=== PATIENT | female | born 1950 | race Caucasian/White ===

== ENCOUNTER 2017-05-16 05:55 | Emergency (ER) | payer MEDICARE ==
[2017-05-16] MEDS ORDERED: Furosemide 20 MG/2 ML VIAL ONE (06:41)
[2017-05-16 06:45] LABS: #Basophils 0.1 thou/uL (0.0-0.2); #Eosinphils 0.2 thou/uL (0.0-0.7); #Lymphocytes 3.8 thou/uL (1.20-3.40); #Monocytes 0.9 thou/uL (0.11-0.59); #Neutrophils 5.7 thou/uL (1.40-6.50); %Basophils 0.9 % (0.0-1.0); %Eosinophils 2.1 % (0.0-10.0); %Lymphocytes 35.7 % (21.0-51.0); %Monocytes 7.9 % (0.0-10.0); %Neutrophils 53.3 % (42.0-75.0); Hemoglobin 14.1 g/dL (12.0-16.0); Mean Corpuscular HGB CONC 32.7 g/dL (32.0-36.0); Mean Corpuscular Hemoglobin 29.4 pg (27.0-31.0); Mean Corpuscular Volume 89.9 fl (81.0-99.0); Mean Platelet Volume 7.7 fL (7.4-10.4); Platelet Count 211 thou/uL (130-400); RBC Distribution Width 12.9 % (11.5-14.5); White Blood Cell (WBC) Count 10.7 thou/uL (4.8-10.8)
[2017-05-16 07:04] LABS: ALT (SGPT) 20 U/L (8-55); AST (SGOT) 26 U/L (5-34); Albumin 4.1 g/dL (3.4-4.8); Alkaline Phosphatase 113 U/L (40-150); Anion Gap 16 mmol/L (10-20); BUN (Urea Nitrogen) 11 mg/dL (9.8-20.1); Bilirubin, Total 0.5 mg/dL (0.2-1.2); Calc. Creatinine Clearance 0 mL/min (70-130); Calcium 9.1 mg/dL (7.8-10.44); Carbon Dioxide 25 mmol/L (23-31); Chloride 100 mmol/L (98-107); Estimated GFR-MDRD 49; Globulin 4.2 g/dL (2.4-3.5); Glucose 258 mg/dL (80-115); Potassium 3.6 mmol/L (3.5-5.1); Protein, Total 8.3 g/dL (6.0-8.3); Sodium 137 mmol/L (136-145)
[2017-05-16 07:07] LABS: CKMB 0.8 ng/mL (0-6.6); Troponin I 0.013 ng/mL (< 0.028)
--- NOTE | 2017-05-16 07:51 | RAD ---
TWO VIEWS CHEST: Date: 05-16-17 Comparison: 09-08-10 History: Chest pain. FINDINGS: There is mild pulmonary vascular prominence and mild prominence of the cardiac silhouette, stable. No pneumothorax, pleural fluid, focal consolidation or alveolar edema. There is multilevel mid thoracic spine disc space narrowing and anterior osteophyte formation. IMPRESSION: Prominent cardiac silhouette with mild pulmonary vascular congestion. No lobar consolidation or alveo lar edema. POS: [facility]
== END 2017-05-16 08:57 | disposition home or self-care (01) ==
LOC: ERS 05:55
DX: J40 Bronchitis, not specified as acute or chronic (principal); E11.9 Type 2 diabetes mellitus without complications; E03.9 Hypothyroidism, unspecified; I10 Essential (primary) hypertension; Z87.891 Personal history of nicotine dependence; Z79.84 Long term (current) use of oral hypoglycemic drugs; Z79.899 Other long term (current) drug therapy
CPT/HCPCS: 71046; 80053; 82553; 84484; 85025; 87040; 93005; 94640; 96374; J1940

== ENCOUNTER 2019-04-28 21:27 | Inpatient (IN) | payer MEDICARE ==
[2019-04-28 21:58] LABS: #Basophils 0.1 thou/uL (0.0-0.2); #Eosinphils 0.1 thou/uL (0.0-0.7); #Lymphocytes 3.3 thou/uL (1.20-3.40); #Monocytes 1.4 thou/uL (0.11-0.59); #Neutrophils 10.2 thou/uL (1.40-6.50); %Basophils 0.8 % (0.0-1.0); %Eosinophils 0.9 % (0.0-10.0); %Lymphocytes 21.8 % (21.0-51.0); %Monocytes 9.1 % (0.0-10.0); %Neutrophils 67.4 % (42.0-75.0); Hemoglobin 14.2 g/dL (12.0-16.0); Mean Corpuscular HGB CONC 32.5 g/dL (32.0-36.0); Mean Corpuscular Hemoglobin 29.9 pg (27.0-31.0); Mean Corpuscular Volume 91.9 fL (78.0-98.0); Mean Platelet Volume 7.5 fL (7.4-10.4); Platelet Count 351 thou/uL (130-400); RBC Distribution Width 15.3 % (11.5-14.5); Red Blood Cell (RBC) Count 4.74 mill/uL (4.20-5.40); White Blood Cell (WBC) Count 15.1 thou/uL (4.8-10.8)
--- NOTE | 2019-04-28 22:01 | RAD ---
Chest AP view INDICATION: Bradycardia with weakness COMPARISON: March 01, 2018 FINDINGS: Lungs: There is right-sided pleural parenchymal opacity suspicious for small right pleural effusion with either right basilar atelectasis or pneumonia. Cardiac silhouette: There is moderate cardiomegaly with pulmonary vascular congestion Pulmonary vasculature: Moderate pulmonary vascular congestion Pleural spaces: Small bilateral pleural effusions, right greater than left Upper abdomen: No abnormality seen. Osseous structures: No acute osseous abnormality. Additional findings: None. IMPRESSION: Findings suspicious for mild/moderate CHF
[2019-04-28 22:19] LABS: Actual Bicarbonate (HCO3a) 18.9 mEq/L (22-28); Analyzer IN Cardio ER; CO2 Tension 39.4 mmHg (35.0-45.0); Calcium, Ionized 1.17 mmol/L (1.12-1.30); Carboxyhemoglobin (COHb) 0.7 gm% (0.0-3.0); Hemoglobin (Hb) 14.2 g/dL (12.0-16.0); O2 Tension (PaO2) 78.9 mmHg (> 80.0)
[2019-04-28 22:33] LABS: INR-International Normal Ratio 1.2; PTT 38.2 SEC (22.9-36.1); Prothrombin Time 15.6 SEC (12.0-14.7)
[2019-04-28 22:42] LABS: ALT (SGPT) 8 U/L (8-55); AST (SGOT) 12 U/L (5-34); Albumin 3.6 g/dL (3.4-4.8); Alkaline Phosphatase 94 U/L (40-110); Anion Gap 16 mmol/L (10-20); BUN (Urea Nitrogen) 79 mg/dL (9.8-20.1); Bilirubin, Total 0.6 mg/dL (0.2-1.2); Calc. Creatinine Clearance 0 mL/min (70-130); Calcium 9.2 mg/dL (7.8-10.44); Carbon Dioxide 21 mmol/L (23-31); Chloride 96 mmol/L (98-107); Estimated GFR-MDRD 19; Globulin 3.4 g/dL (2.4-3.5); Glucose 115 mg/dL (80-115); Magnesium 1.5 mg/dL (1.6-2.6); Potassium 3.9 mmol/L (3.5-5.1); Sodium 129 mmol/L (136-145)
[2019-04-28 22:53] LABS: Puncture Site RBA
[2019-04-28] MEDS ORDERED: Lidocaine 1% (PF) 30 ML VIAL ONE (23:17)
[2019-04-28] MEDS ORDERED: Azithromycin 500 MG VIAL ONE (23:18)
[2019-04-28] MEDS ORDERED: cefTRIAXone\\ROCEPHIN 2 GM VIAL ONE (23:18)
[2019-04-29 00:33] LABS: Bacteria/HPF None Seen HPF (None Seen); Bilirubin Negative (Negative); Blood, Urine Negative (Negative); Clarity Turbid (Clear); Glucose, Urine (Dipstick) Normal (Negative); Leukocyte Negative Leu/uL (Negative); Nitrite Negative (Negative); Protein, Urine (Dipstick) 30 mg/dL (Neg-Trace); RBC/HPF 0-3 HPF (0-3)
[2019-04-29] MEDS ORDERED: Furosemide 40 MG/4 ML VIAL ONE (00:33)
[2019-04-29] MEDS ORDERED: Acetaminophen 325 MG TAB PO PRN ×2 (01:44→02:07)
[2019-04-29] MEDS ORDERED: Nitroglycerin 0.4 MG TAB (25 Tab Bottle) PO PRN (02:03)
[2019-04-29] MEDS ORDERED: Senokot S 8.6-50 MG TAB PO PRN (02:07)
[2019-04-29] MEDS ORDERED: Calcium Carbonate 500 MG ChewTAB PO PRN (02:07)
[2019-04-29] MEDS ORDERED: Dextrose 5% in Water 1,000 ML IV PRN (02:10)
[2019-04-29] MEDS ORDERED: Dextrose 50% Abboject 50 ML SYRINGE SLOW IVP PRN (02:10)
[2019-04-29] MEDS ORDERED: Insulin Regular 300 UNITS/3 ML VIAL SC PRN (02:10)
[2019-04-29] MEDS ORDERED: Acetaminophen 650 MG/20.3 ML UDCUP PO PRN (02:11)
[2019-04-29] MEDS ORDERED: SYSTANE 3.5 GM TUBE EA EYE PRN (02:11)
[2019-04-29] MEDS ORDERED: Sodium Chloride 0.9% 1,000 ML IV SCH (02:15)
[2019-04-29] MEDS ORDERED: Magnesium 2 GM/50 ML 2 GM in Premix Bag 1 BAG IVPB SCH (02:30)
[2019-04-29] MEDS ORDERED: Furosemide 100 MG in Sodium Chloride 0.9% 90 ML IVPB SCH (02:30)
[2019-04-29] MEDS ORDERED: Furosemide 100 MG in Sodium Chloride 0.9% 100 ML IVPB SCH (02:30)
[2019-04-29] MEDS ORDERED: Atropine Sulfate 1 mg/1 ml Vial IVP PRN (02:31)
--- NOTE | 2019-04-29 02:37 | HP ---
PRIMARY CARE: Azalia López MD CHIEF COMPLAINT: Shortness of breath. HISTORY OF PRESENT ILLNESS: The patient is a 69-year-old female with morbid obesity; obstructive sleep apnea, on CPAP; and chronic diastolic heart failure, presented to the emergency room by EMS with above complaints. Over the last 3 months, the patient has gradual worsening shortness of breath that got worse over the past week. It acutely got worse over the last 3 to 4 days. The patient gets short of breath on minimal exertion. She also noticed bilateral lower extremity swelling. She was unable to lie down flat as well. She is compliant with CPAP at night for obstructive sleep apnea. She had some dry cough as well. She also has some nausea along with intermittent vomiting for the past 3 to 4 days. Per family, she has not been eating and drinking well over the past few months. She has been getting increasingly weak. No fever or chills reported. The patient was found to have bradycardia with heart rate in 40s. She received 1.5 mg of atropine by EMS. Her blood pressure by EMS was 113/86. Multiple attempts were made to get a central line in the emergency room, which was unsuccessful by ER physician. She is currently on noninvasive positive-pressure ventilation. History is limited at this time from the patient. Most of the information was obtained from the daughter who is the primary decision maker. The patient is full code. PAST MEDICAL HISTORY: 1. Chronic diastolic heart failure. 2. Obstructive sleep apnea, on CPAP. 3. Morbid obesity. 4. Diabetes mellitus, type 2. 5. Coronary artery disease. The patient had a catheterization in 2013 that showed mild single-vessel coronary artery disease. 6. Dyslipidemia. 7. Gastroesophageal reflux disease. 8. Hypertension. 9. Chronic low back pain. 10. History of supraventricular tachycardia. 11. Hypothyroidism. 12. History of tuberculosis in the past. 13. Helicobacter pylori, recently completed treatment. PAST SURGICAL HISTORY: 1. Appendectomy in 2002. 2. Cholecystectomy. 3. Cardiac catheterization in 2013 that showed minimal single-vessel disease. 4. Tonsillectomy. 5. Adenoidectomy. 6. Tubal ligation. ALLERGIES: THE PATIENT IS ALLERGIC TO IODINE, SULFA, AND CHLORPROMAZINE. FAMILY HISTORY: Positive for heart disease in several family members. SOCIAL HISTORY: The patient is a former smoker. No alcohol or drug use. She is . CURRENT HOME MEDICATIONS: Confirmed at the bedside. 1. Lisinopril 20 mg daily. 2. Lasix 40 mg b.i.d. This was recently increased by her primary care physician. 3. Atenolol 100 mg daily. 4. Levothyroxine 125 mcg daily. 5. Celexa 20 mg daily. 6. Protonix 40 mg daily. 7. Cardizem 120 mg daily. 8. Metformin extended release 500 mg b.i.d. REVIEW OF SYSTEMS: Limited due to current clinical condition. PHYSICAL EXAMINATION: VITAL SIGNS: Temperature 97.7, respirations 24, pulse of 53, blood pressure of 93/51, and O2 saturation of 95% on 4 L nasal cannula. She was later placed on BiPAP. GENERAL: A 69-year-old female, ill-appearing, in moderate respiratory distress, able to complete short phrases. HEENT: Head, atraumatic and normocephalic. Sclerae anicteric. The patient currently on NIPPV. NECK: Supple. JVD cannot be appreciated due to body habitus. LUNGS: Showed accessory muscle use with wheezing and rhonchi. There were bibasilar rales as well. HEART: S1, S2 present. Regular. No rubs or gallops. ABDOMEN: Obese, distended. Bowel sounds present. No costovertebral angle tenderness. EXTREMITIES: Significant bilateral lower extremity pitting edema. No calf tenderness. SKIN: Warm and dry. LYMPH NODES: No palpable lymph nodes in the neck. PERIPHERAL VASCULAR: Radial pulses palpable bilaterally. MUSCULOSKELETAL: No joint swelling tenderness. SKIN: Warm and dry. LYMPH NODES: No palpable lymph nodes in the neck. NEUROLOGIC: Could not be reliably done due to current clinical condition. PSYCHIATRY: Could not be reliably done due to current clinical condition. LABORATORY FINDINGS: CBC showed WBC 15.1 with hemoglobin 14.2, hematocrit 43.6, and platelets 351. PT of 15.6, INR 1.2, PTT 38.2. ABGs showed pH 7.30 with pCO2 of 39.4, PO2 of 78.9, bicarbonate of 18.9, sodium 128. Chemistry showed sodium 129, potassium 3.9, chloride 96, bicarb 21, BUN 79, creatinine 2.47, magnesium 1.5. TSH was 3.8. Lactic acid 1.2. BNP was 797. Troponin was 0.020. Influenza screen was negative. IMAGING STUDIES: Chest x-ray by my review showed pulmonary vascular congestion. EKG by my review showed sinus bradycardia with right bundle-branch block. IMPRESSION: 1. Acute hypoxic respiratory failure, secondary to acute on chronic diastolic heart failure exacerbation. 2. Acute kidney injury on chronic kidney, stage 3. 3. Symptomatic bradycardia, status post atropine by EMS. 4. Hyponatremia. 5. Hypomagnesemia. 6. Diabetes mellitus, type 2. 7. Coronary artery disease, status post catheterization in 2013 at [facility] that showed mild single-vessel coronary artery disease. 8. Dyslipidemia. 9. Gastroesophageal reflux disease. 10. Hypertension. 11. Morbid obesity. 12. Chronic low back pain. 13. History of supraventricular tachycardia. 14. Hypothyroidism. 15. History of tuberculosis. PLAN: The patient will be monitored in the intensive care unit. Central line was attempted, however, unsuccessful. The patient is in acute kidney injury as well. We will start her on gentle Lasix drip if her blood pressure tolerates. Cardiology and Pulmonary consultation. Continue noninvasive positive-pressure ventilation for now. Insulin sliding scale. Fluid restriction. Serial troponins. Replace magnesium. Hold lisinopril for now. The patient and the family understand the plan of care. Job ID: [id number]
[2019-04-29] MEDS: DOPamine 400 MG/D5W 250 ML 250 ML IVPB SCH ×2 (04:09→15:54)
--- NOTE | 2019-04-29 04:21 | PDOC.BPN ---
- Brief Progress Note Attending Note: Right IJ CVC placed. No compilations. CXR appears normal. See resident note for details.
[2019-04-29] MEDS ORDERED: Ondansetron PF 4 MG/2 ML Vial IVP SCH ×2 (04:30→23:00)
[2019-04-29 04:36] LABS: #Lymphocytes 2.7 thou/uL (1.20-3.40); #Monocytes 1.3 thou/uL (0.11-0.59); #Neutrophils 10.2 thou/uL (1.40-6.50); %Basophils 0.2 % (0.0-1.0); %Eosinophils 0.3 % (0.0-10.0); %Lymphocytes 19.1 % (21.0-51.0); %Monocytes 8.9 % (0.0-10.0); %Neutrophils 71.5 % (42.0-75.0); Hemoglobin 13.5 g/dL (12.0-16.0); Mean Corpuscular HGB CONC 33.1 g/dL (32.0-36.0); Mean Corpuscular Volume 90.8 fL (78.0-98.0); Mean Platelet Volume 7.9 fL (7.4-10.4); Platelet Count 347 thou/uL (130-400); Red Blood Cell (RBC) Count 4.51 mill/uL (4.20-5.40); White Blood Cell (WBC) Count 14.3 thou/uL (4.8-10.8)
[2019-04-29 05:02] LABS: ALT (SGPT) 10 U/L (8-55); AST (SGOT) 13 U/L (5-34); Albumin 3.5 g/dL (3.4-4.8); Alkaline Phosphatase 88 U/L (40-110); Anion Gap 16 mmol/L (10-20); BUN (Urea Nitrogen) 84 mg/dL (9.8-20.1); Bilirubin, Total 0.5 mg/dL (0.2-1.2); Calc. Creatinine Clearance 57 mL/min (70-130); Carbon Dioxide 22 mmol/L (23-31); Chloride 96 mmol/L (98-107); Estimated GFR-MDRD 18; Globulin 3.4 g/dL (2.4-3.5); Glucose 99 mg/dL (80-115); Magnesium 2.3 mg/dL (1.6-2.6); Potassium 3.6 mmol/L (3.5-5.1); Protein, Total 6.9 g/dL (6.0-8.3); Sodium 130 mmol/L (136-145)
[2019-04-29 05:21] LABS: CKMB 1.9 ng/mL (0-6.6)
[2019-04-29] MEDS: Levothyroxine Sodium 125 MCG TAB PO SCH (05:48)
--- NOTE | 2019-04-29 05:58 | PDOC.BPN ---
<Danial De Santiago S - Last Filed: 04/29/19 05:53> - Brief Progress Note INDICATION: Hypotension, Bradycardia, Symptomatic Heart Failure PROCEDURE ENROLLMENT ELIGIBILITY REPRESENTATIVE: Yonny ATTENDING PHYSICIAN: Kin In Attendance: Yes Verbal consent obtained from patient before the procedure. PROCEDURE SUMMARY: Initial handwash prior to starting sterile technique. A time out was performed. My hands were washed immediately prior to the procedure. I wore a surgical cap, mask with protective eyewear, full gown and sterile gloves throughout the procedure. The patient was placed in Trendelenburg position. Right neck region was prepped using chlorhexidine scrub and draped in sterile fashion using a full drape and sterile probe cover employed. The medial and lateral heads of the sternocleidomastoid muscle were identified as was the carotid pulse. The Internal Jugular vein was identified using the ultrasound. Anesthesia was achieved over the vein using 1% lidocaine. Using real-time out of plane guidance , the introducer needle was inserted into the Internal Jugular vein under direct ultrasound visualization. Venous blood was withdrawn. The syringe was removed and a guidewire was advanced into the introducer needle. A small incision was made at the skin surface with a scalpel and the introducer needle was exchanged for a dilator over the guidewire. After appropriate dilation was obtained, the dilator was exchanged over the wire for a central venous catheter. The wire was removed and the catheter was sutured in place. A sterile shield was placed over the catheter at the insertion site. The patient tolerated the procedure without any hemodynamic compromise. At time of procedure completion, all ports aspirated and flushed properly. Post-procedure chest x-ray viewed in room with proper placement, no pneumothorax. Blood loss was minimal. Danial De Santiago, 04/29/19 <Cresencio Sanderson - Last Filed: 04/29/19 19:21> Addendum - Attending - Attending Attestation Date/Time: 04/29/191919 I personally supervised and assisted with the procedure.
--- NOTE | 2019-04-29 06:10 | PDOC.OP ---
Operative Note - Operative Note Operative Note: INDICATION: Hypotension, Bradycardia, Symptomatic Heart Failure PROCEDURE PROJECT CONTROLS SCHEDULER: Anyi/Rebecca ATTENDING PHYSICIAN: Kin In Attendance: Yes Verbal consent obtained from patient before the procedure. PROCEDURE SUMMARY: Initial handwash prior to starting sterile technique. A time out was performed. My hands were washed immediately prior to the procedure. I wore a surgical cap, mask with protective eyewear, full gown and sterile gloves throughout the procedure. The patient was placed in Trendelenburg position. Right neck region was prepped using chlorhexidine scrub and draped in sterile fashion using a full drape and sterile probe cover employed. The medial and lateral heads of the sternocleidomastoid muscle were identified as was the carotid pulse. The Internal Jugular vein was identified using the ultrasound. Anesthesia was achieved over the vein using 1% lidocaine. Using real-time out of plane guidance , the introducer needle was inserted into the Internal Jugular vein under direct ultrasound visualization. Venous blood was withdrawn. The syringe was removed and a guidewire was advanced into the introducer needle. A small incision was made at the skin surface with a scalpel and the introducer needle was exchanged for a dilator over the guidewire. After appropriate dilation was obtained, the dilator was exchanged over the wire for a central venous catheter. The wire was removed and the catheter was sutured in place. A sterile shield was placed over the catheter at the insertion site. The patient tolerated the procedure without any hemodynamic compromise. At time of procedure completion, all ports aspirated and flushed properly. Post-procedure chest x-ray viewed in room with proper placement, no pneumothorax. Blood loss was minimal. Danial De Santiago DO 04/29/19 Addendum - Attending - Attending Attestation Date/Time: 04/29/191920 I personally supervised and assisted with the procedure.
--- NOTE | 2019-04-29 08:33 | RAD ---
CHEST 1 VIEW PORTABLE: HISTORY: Dyspnea. COMPARISON: 04/28/2019. FINDINGS: Alveolar parenchymal changes in the right lower lobe, evidence for pneumonia. Bilateral vascular con gestion. Minimal cardiomegaly. IMPRESSION: Evidence for right lower lobe pneumonia and some bilateral vascular congestion. No pneumothorax. POS: [facility]
--- NOTE | 2019-04-29 08:46 | RAD ---
PORTABLE CHEST 1 VIEW: DATE: 04/29/2019. TIME: 3:35 AM. HISTORY: Central line placement. FINDINGS/IMPRESSION: There has been interval placement of a right internal jugular septal line with tip in the projection of the SVC since earlier exam of 12:21 a.m. from the same date. No pneumothorax is seen. The remain claude of the exam was stable. POS: [facility]
[2019-04-29] MEDS: Aspirin 81 mg Enteric Coated Tablet PO SCH (08:55)
[2019-04-29] MEDS: Heparin 5,000 UNITS/ML VIAL SC SCH ×3 (08:55→20:46)
[2019-04-29] MEDS: Citalopram 20 MG TAB PO SCH (08:55)
[2019-04-29] MEDS ORDERED: Famotidine 20 MG TAB PO SCH (09:00)
[2019-04-29] MEDS ORDERED: Famotidine/PF 20 mg/2ml Vial SLOW IVP SCH (09:00)
--- NOTE | 2019-04-29 09:44 | ULT ---
US Venous Doppler Bilat History: Lower extremity edema Comparison: None. Findings: Real-time grayscale, color, and spectral analysis of the bilateral lower extremity venous s ystem was performed. The common femoral, femoral, proximal portions greater saphenous and deep femoral veins as well as the popliteal and posterior tibial veins were interrogated. Normal flow, augmentation, and compression. Impression: No deep venous thrombosis.
--- NOTE | 2019-04-29 13:19 | ULT ---
US Abdominal History: Severe abdominal pain and swelling Comparison: None. Findings: Real-time grayscale and color evaluation of the abdomen was performed. The pancreas not well seen. Visualized portion of the aorta and IVC are unremarkable. No hepatic mass is appreciated. Portal vein is patent with antegrade flow although there is increased phasicity. Prior cholecystectomy. Common bile duct measures 6 mm, normal. Small volume perihepatic fluid. Liver is enlarged measuring 21 cm in length. Right kidney measures 10.5 x 6.1 x 5.5 cm without mass, hydronephrosis, or abnormal calcifications. T he left kidney measures 8.5 x 5.7 x 5.4 cm without mass, hydronephrosis, or abnormal calcifications. Spleen measures 11.7 cm in length. Impression: 1. Small volume ascites 2. Increased phasicity of the portal venous waveform suggesting diastolic cardiac dysfunction. 3. Mild hepatomegaly.
--- NOTE | 2019-04-29 14:15 | CON ---
DATE OF CONSULTATION: 04/29/2019 INDICATION FOR CONSULTATION: A 69-year-old female with multiple medical problems, has a history of diastolic heart failure, apparently also has a history of mild coronary artery disease by previous note and cardiac catheterization several years ago. Apparently of a single-vessel disease in 2013, but she does have many comorbid conditions that might certainly cause her to develop coronary artery disease over the last six years. She has history of dyslipidemia. She has obstructive sleep apnea. She has history of diabetes and hypertension. We were asked to see her in consultation due to the diastolic heart failure. She needs to undergo evaluation by community outreach coordinator. She had actually been scheduled to see Dr. Hopkins in the office, but prior to this she was admitted complaining of increasing shortness of breath, weight gain, abdominal distention, and pain as well as chronic diarrhea. HISTORY OF PRESENT ILLNESS: As noted above, this 69-year-old female with multiple medical problems, which include chronic diastolic heart failure and history of coronary artery disease with single-vessel disease by cardiac catheterization in 2013, has not had any stent placements that we are aware of. She has had no bypass surgery. She does have a history of diastolic heart failure as well as sleep apnea, diabetes, dyslipidemia, hypertension, as well as other medical problems. She has also had a history apparently in the past of some supraventricular tachycardia. She has been seen recently at [facility] in the emergency room, was sent home since she may have had some mild pancreatitis, but was not bad enough to treat. She was seen then by the community outreach coordinator, who would have anticipated performing either upper or lower endoscopy. She has been treated for I believe H. pylori, but that her symptoms had not improved. She continues to have abdominal distention with pain. She is unable to take good breath because most likely due to the obesity pressing upon the diaphragm. She also had some bradycardia this morning. Heart rates in the 40s. She has been placed on low-dose dopamine. She has been on dopamine drip and is stable otherwise at this time. Heart rate is now in the 50s and 60s. She denies any chest pain and she is breathing better, but she has a CPAP mask in place at this time. She did receive 1.5 mg of IV atropine for heart rate in the 40s. PAST MEDICAL HISTORY: Significant for chronic diastolic heart failure and obstructive sleep apnea, she is on a CPAP mask. She has morbid obesity, diabetes type 2, coronary artery disease and as noted above, she had single-vessel disease by reports in 2014 by cardiac catheterization. She has dyslipidemia and gastroesophageal reflux disease. She also has hypertension and chronic back pain. Some history of supraventricular tachycardia, history of TB in the past, and hypothyroidism. She recently had a treatment for Helicobacter. Her family also tells me that she has diverticulosis. She has had an appendectomy, cholecystectomy, tonsillectomy, adenoidectomy, and tubal ligation. ALLERGIES: SHE IS ALLERGIC TO SULFA, CHLORPROMAZINE, AND IODINE. MEDICATIONS: Prior to admission included: 1. Lisinopril. 2. Lasix. 3. Atenolol. 4. Levothyroxine. 5. Celexa. 6. Protonix. 7. Cardizem. 8. Metformin. REVIEW OF SYSTEMS: Unable to obtain review of systems at this time, but the family tells me that she has been becoming worse over the last three months with increased swelling, increased edema also in the lower extremities, and abdominal distention as well as continued diarrhea and not feeling well, unable to ambulate as well as she could in the past. PHYSICAL EXAMINATION: GENERAL: Reveals a morbidly obese female, who is on a CPAP mask at this time. VITAL SIGNS: Blood pressure is 124/77, heart rates in the 60s and shows a sinus rhythm, O2 saturation 96%, and respiratory rate is 20. She is afebrile. HEENT: Shows head to be normocephalic and atraumatic. I could not hear any significant bruits. CHEST: She has decreased breath sounds throughout, difficult to hear, but I do not hear any specific changes. I cannot palpate posteriorly due to the morbid obesity. CARDIOVASCULAR: Her heart sounds are somewhat distant. She has a regular rhythm at this time, and there were no gross murmurs. ABDOMEN: Tender. I can barely examine the abdomen. She has tenderness throughout. She has morbid obesity. She has abdominal wall edema. I cannot hear any bowel sounds. It appears that this is fluid or it is being tympanic. It appears to be dull to percussion. EXTREMITIES: Show 2 to 3+ lower extremity edema. She also has a small opened draining ulceration on the left mid upper medial thigh less than half a centimeter in diameter. NEUROLOGIC: She seems to be somewhat drowsy. She does shake her head and tries to answer some questions, but otherwise, she is lying in the bed with a CPAP mask on. LABORATORY DATA: Shows a sodium of 129, potassium was 3.9, chloride was 96, bicarb was 21, creatinine was 2.47, and BUN was 79. Her BNP was 797 and troponin I was 0.02. Her INR is 1.2. Her pO2 on the blood gas was 78.9, bicarb of 18.9, pCO2 of 39, and a pH of 7.3. Hemoglobin 14.2, WBC of 15.1, and platelet count is 351,000. Her EKG shows a sinus bradycardia with what appears to be a right bundle-branch block. QRS complexes are rather small, but this may be due to the morbid obesity. There were no acute ST-segment changes. Her heart rate was 51 beats per minute. She had been taking beta blockers at home and due to her renal insufficiency, she may have been retaining some of the beta trista affects and may be bradycardic. We will see whether or not she improves after the beta-trista effect has worn off and we will maintain her on the dopamine at this time to continue with the heart rate. IMPRESSION AND PLAN: 1. Bradycardia, which may be due to the beta blockers and chronic renal insufficiency, which appears to be acute on chronic and worsening. I would suggest she be seen by labeling associate. 2. History of coronary artery disease in 2013 with single-vessel disease, which appears to be mild. We will try to obtain the records from [facility] to verify that. 3. History of diastolic heart failure, I believe she underwent an echocardiogram. We will review those and further recommendations will depend on the results of the echocardiogram. 4. Sleep apnea. She has a continuous positive airway pressure mask on at this time. 5. Diabetes, this will be dealt with by the primary care service. 6. Morbid obesity, this is a very unfortunate female, who most likely has very little mobility. 7. History of hypertension, which is stable at this time. 8. History of gastroesophageal reflux disease and also recent abdominal distention as well as ascites and also recent history of Helicobacter pylori. I believe she will be seen by a community outreach coordinator, if not in the near future, I believe an ultrasound of the abdomen will be in order just to make sure she has not worsened or she does not have more free fluid in the abdomen. There was some note about free fluid in the abdomen on her previous review of the records. We will be more than happy to continue to follow the patient with you, but at this time, further recommendations will follow after the echocardiogram has been evaluated and also after we review the records from [facility] from 2013, but at this time, I believe she will need to have some type of intervention for her abdomen as I do not hear any bowel sounds, appears to be distended, and appears to be fluid of uncertain etiology. Job ID: [id number]
[2019-04-29] MEDS ORDERED: Furosemide 40 MG/4 ML VIAL SLOW IVP SCH ×2 (15:30→22:00)
[2019-04-29 16:59] LABS: Anion Gap 17 mmol/L (10-20); BUN (Urea Nitrogen) 80 mg/dL (9.8-20.1); Calc. Creatinine Clearance 65 mL/min (70-130); Calcium 9.2 mg/dL (7.8-10.44); Carbon Dioxide 21 mmol/L (23-31); Chloride 97 mmol/L (98-107); Estimated GFR-MDRD 21; Glucose 127 mg/dL (80-115); Potassium 3.9 mmol/L (3.5-5.1); Sodium 131 mmol/L (136-145)
--- NOTE | 2019-04-29 18:37 | CON ---
DATE OF CONSULTATION: 04/29/2019 HISTORY OF PRESENT ILLNESS: Ms. Duran is a 69-year-old female, presented with shortness of breath. She has CPAP at home for sleep apnea. It is unclear to me who follows this. Apparently, she has been wearing her CPAP all the time because of her shortness of breath. She has diastolic dysfunction. She apparently has been complaining of abdominal swelling and lower extremity swelling. PAST MEDICAL HISTORY: Remarkable for: 1. Single-vessel coronary artery disease by 2014 catheterization. 2. History of diastolic dysfunction. 3. History of sleep apnea. It is unclear when her last sleep study was. 4. History of diabetes. 5. History of lipid disorder. 6. History of hypertension. 7. History of obesity. 8. History of SVT. 9. History of H. pylori. 10. History of bradycardia in this admission, being treated with low-dose dopamine. 11. History of chronic back pain. 12. History of tuberculosis. 13. History of hypothyroidism. 14. History of diverticulosis. 15. History of appendectomy. 16. History of cholecystectomy. 17. History of tonsillectomy. 18. History of tubal ligation. ALLERGIES: REPORTS SULFA, CHLORPROMAZINE, AND IODINE ALLERGIES. MEDICATIONS: Prior to admission, she was on: 1. Lisinopril. 2. Lasix. 3. Atenolol. 4. Synthroid. 5. Celexa. 6. Protonix. 7. Cardizem. 8. Metformin. REVIEW OF SYSTEMS: Ten-point review of systems is not obtainable given that she is wearing BiPAP. PHYSICAL EXAMINATION: VITAL SIGNS: She is afebrile, heart rates in the 60s, blood pressure 114/70, respiratory rate is 20. HEAD AND NECK: Unremarkable. LUNGS: Remarkable for decreased breath sounds at both lung bases. HEART: Regular rhythm. She has a normal rate because of the dopamine. Respiratory rates in the teens to low 20s. ABDOMEN: Soft. She has an abdominal wall exam consistent with abdominal wall edema. EXTREMITIES: She has lower extremity edema up to her thighs. LABORATORY DATA: Echocardiogram shows diastolic dysfunction as well as left atrial dilation. Abdominal ultrasound was suggestive of diastolic dysfunction as well as hepatomegaly. IMPRESSION: Pulmonary hypertension, likely secondary to combination of diastolic dysfunction and sleep apnea. It is unclear to me how effective her home CPAP is. At this point in time, she needs to be gently diuresed. She had a creatinine of 2.6. This will obviously need to be followed with diuresis, but hopefully with the dopamine and better blood pressure, she will tolerate some volume removal. She does not appear to have any liver synthetic dysfunction. Blood gas 2 days ago showed a pH 7.3, CO2 of 39, and pO2 of 78. We will follow with the other physicians following for her. TIME SPENT: This is a 70-minute consult, 50% of the time was spent on the unit coordinating care. Job ID: [id number] [email or web address]
[2019-04-29] MEDS: cefTRIAXone\\ROCEPHIN 2 GM in Sodium Chloride 0.9% 100 ML IVPB SCH (20:46)
[2019-04-30 04:54] LABS: #Eosinphils 0.1 thou/uL (0.0-0.7); #Lymphocytes 1.4 thou/uL (1.20-3.40); #Neutrophils 10.5 thou/uL (1.40-6.50); %Basophils 0.3 % (0.0-1.0); %Eosinophils 0.7 % (0.0-10.0); %Lymphocytes 10.8 % (21.0-51.0); %Monocytes 7.8 % (0.0-10.0); %Neutrophils 80.4 % (42.0-75.0); Hemoglobin 14.2 g/dL (12.0-16.0); Mean Corpuscular HGB CONC 30.9 g/dL (32.0-36.0); Mean Corpuscular Volume 90.7 fL (78.0-98.0); Mean Platelet Volume 7.7 fL (7.4-10.4); Platelet Count 356 thou/uL (130-400); RBC Distribution Width 15.1 % (11.5-14.5); Red Blood Cell (RBC) Count 5.05 mill/uL (4.20-5.40); White Blood Cell (WBC) Count 13.1 thou/uL (4.8-10.8)
[2019-04-30 05:19] LABS: ALT (SGPT) 15 U/L (8-55); AST (SGOT) 39 U/L (5-34); Albumin 3.7 g/dL (3.4-4.8); Alkaline Phosphatase 103 U/L (40-110); Anion Gap 18 mmol/L (10-20); BUN (Urea Nitrogen) 80 mg/dL (9.8-20.1); Bilirubin, Total 0.5 mg/dL (0.2-1.2); Calc. Creatinine Clearance 73 mL/min (70-130); Calcium 9.4 mg/dL (7.8-10.44); Carbon Dioxide 22 mmol/L (23-31); Chloride 97 mmol/L (98-107); Estimated GFR-MDRD 23; Globulin 3.6 g/dL (2.4-3.5); Glucose 131 mg/dL (80-115); Potassium 3.8 mmol/L (3.5-5.1); Protein, Total 7.3 g/dL (6.0-8.3); Sodium 133 mmol/L (136-145)
[2019-04-30] MEDS: Levothyroxine Sodium 125 MCG TAB PO SCH (05:36)
[2019-04-30] MEDS: DOPamine 400 MG/D5W 250 ML 250 ML IVPB SCH (05:36)
--- NOTE | 2019-04-30 08:00 | RAD ---
Portable upright frontal chest radiograph: 04/30/2019 COMPARISON: 04/29/2019 HISTORY: Congestive heart failure FINDINGS: Stable right-sided vascular catheter. Stable prominence of the cardiac silhouette. There is pulmonary vascular congestion with perihilar and bibasilar interstitial prominence. There is bibasilar airspace disease with associated pleural effusions, right greater than left, unchanged when compared the prior exam. IMPRESSION: Stable appearance of the chest as detailed above. Findings suggest pulmonary edema. Infec tion or aspiration cannot be excluded. Follow-up to resolution advised.
[2019-04-30] MEDS: Heparin 5,000 UNITS/ML VIAL SC SCH ×3 (08:19→20:19)
[2019-04-30] MEDS: Aspirin 81 mg Enteric Coated Tablet PO SCH (08:19)
[2019-04-30] MEDS: Citalopram 20 MG TAB PO SCH (08:20)
[2019-04-30] MEDS ORDERED: Furosemide 40 MG/4 ML VIAL IVP SCH (08:39)
--- NOTE | 2019-04-30 09:47 | PRG ---
DATE OF SERVICE: 04/30/2019 Radha Duran says she is feeling better. OBJECTIVE: VITAL SIGNS: She is afebrile. Heart rate in the 60s. Respiratory rate 17, oximetry is 94% on BiPAP. She is switched to a cannula and oximetry is 100%, blood pressure is 112/78. Intake and outputs -1322. LUNGS: Remarkable for coarse equal breath sounds. HEART: Regular rhythm. Distant S1 and S2. ABDOMEN: Soft and fairly massive. EXTREMITIES: With edema all the way to her thighs. LABORATORY DATA: Sodium 133, potassium 3.8, chloride 97, bicarb 22, BUN 80, creatinine is down from 2.35 to 2.1 by the negative fluid balance. White count 13.1, hemoglobin 14.2, platelets 356. I talked to her about her CPAP and her sleep study. She had not had a sleep study in over 20 years. She has never had a download. She says she has gained a considerable amount of weight since her initial sleep study. IMPRESSION: Chronic respiratory failure with volume overload secondary to a combination of diastolic dysfunction and probably inadequately treated sleep apnea. We will continue with BiPAP at night and p.r.n. We will continue with attempts at diuresis carefully monitoring her renal function. At some point in time she will need another sleep study. Prognosis is quite guarded. Job ID: [id number]
--- NOTE | 2019-04-30 09:57 | PRG ---
DATE OF SERVICE: 04/30/2019 SUBJECTIVE: A 69-year-old female being seen for acute kidney injury. The patient denies any nausea, vomiting or chest pain. PHYSICAL EXAMINATION: GENERAL: She is awake, alert. VITAL SIGNS: Pulse 75, breathing 16, blood pressure 112/78. HEENT: Head normocephalic and atraumatic. Eyes intact, no ulcers. Nose intact, no ulcers. Ears intact, no ulcers. Neck: Supple. No JVD. Chest: Symmetrical and clear. Cardiovascular: Shows S1 and S2, no rub, no murmur. Gastrointestinal: Abdomen is soft, bowel sounds positive. Extremities: Show no edema or ulcers. Skin: Shows no rash or petechiae. Musculoskeletal: Shows no joint swelling or stiffness. Genitourinary: Shows no Nicholas or CVA tenderness. Neurologic: Motor intact. Cranial nerves intact. LABORATORY DATA: Hemoglobin is 14, creatinine is 2.1. ASSESSMENT AND PLAN: 1. Acute kidney injury with chronic kidney disease, stage 4, stable. 2. Hypertension, stable. 3. Anemia, stable. 4. Medication based on glomerular filtration rate appropriate. 5. Congestive heart failure. 6. Continue Lasix. No urgent indication for dialysis. I would recommend renal imaging. Job ID: [id number]
--- NOTE | 2019-04-30 10:06 | ULT ---
US Renal Bilateral STANDARD History: Acute kidney injury Comparison: Abdomen ultrasound prior day Findings: Real-time grayscale and color evaluation of the kidneys was performed. Right kidney measures 10.7 x 5.7 x 6.2 cm and the left kidney measures 10.3 x 6.2 x 6.3 cm. No renal mass, hydronephrosis, or abnormal calcifications. The urinary bladder is decompressed with a Nicholas catheter. Impression: 1. Unremarkable evaluation of the kidneys. No evidence for obstructive uropathy. 2. Moderate ascites. 3. Possible papillary projections along the mesentery incompletely evaluated. CT abdomen pelvis may b e beneficial.
--- NOTE | 2019-04-30 10:12 | CON ---
DATE OF CONSULTATION: 04/29/2019 REASON FOR CONSULTATION: Elevated creatinine. HISTORY OF PRESENT ILLNESS: This is a very pleasant 69-year-old female, presented to the hospital with a baseline creatinine of 2.4 yesterday, which increased to 2.6 today, so I was consulted. Her prior baseline in February was 1.1. The patient has a history of coronary artery disease, who was hypertensive and bradycardic with worsening creatinine. The patient at this time denies any nausea, vomiting, or chest pain. PAST MEDICAL HISTORY: Significant for congestive heart failure, diabetes mellitus, coronary artery disease by cardiac catheterization, GERD, hypertension, supraventricular tachycardia, history of TB, hypothyroidism, history of H. pylori, history of diverticulosis, history of cholecystectomy, appendectomy, tonsillectomy, adenoidectomy, and tubal ligation. MEDICATIONS: Home medications list, reviewed. Hospital medications list, reviewed. ALLERGIES: REVIEWED. REVIEW OF SYSTEMS: Unobtainable. PHYSICAL EXAMINATION: GENERAL: The patient is resting. VITAL SIGNS: Afebrile, pulse 75, breathing at 16, blood pressure 124/77. HEENT: Head normocephalic and atraumatic. Eyes intact, no ulcers. Nose intact , no ulcers. Ears intact, no ulcers. NECK: Supple. No JVD. CHEST: Symmetrical and clear. CARDIOVASCULAR: Shows S1 and S2, no rub, no murmur. GASTROINTESTINAL: Abdomen is soft, bowel sounds positive. EXTREMITIES: Show 4+ no edema no ulcers. SKIN: Shows no rash or petechiae. MUSCULOSKELETAL: Shows no joint swelling or stiffness. GENITOURINARY: Shows no Nicholas or CVA tenderness. NEUROLOGIC: Motor intact. Cranial nerves intact. LABORATORY DATA: Reviewed. ASSESSMENT AND PLAN: 1. Acute kidney injury with chronic kidney disease, most likely due to CHF continue Lasix and add Metolazone as needed No indication for dialysis. 2. Hypertension stable. 3. Anemia, stable. 4. Medications based on GFR, appropriate. Job ID: [id number] [facility]
--- NOTE | 2019-04-30 12:17 | PDOC.HOSPP ---
- Subjective Encounter Date: 04/30/19 Encounter Time: 12:15 Subjective: Ms. Rodríguez was seen today in follow-up of respiratory failure. She still appears extremely weak. She notes feeling tired, but says her breathing has improved. - Objective Vital Signs & Weight: Vital Signs (12 hours) Temp Pulse Resp Pulse Ox 04/30/19 11:43 98.1 F 04/30/19 08:00 96 04/30/19 07:39 100 04/30/19 07:09 64 18 94 L 04/30/19 07:00 97.6 F 04/30/19 03:00 97.8 F 04/30/19 02:47 64 04/30/19 00:43 63 19 97 Weight Admit Weight 397 lb 0.84 oz Weight 394 lb 6.511 oz Most Recent Monitor Data Heart Rate from ECG 69 NIBP 91/52 NIBP BP-Mean 65 Respiration from ECG 23 SpO2 97 I&O: 04/29/19 04/30/19 05/01/19 06:59 06:59 06:59 Intake Total 50 1523 250 Output Total 45 0935 590 Balance 5 -4502 -340 Result Diagrams: 04/30/19 04:10 04/30/19 04:10 Additional Labs: Accuchecks 04/30/19 04/30/19 04/30/19 12:10 08:29 04:20 POC Glucose 146 H 134 H 128 H 04/30/19 04/29/19 04/29/19 00:03 20:39 16:13 POC Glucose 150 H 115 H 135 H 04/29/19 13:51 POC Glucose 136 H Hospitalist ROS - Medication Medications: Active Medications Generic Name Dose Route Start Last Admin Trade Name Freq PRN Reason Stop Dose Admin Albuterol/Ipratropium 3 ml 04/29/19 07:00 04/30/19 07:09 Duoneb NEB 3 ml [id number] SANNA Administration Aspirin 81 mg 04/29/19 09:00 04/30/19 08:19 Ecotrin PO 81 mg DAILY SANNA Administration Citalopram Hydrobromide 20 mg 04/29/19 09:00 04/30/19 08:20 Celexa PO 20 mg DAILY SANNA Administration Heparin Sodium (Porcine) 5,000 units 04/29/19 09:00 04/30/19 08:19 Heparin SC 5,000 units TID SANNA Administration Ceftriaxone Sodium 2 gm/ 100 mls @ 200 mls/hr 04/29/19 21:00 04/29/19 20:46 Sodium Chloride IVPB 100 mls QPM SANNA Administration Dopamine HCl/Dextrose 250 mls @ 16.884 mls/hr 04/29/19 04:00 04/30/19 05:36 Dopamine 400 Mg/D5w 250 Ml IVPB 250 mls INF SANNA Administration Protocol 2.5 MCG/KG/MIN Levothyroxine Sodium 125 mcg 04/29/19 06:00 04/30/19 05:36 Synthroid PO 125 mcg 0600 SANNA Administration Pantoprazole Sodium 40 mg 04/29/19 09:00 04/30/19 08:20 Protonix PO 40 mg DAILY SANNA Administration - Exam Eye: PERRL Heart: RRR, no murmur Respiratory: CTAB (except some rales at the bases) Gastrointestinal: soft, non-tender, non-distended, normal bowel sounds, no palpable masses Extremities: no cyanosis, 1+ LE edema Hosp A/P (1) Acute and chronic respiratory failure Code(s): J96.20 - ACUTE AND CHR RESP FAILURE, UNSP W HYPOXIA OR HYPERCAPNIA Status: Acute (2) Acute on chronic diastolic heart failure Code(s): I50.33 - ACUTE ON CHRONIC DIASTOLIC (CONGESTIVE) HEART FAILURE Status : Acute (3) Morbid obesity with BMI of 60.0-69.9, adult Code(s): E66.01 - MORBID (SEVERE) OBESITY DUE TO EXCESS CALORIES; Z68.44 - BODY MASS INDEX (BMI) 60.0-69.9, ADULT Status: Acute (4) Obesity hypoventilation syndrome Code(s): E66.2 - MORBID (SEVERE) OBESITY WITH ALVEOLAR HYPOVENTILATION Status : Acute (5) Diabetes mellitus type 2 in obese Code(s): E11.69 - TYPE 2 DIABETES MELLITUS WITH OTHER SPECIFIED COMPLICATION; E66.9 - OBESITY, UNSPECIFIED Status: Acute - Plan * Acute on chronic diastolic heart failure- continue to diurese as tolerated * Hypotension- ? etiology- she is still requiring dopamine drip intermittently * Continue empiric antibiotics for presumed sepsis * DM- blodd glucose is stable * LANETTE- improving- likely cardio-renal mediated * Severe sleep apnea- continue as PCCM- with BIPAP as needed
--- NOTE | 2019-04-30 12:25 | PDOC.HOSPP ---
- Subjective Encounter Date: 04/29/19 Encounter Time: 11:20 Subjective: Late Entry Ms. Rodríguez was seen today in follow-up of acute respiratory failure. She states she is feeling a little better. She is currently on BIPAP. - Objective Vital Signs & Weight: Vital Signs (12 hours) Temp Pulse Resp Pulse Ox 04/30/19 11:43 98.1 F 04/30/19 08:00 96 04/30/19 07:39 100 04/30/19 07:09 64 18 94 L 04/30/19 07:00 97.6 F 04/30/19 03:00 97.8 F 04/30/19 02:47 64 04/30/19 00:43 63 19 97 Weight Admit Weight 397 lb 0.84 oz Weight 394 lb 6.511 oz Most Recent Monitor Data Heart Rate from ECG 69 NIBP 91/52 NIBP BP-Mean 65 Respiration from ECG 23 SpO2 97 I&O: 04/29/19 04/30/19 05/01/19 06:59 06:59 06:59 Intake Total 50 1523 250 Output Total 45 4885 590 Balance 5 -1322 -340 Result Diagrams: 04/30/19 04:10 04/30/19 04:10 Additional Labs: Accuchecks 04/30/19 04/30/19 04/30/19 12:10 08:29 04:20 POC Glucose 146 H 134 H 128 H 04/30/19 04/29/19 04/29/19 00:03 20:39 16:13 POC Glucose 150 H 115 H 135 H 04/29/19 13:51 POC Glucose 136 H Hospitalist ROS - Medication Medications: Active Medications Generic Name Dose Route Start Last Admin Trade Name Freq PRN Reason Stop Dose Admin Albuterol/Ipratropium 3 ml 04/29/19 07:00 04/30/19 07:09 Duoneb NEB 3 ml [id number] SANAN Administration Aspirin 81 mg 04/29/19 09:00 04/30/19 08:19 Ecotrin PO 81 mg DAILY SANNA Administration Citalopram Hydrobromide 20 mg 04/29/19 09:00 04/30/19 08:20 Celexa PO 20 mg DAILY SANNA Administration Heparin Sodium (Porcine) 5,000 units 04/29/19 09:00 04/30/19 08:19 Heparin SC 5,000 units TID SANNA Administration Ceftriaxone Sodium 2 gm/ 100 mls @ 200 mls/hr 04/29/19 21:00 04/29/19 20:46 Sodium Chloride IVPB 100 mls QPM SANNA Administration Dopamine HCl/Dextrose 250 mls @ 16.884 mls/hr 04/29/19 04:00 04/30/19 05:36 Dopamine 400 Mg/D5w 250 Ml IVPB 250 mls INF SANNA Administration Protocol 2.5 MCG/KG/MIN Levothyroxine Sodium 125 mcg 04/29/19 06:00 04/30/19 05:36 Synthroid PO 125 mcg 0600 SANNA Administration Pantoprazole Sodium 40 mg 04/29/19 09:00 04/30/19 08:20 Protonix PO 40 mg DAILY SANNA Administration - Exam Eye: PERRL Heart: RRR, no murmur, no gallops, no rubs, normal peripheral pulses Respiratory: CTAB (+ wheezing and rhonch scattered) Gastrointestinal: soft, non-tender, non-distended, normal bowel sounds Extremities: 1+ LE edema Hosp A/P (1) Acute and chronic respiratory failure Code(s): J96.20 - ACUTE AND CHR RESP FAILURE, UNSP W HYPOXIA OR HYPERCAPNIA Status: Acute (2) Acute on chronic diastolic heart failure Code(s): I50.33 - ACUTE ON CHRONIC DIASTOLIC (CONGESTIVE) HEART FAILURE Status : Acute (3) Morbid obesity with BMI of 60.0-69.9, adult Code(s): E66.01 - MORBID (SEVERE) OBESITY DUE TO EXCESS CALORIES; Z68.44 - BODY MASS INDEX (BMI) 60.0-69.9, ADULT Status: Acute (4) Obesity hypoventilation syndrome Code(s): E66.2 - MORBID (SEVERE) OBESITY WITH ALVEOLAR HYPOVENTILATION Status : Acute (5) Diabetes mellitus type 2 in obese Code(s): E11.69 - TYPE 2 DIABETES MELLITUS WITH OTHER SPECIFIED COMPLICATION; E66.9 - OBESITY, UNSPECIFIED Status: Acute - Plan * Acute on chronic diastolic heart failure- Echo results noted- await further recommendations from Cardiology and Pulmonology * Hypotension- possibly related to sepsis- continue empiric antibiotics and await culture results * Continue empiric antibiotics for presumed sepsis * DM - stable continue SSI * LANETTE- will consult Nephrology to help with management * LAKESHA- BiPAP as needed
[2019-04-30] MEDS: cefTRIAXone\\ROCEPHIN 2 GM in Sodium Chloride 0.9% 100 ML IVPB SCH (20:17)
[2019-05-01 04:53] LABS: #Eosinphils 0.1 thou/uL (0.0-0.7); #Lymphocytes 1.5 thou/uL (1.20-3.40); #Neutrophils 7.3 thou/uL (1.40-6.50); %Basophils 0.1 % (0.0-1.0); %Eosinophils 0.9 % (0.0-10.0); %Lymphocytes 15.1 % (21.0-51.0); %Monocytes 9.7 % (0.0-10.0); %Neutrophils 74.2 % (42.0-75.0); Hemoglobin 13.2 g/dL (12.0-16.0); Mean Corpuscular HGB CONC 31.5 g/dL (32.0-36.0); Mean Corpuscular Hemoglobin 28.7 pg (27.0-31.0); Mean Corpuscular Volume 91.1 fL (78.0-98.0); Mean Platelet Volume 7.6 fL (7.4-10.4); Platelet Count 297 thou/uL (130-400); RBC Distribution Width 15.2 % (11.5-14.5); White Blood Cell (WBC) Count 9.8 thou/uL (4.8-10.8)
[2019-05-01 05:15] LABS: ALT (SGPT) 13 U/L (8-55); AST (SGOT) 24 U/L (5-34); Albumin 3.5 g/dL (3.4-4.8); Alkaline Phosphatase 93 U/L (40-110); Anion Gap 15 mmol/L (10-20); BUN (Urea Nitrogen) 81 mg/dL (9.8-20.1); Bilirubin, Total 0.4 mg/dL (0.2-1.2); Calc. Creatinine Clearance 80 mL/min (70-130); Calcium 8.9 mg/dL (7.8-10.44); Carbon Dioxide 24 mmol/L (23-31); Chloride 98 mmol/L (98-107); Estimated GFR-MDRD 26; Globulin 3.4 g/dL (2.4-3.5); Glucose 131 mg/dL (80-115); Potassium 3.8 mmol/L (3.5-5.1); Protein, Total 6.9 g/dL (6.0-8.3); Sodium 133 mmol/L (136-145)
[2019-05-01] MEDS: Levothyroxine Sodium 125 MCG TAB PO SCH (05:27)
[2019-05-01] MEDS ORDERED: Morphine 4 MG/ML VIAL ONE (05:42)
[2019-05-01] MEDS: Ondansetron PF 4 MG/2 ML Vial IVP PRN ×4 (05:45→20:40)
[2019-05-01] MEDS ORDERED: Morphine 4 MG/ML VIAL SLOW IVP SCH (05:45)
--- NOTE | 2019-05-01 08:30 | PDOC.CPN ---
- Subjective Date: 05/01/19 Time: 09:13 Interval history: The pt seen and examined. No overnight events. No cardiac complaints. - Objective Allergies/Adverse Reactions: Allergies Allergy/AdvReac Type Severity Reaction Status Date / Time chlorpromazine Allergy Verified 04/29/19 03:27 [From Thorazine] iodine Allergy Verified 04/29/19 03:27 Sulfa (Sulfonamide Allergy Verified 04/29/19 03:27 Antibiotics) Visit Medications: Current Medications Acetaminophen (Tylenol) 650 mg PO Q4H PRN PRN Reason: Headache/Fever/Mild Pain (1-3) Acetaminophen (Tylenol Elixir) 650 mg PO Q6H PRN PRN Reason: Fever > 101 or Mild Pain Albuterol/Ipratropium (Duoneb) 3 ml NEB [id number] [facility] Last Admin: 05/01/19 06:35 Dose: 3 ml Aspirin (Ecotrin) 81 mg PO DAILY [facility] Last Admin: 04/30/19 08:19 Dose: 81 mg Atropine Sulfate (Atropine) 0.5 mg IVP ASDIR PRN PRN Reason: Sustained Bradycardia HR < 30 Calcium Carbonate (Tums) 1,000 mg PO Q4H PRN PRN Reason: Heartburn or Indigestion Citalopram Hydrobromide (Celexa) 20 mg PO DAILY [facility] Last Admin: 04/30/19 08:20 Dose: 20 mg Dextrose/Water (Dextrose 50%) 25 gm SLOW IVP PRN PRN PRN Reason: Hypoglycemia Glucagon (Glucagon) 1 mg IM PRN PRN PRN Reason: Hypoglycemia Heparin Sodium (Porcine) (Heparin) 5,000 units SC TID [facility] Last Admin: 04/30/19 20:19 Dose: 5,000 units Dextrose/Water (D5w) 1,000 mls @ 0 mls/hr IV .Q0M PRN PRN Reason: Hypoglycemia Ceftriaxone Sodium 2 gm/ (Sodium Chloride) 100 mls @ 200 mls/hr IVPB QPM [facility] Last Admin: 04/30/19 20:17 Dose: 100 mls Dopamine HCl/Dextrose (Dopamine 400 Mg/D5w 250 Ml) 250 mls @ 16.884 mls/hr IVPB INF [facility]; Protocol Last Admin: 04/30/19 05:36 Dose: 250 mls Insulin Human Regular (Humulin R) 0 units SC .MILD SLIDING SCALE PRN PRN Reason: Mild Correctional Scale Insulin Human Regular (Humulin R) 0 units SC .BEDTIME SLIDING SC PRN PRN Reason: Bedtime Correctional Scale Levothyroxine Sodium (Synthroid) 125 mcg PO 0600 [facility] Last Admin: 05/01/19 05:27 Dose: 125 mcg Mineral Oil/White Petrolatum (Systane Nighttime Eye Ointment) 0 gm EA EYE PRN PRN PRN Reason: Dry Eyes Nitroglycerin (Nitrostat) 0.4 mg PO Q5MIN PRN PRN Reason: Chest Pain Ondansetron HCl (Zofran) 4 mg IVP Q6H PRN PRN Reason: Nausea/Vomiting Last Admin: 05/01/19 05:45 Dose: 4 mg Pantoprazole Sodium (Protonix) 40 mg PO DAILY [facility] Last Admin: 04/30/19 08:20 Dose: 40 mg Senna/Docusate Sodium (Senokot S) 2 tab PO BID PRN PRN Reason: Constipation Sodium Chloride (Flush - Normal Saline) 10 ml IVF PRN PRN PRN Reason: Saline Flush Sodium Chloride (Flush - Normal Saline) 10 ml IVF PRN PRN PRN Reason: Saline Flush Vital Signs & Weight: Vital Signs Temp Pulse Resp Pulse Ox 05/01/19 07:27 97 05/01/19 07:00 97.8 F 05/01/19 06:37 99 05/01/19 06:35 69 20 99 05/01/19 03:00 98.2 F 05/01/19 02:19 64 05/01/19 00:21 65 17 100 04/30/19 23:00 98 F 04/30/19 22:09 63 Admit Weight 397 lb 0.84 oz Weight 392 lb 13.82 oz - Physical Exam General: alert & oriented x3 HEENT: mucus membranes moist Neck: supple neck Cardiac: regular rate and rhythm, S1/S2 Lungs: decreased breath sounds Neuro: cranial nerve 2-12 intact Extremities: other: (4+ chronic BLE edema) - Labs Result Diagrams: 05/01/19 04:35 05/01/19 04:35 Troponin/CKMB CK-MB (CK-2) 1.9 ng/mL (0-6.6) 04/29/19 04:15 Troponin I 0.029 ng/mL (< 0.028) H 04/29/19 04:15 - Telemetry Sinus rhythms and dysrhythmias: sinus rhythm - Assessment/Plan Assessment/Plan: 1. Acute on Chronic Diastolic HF with Rt side HF with dilated RV/RA - unchanged ; not on BBlocker or SHADY/ARB due to hypotesive and bradycardia; 2. mild CAD, diag. 50%, with LHC in 2013 with no intervention. - on ASA; not on BBlocker or SHADY/ARB due to hypotesive and bradycardia; 3. HTN - stable 4. DM type 2 5. Severe LAKESHA - Cpap at HS 6. Morbid obesity - 7. LANETTE on CKD stage 4 - managed by industrial tech instructor 8. Hypothyroidism 9. Chronic BLE edema - 10. Chronic abd. discomfort. Hx. of diverticulosis. MAR reviewed Pt. seen and eval. by me. I agree with the A/P by the MEAT GRINDER. She has diastolic CHF and Right sided heart failure. She has elevated RV presures c/w pulmonary HTN. She needs to wear her CPAP mask. This is a diificult situation with this morbidly obese pt. Continue to attempt to diurese slowly. I will be out until next week. One of my partners will be following. [email or web address]
[2019-05-01] MEDS: Aspirin 81 mg Enteric Coated Tablet PO SCH (08:44)
[2019-05-01] MEDS: Citalopram 20 MG TAB PO SCH (08:44)
[2019-05-01] MEDS: Heparin 5,000 UNITS/ML VIAL SC SCH ×3 (08:45→20:44)
--- NOTE | 2019-05-01 11:03 | PDOC.HOSPP ---
- Subjective Encounter Date: 05/01/19 Encounter Time: 11:01 Subjective: Ms. Duran was seen today in follow-up of respiratory failure and hypotension. She says she "feels like dirt". She looks better, but still extremely weak in appearance. - Objective Vital Signs & Weight: Vital Signs (12 hours) Temp Pulse Resp Pulse Ox 05/01/19 07:27 97 05/01/19 07:00 97.8 F 05/01/19 06:37 99 05/01/19 06:35 69 20 99 05/01/19 03:00 98.2 F 05/01/19 02:19 64 05/01/19 00:21 65 17 100 Weight Admit Weight 397 lb 0.84 oz Weight 392 lb 13.82 oz Most Recent Monitor Data Heart Rate from ECG 74 NIBP 124/66 NIBP BP-Mean 85 Respiration from ECG 22 SpO2 95 I&O: 04/30/19 05/01/19 05/02/19 06:59 06:59 06:59 Intake Total 1523 1020 60 Output Total 2845 1555 175 Balance -1322 -535 -115 Result Diagrams: 05/01/19 04:35 05/01/19 04:35 Additional Labs: Accuchecks 04/30/19 04/30/19 04/30/19 20:20 16:28 12:10 POC Glucose 151 H 120 H 146 H Hospitalist ROS - Medication Medications: Active Medications Generic Name Dose Route Start Last Admin Trade Name Freq PRN Reason Stop Dose Admin Albuterol/Ipratropium 3 ml 04/29/19 07:00 05/01/19 06:35 Duoneb NEB 3 ml [id number] SANNA Administration Aspirin 81 mg 04/29/19 09:00 05/01/19 08:44 Ecotrin PO 81 mg DAILY SANNA Administration Citalopram Hydrobromide 20 mg 04/29/19 09:00 05/01/19 08:44 Celexa PO 20 mg DAILY SANNA Administration Heparin Sodium (Porcine) 5,000 units 04/29/19 09:00 05/01/19 08:45 Heparin SC 5,000 units TID SANNA Administration Ceftriaxone Sodium 2 gm/ 100 mls @ 200 mls/hr 04/29/19 21:00 04/30/19 20:17 Sodium Chloride IVPB 100 mls QPM SANNA Administration Dopamine HCl/Dextrose 250 mls @ 16.884 mls/hr 04/29/19 04:00 04/30/19 05:36 Dopamine 400 Mg/D5w 250 Ml IVPB 250 mls INF SANNA Administration Protocol 2.5 MCG/KG/MIN Levothyroxine Sodium 125 mcg 04/29/19 06:00 05/01/19 05:27 Synthroid PO 125 mcg 0600 SANNA Administration Ondansetron HCl 4 mg 05/01/19 05:33 05/01/19 05:45 Zofran IVP 4 mg Q6H PRN Administration Nausea/Vomiting Pantoprazole Sodium 40 mg 04/29/19 09:00 05/01/19 08:45 Protonix PO 40 mg DAILY SANNA Administration - Exam Eye: PERRL Heart: RRR, no murmur, no gallops, no rubs, normal peripheral pulses Respiratory: CTAB, no wheezes, no rales, no ronchi, normal chest expansion Gastrointestinal: soft, non-tender, non-distended, normal bowel sounds, no palpable masses, no hepatomegaly Extremities: no edema (her toes are purplish in color, but she has good capillary refill, and her D.P. pulses are palpable bilaterally, and her feet are warm) Skin: normal turgor Hosp A/P (1) Acute and chronic respiratory failure Code(s): J96.20 - ACUTE AND CHR RESP FAILURE, UNSP W HYPOXIA OR HYPERCAPNIA Status: Acute (2) Acute on chronic diastolic heart failure Code(s): I50.33 - ACUTE ON CHRONIC DIASTOLIC (CONGESTIVE) HEART FAILURE Status : Acute (3) Morbid obesity with BMI of 60.0-69.9, adult Code(s): E66.01 - MORBID (SEVERE) OBESITY DUE TO EXCESS CALORIES; Z68.44 - BODY MASS INDEX (BMI) 60.0-69.9, ADULT Status: Acute (4) Obesity hypoventilation syndrome Code(s): E66.2 - MORBID (SEVERE) OBESITY WITH ALVEOLAR HYPOVENTILATION Status : Acute (5) Diabetes mellitus type 2 in obese Code(s): E11.69 - TYPE 2 DIABETES MELLITUS WITH OTHER SPECIFIED COMPLICATION; E66.9 - OBESITY, UNSPECIFIED Status: Acute - Plan * Acute on chronic diastolic heart failure- Echo results noted- await further recommendations from Cardiology and Pulmonology * Hypotension- improved- she has been weaned off dopamine * Continue empiric antibiotics for presumed sepsis * Abdominal pain- ? etiology- agree with KUB further recommendations depending on results * DM - stable continue SSI * LANETTE-improving * LAKESHA- BiPAP as needed * Begin to mobilize
--- NOTE | 2019-05-01 14:14 | PRG ---
DATE OF SERVICE: 05/01/2019 SUBJECTIVE: A 69-year-old female, being seen for acute kidney injury. The patient denied any nausea, vomiting, or chest pain. PHYSICAL EXAMINATION: General: The patient is awake and alert. Vital Signs: Afebrile, pulse 75, breathing at 16, blood pressure 112/76. HEENT: Head normocephalic and atraumatic. Eyes intact, no ulcers. Nose intact, no ulcers. Ears intact, no ulcers. Neck: Supple. No JVD. Chest: Symmetrical and clear. Cardiovascular: Shows S1 and S2, no rub, no murmur. Gastrointestinal: Abdomen is soft, bowel sounds positive. Extremities: Show no edema or ulcers. Skin: Shows no rash or petechiae. Musculoskeletal: Shows no joint swelling or stiffness. Genitourinary: Shows no Nicholas or CVA tenderness. Neurologic: Motor intact. Cranial nerves intact. LABORATORY DATA: Labs show hemoglobin 13.2. Creatinine 1.9. ASSESSMENT AND PLAN: 1. Acute kidney injury, improved. 2. Chronic kidney disease stage 4, stable. 3. Hypertension, stable. 4. Renal ultrasound shows ascites and other abnormalities, which will be managed by the primary team. This was discussed with them. 5. Overall prognosis is poor. Job ID: [id number]
[2019-05-01] MEDS: Morphine 4 MG/ML VIAL SLOW IVP PRN (15:48)
[2019-05-01] MEDS: cefTRIAXone\\ROCEPHIN 2 GM in Sodium Chloride 0.9% 100 ML IVPB SCH (20:45)
[2019-05-02] MEDS: Levothyroxine Sodium 125 MCG TAB PO SCH (06:00)
[2019-05-02 09:05] LABS: #Eosinphils 0.1 thou/uL (0.0-0.7); #Lymphocytes 1.2 thou/uL (1.20-3.40); #Neutrophils 8.5 thou/uL (1.40-6.50); %Basophils 0.4 % (0.0-1.0); %Eosinophils 0.8 % (0.0-10.0); %Monocytes 9.1 % (0.0-10.0); %Neutrophils 78.7 % (42.0-75.0); Hemoglobin 14.1 g/dL (12.0-16.0); Mean Corpuscular HGB CONC 32.1 g/dL (32.0-36.0); Mean Corpuscular Hemoglobin 29.5 pg (27.0-31.0); Mean Corpuscular Volume 91.8 fL (78.0-98.0); Mean Platelet Volume 7.4 fL (7.4-10.4); Platelet Count 279 thou/uL (130-400); RBC Distribution Width 15.2 % (11.5-14.5); Red Blood Cell (RBC) Count 4.79 mill/uL (4.20-5.40); White Blood Cell (WBC) Count 10.7 thou/uL (4.8-10.8)
[2019-05-02 09:19] LABS: ALT (SGPT) 13 U/L (8-55); AST (SGOT) 21 U/L (5-34); Albumin 3.7 g/dL (3.4-4.8); Alkaline Phosphatase 94 U/L (40-110); Anion Gap 16 mmol/L (10-20); BUN (Urea Nitrogen) 69 mg/dL (9.8-20.1); Bilirubin, Total 0.4 mg/dL (0.2-1.2); Calc. Creatinine Clearance 109 mL/min (70-130); Calcium 9.4 mg/dL (7.8-10.44); Carbon Dioxide 24 mmol/L (23-31); Chloride 101 mmol/L (98-107); Estimated GFR-MDRD 38; Globulin 3.7 g/dL (2.4-3.5); Glucose 127 mg/dL (80-115); Protein, Total 7.4 g/dL (6.0-8.3); Sodium 137 mmol/L (136-145)
[2019-05-02] MEDS: Heparin 5,000 UNITS/ML VIAL SC SCH ×3 (09:35→22:10)
[2019-05-02] MEDS: Aspirin 81 mg Enteric Coated Tablet PO SCH (09:35)
[2019-05-02] MEDS: Citalopram 20 MG TAB PO SCH (09:35)
--- NOTE | 2019-05-02 10:50 | PRG ---
DATE OF SERVICE: 05/01/2019 SUBJECTIVE: Radha Duran says she is feeling a little bit better. Intake and output . Surprisingly, tolerating this diuresis. OBJECTIVE: LUNGS: Clear. HEART: Regular rate and rhythm. ABDOMEN: Still distended. She complains of a full feeling of discomfort deep down inside. Her last bowel movement was at the end of last week. A KUB was ordered, but it is extremely difficult to get her downstairs for her film, it probably would not add much to her management canceled. LABORATORY DATA: Her sodium is 133, potassium , chloride 90, bicarb , white count IMPRESSION: Acute on chronic respiratory failure secondary to diastolic heart failure and probably apnea. She needs BiPAP whenever she sleeps. I am betting that she is 50 to 60 pounds volume overloaded. She is unable to walk and likely will be bedridden indefinitely. I suspect her abdominal complaints will improve with diuresis. Given her current clinical condition, she is not a candidate for a laparotomy, even if we find something life-threatening. She would not survive any type of abdominal procedure in my opinion. We will continue with diuresis and monitoring of her renal function and continue with BiPAP. Job ID: [id number]
--- NOTE | 2019-05-02 11:45 | PRG ---
DATE OF SERVICE: 05/02/2019 SUBJECTIVE: Radha Duran says she is feeling better. OBJECTIVE: VITAL SIGNS: She is afebrile, heart rates in the 70s, blood pressure 132/99, respiratory rate 16, and oximetry is 100%. GENERAL: She still has edema up to her abdominal wall. LUNGS: Clear. HEART: Regular rhythm. ABDOMEN: Nontender. EXTREMITIES: Essentially unchanged. Intake and outputs negative 1164. White count 10.7, hemoglobin 14.1, and platelets 279,000. Creatinine is down to 1.39. ASSESSMENT AND PLAN: I would wonder if she did not have some degree of an abdominal compartment syndrome with her extreme volume overload that is now improving with diuresis. Overall, she appears to be stable. Obviously, she will be in the hospital for quite some time. She will continue to wear BiPAP at night. Probably, she probably can move out of Critical Care Unit within the next 24 hours. Job ID: [id number]
--- NOTE | 2019-05-02 11:55 | PDOC.HOSPP ---
- Subjective Encounter Date: 05/02/19 Encounter Time: 11:54 Subjective: Ms. Rodríguez was seen today in follow-up of respiratory failure. She says she feels like dirt. She notes continued shortness of breath, and she is tired and hurting. - Objective Vital Signs & Weight: Vital Signs (12 hours) Temp Pulse Resp Pulse Ox 05/02/19 09:00 97.9 F 05/02/19 06:54 78 05/02/19 06:53 78 16 99 05/02/19 04:00 97.4 F L 05/02/19 00:17 79 05/02/19 00:00 97.4 F L Weight Admit Weight 397 lb 0.84 oz Weight 392 lb 3.237 oz Most Recent Monitor Data Heart Rate from ECG 77 NIBP 140/78 NIBP BP-Mean 98 Respiration from ECG 17 SpO2 98 I&O: 05/01/19 05/02/19 05/03/19 06:59 06:59 06:59 Intake Total 1020 496 Output Total 3541 1660 785 [facility] -[phone] -785 Result Diagrams: 05/02/19 08:50 05/02/19 08:50 Additional Labs: Accuchecks 05/02/19 05/02/19 05/01/19 11:37 06:01 20:52 POC Glucose 109 114 H 137 H 05/01/19 16:15 POC Glucose 136 H Hospitalist ROS - Medication Medications: Active Medications Generic Name Dose Route Start Last Admin Trade Name Freq PRN Reason Stop Dose Admin Albuterol/Ipratropium 3 ml 04/29/19 07:00 05/02/19 06:53 Duoneb NEB 3 ml [id number] SANNA Administration Aspirin 81 mg 04/29/19 09:00 05/02/19 09:35 Ecotrin PO 81 mg DAILY SANNA Administration Citalopram Hydrobromide 20 mg 04/29/19 09:00 05/02/19 09:35 Celexa PO 20 mg DAILY SANNA Administration Heparin Sodium (Porcine) 5,000 units 04/29/19 09:00 05/02/19 09:35 Heparin SC 5,000 units TID SANNA Administration Ceftriaxone Sodium 2 gm/ 100 mls @ 200 mls/hr 04/29/19 21:00 05/01/19 20:45 Sodium Chloride IVPB 100 mls QPM SANNA Administration Dopamine HCl/Dextrose 250 mls @ 16.884 mls/hr 04/29/19 04:00 04/30/19 05:36 Dopamine 400 Mg/D5w 250 Ml IVPB 250 mls INF SANNA Administration Protocol 2.5 MCG/KG/MIN Levothyroxine Sodium 125 mcg 04/29/19 06:00 05/02/19 06:00 Synthroid PO 125 mcg 0600 SANNA Administration Morphine Sulfate 4 mg 05/01/19 15:40 05/01/19 15:48 Morphine SLOW IVP 4 mg Q2H PRN Administration Pain Ondansetron HCl 4 mg 05/01/19 12:16 05/01/19 20:40 Zofran IVP 4 mg Q4H PRN Administration Nausea/Vomiting Pantoprazole Sodium 40 mg 04/29/19 09:00 05/02/19 09:36 Protonix PO 40 mg DAILY SANNA Administration - Exam Eye: PERRL Heart: RRR, no murmur, no gallops, normal peripheral pulses Respiratory: CTAB, no wheezes, no rales, no ronchi, normal chest expansion, no tachypnea Gastrointestinal: soft, distended (tympanic to percussion) Extremities: no clubbing, 1+ LE edema (+ venous stasis changes, feet are less cyanotic) Hosp A/P (1) Acute and chronic respiratory failure Code(s): J96.20 - ACUTE AND CHR RESP FAILURE, UNSP W HYPOXIA OR HYPERCAPNIA Status: Acute (2) Acute on chronic diastolic heart failure Code(s): I50.33 - ACUTE ON CHRONIC DIASTOLIC (CONGESTIVE) HEART FAILURE Status : Acute (3) Morbid obesity with BMI of 60.0-69.9, adult Code(s): E66.01 - MORBID (SEVERE) OBESITY DUE TO EXCESS CALORIES; Z68.44 - BODY MASS INDEX (BMI) 60.0-69.9, ADULT Status: Acute (4) Obesity hypoventilation syndrome Code(s): E66.2 - MORBID (SEVERE) OBESITY WITH ALVEOLAR HYPOVENTILATION Status : Acute (5) Diabetes mellitus type 2 in obese Code(s): E11.69 - TYPE 2 DIABETES MELLITUS WITH OTHER SPECIFIED COMPLICATION; E66.9 - OBESITY, UNSPECIFIED Status: Acute - Plan * Acute on chronic diastolic heart failure- discussed with Dr. Zee- there is not much more to offer from a Cardiology stand point * LANETTE- improving * Hypotension- improved * Continue empiric antibiotics for presumed sepsis * Abdominal pain-likely from passive congestion from right heart failure * DM - stable continue SSI * LANETTE-improving * LAKESHA- BiPAP as needed * She has life threatening Obesity when has resulted in severe Obesity hypoventilation and right heart failure. This has been evident for severeal years, as the records from [facility] indicate, which were reviewed. This was discussed with the patient * Mobilize as much as possible. * Prognosis is guarded. * Will discuss her condition with the patient's daughter Virginia. I have received permission from the patient to discuss her clinical condition.
--- NOTE | 2019-05-02 13:08 | PRG ---
DATE OF SERVICE: 05/02/2019 SUBJECTIVE: A 69-year-old female, being seen for acute kidney injury. The patient denied any nausea, vomiting, or chest pain. PHYSICAL EXAMINATION: General: The patient is awake and alert. Vital Signs: Afebrile, pulse 75, breathing at 16, blood pressure 140/78. HEENT: Head normocephalic and atraumatic. Eyes intact, no ulcers. Nose intact, no ulcers. Ears intact, no ulcers. Neck: Supple. No JVD. Chest: Symmetrical and clear. Cardiovascular: Shows S1 and S2, no rub, no murmur. Gastrointestinal: Abdomen is soft, bowel sounds positive. Extremities: The patient has 4+ edema. Skin: Shows no rash or petechiae. Musculoskeletal: Shows no joint swelling or stiffness. Genitourinary: Shows no Nicholas or CVA tenderness. Neurologic: Motor intact. Cranial nerves intact. LABORATORY DATA: Labs show creatinine 1.3. ASSESSMENT AND PLAN: 1. Acute kidney injury, resolved. 2. Hypertension, stable. 3. Anemia, stable. 4. Medication based on GFR appropriate. Continue diuresis. The patient has had multiorgan failure. My recommendation would be palliative care, but this has to be discussed with the primary team. All the above findings were discussed with the patient. All questions were answered. I will sign off. Please reconsult as needed. Job ID: [id number]
--- NOTE | 2019-05-02 13:53 | PRG ---
DATE OF SERVICE: 05/02/2019 SUBJECTIVE: Ms. Duran states she is feeling better. Less shortness of breath, although still is complaining of abdominal discomfort. OBJECTIVE: VITAL SIGNS: Blood pressure 152/103, pulse 80, and respirations 20. LUNGS: Clear to auscultation. HEART: Regular rate and rhythm. ABDOMEN: Obese and distended. EXTREMITIES: 3+ pitting edema. PERTINENT LABORATORY DATA: White blood cell count 10.7, hemoglobin 14.1. Creatinine 1.39, down from 1.91. IMPRESSION: 1. Diastolic heart failure. 2. Mild coronary artery disease. 3. Obstructive sleep apnea. 4. Moderate pulmonary hypertension. 5. Morbid obesity. RECOMMENDATIONS: Ms. Duran's symptoms may all be related to passive congestion. There is concern for compliance with CPAP. We will discuss further with the patient. This can certainly be the etiology to her abdominal distention in addition to obesity, right-sided failure, and RV enlargement. Her bradycardia has improved. This is likely related to a beta trista therapy. Continue aspirin and may reinstitute low-dose beta-trista therapy, which has shown some benefit in a diastolic dysfunction. We will also need to continue BiPAP. Job ID: [id number]
[2019-05-02] MEDS: Ondansetron PF 4 MG/2 ML Vial IVP PRN ×2 (17:10→22:10)
[2019-05-02] MEDS: cefTRIAXone\\ROCEPHIN 2 GM in Sodium Chloride 0.9% 100 ML IVPB SCH (22:10)
--- NOTE | 2019-05-02 22:32 | PDOC.FMACP ---
Advance Care Planning - Problem (1) Acute and chronic respiratory failure Status: Acute Code(s): J96.20 - ACUTE AND CHR RESP FAILURE, UNSP W HYPOXIA OR HYPERCAPNIA (2) Acute on chronic diastolic heart failure Status: Acute Code(s): I50.33 - ACUTE ON CHRONIC DIASTOLIC (CONGESTIVE) HEART FAILURE (3) Morbid obesity with BMI of 60.0-69.9, adult Status: Acute Code(s): E66.01 - MORBID (SEVERE) OBESITY DUE TO EXCESS CALORIES ; Z68.44 - BODY MASS INDEX (BMI) 60.0-69.9, ADULT (4) Obesity hypoventilation syndrome Status: Acute Code(s): E66.2 - MORBID (SEVERE) OBESITY WITH ALVEOLAR HYPOVENTILATION (5) Diabetes mellitus type 2 in obese Status: Acute Code(s): E11.69 - TYPE 2 DIABETES MELLITUS WITH OTHER SPECIFIED COMPLICATION; E66.9 - OBESITY, UNSPECIFIED - Note Participants: patient Summary: Advanced Care Planning was discussed. The diagnosis, prognosis and goals of care were discussed. Appropriate forms and documentation to accomplish the goals of care were discussed. All questions were answered. I spoke with Ms. Duran about her current condition and chronic ongoing medical problems. Specifically related to the severe Obesity hypoventilation and resultant right heart failure. She tells me she has been sick for " a long time, and at home she is practically bed bound, and usually goes to the bathroom and back, and otherwise is in bed all day. She says family members bring her " supplies, and food". She says she is ok with this situation as long as she is able to manage in the bathroom on her own. She is not sure what her goals of care are going forward, and would like to talk to her daughter abot this. She says she knows she is " really sick" and was concerned that she may not make it out of the hospital. She is not sure what she wants regarding resuscitation. Will therefore leave her full code. I will attempt to call her daughter soon. Time Spent (mins): 40
[2019-05-03] MEDS: Morphine 4 MG/ML VIAL SLOW IVP PRN ×2 (00:13→21:32)
[2019-05-03] MEDS: Levothyroxine Sodium 125 MCG TAB PO SCH (06:10)
[2019-05-03] MEDS: Heparin 5,000 UNITS/ML VIAL SC SCH ×3 (08:41→21:34)
[2019-05-03] MEDS: Citalopram 20 MG TAB PO SCH (08:41)
[2019-05-03] MEDS: Aspirin 81 mg Enteric Coated Tablet PO SCH (08:41)
[2019-05-03 09:23] LABS: #Basophils 0.1 thou/uL (0.0-0.2); #Eosinphils 0.1 thou/uL (0.0-0.7); #Lymphocytes 1.3 thou/uL (1.20-3.40); #Monocytes 0.9 thou/uL (0.11-0.59); #Neutrophils 7.4 thou/uL (1.40-6.50); %Basophils 0.5 % (0.0-1.0); %Eosinophils 1.3 % (0.0-10.0); %Lymphocytes 13.7 % (21.0-51.0); %Monocytes 9.3 % (0.0-10.0); %Neutrophils 75.2 % (42.0-75.0); Hemoglobin 12.9 g/dL (12.0-16.0); Mean Corpuscular HGB CONC 31.9 g/dL (32.0-36.0); Mean Corpuscular Hemoglobin 29.6 pg (27.0-31.0); Mean Corpuscular Volume 92.9 fL (78.0-98.0); Mean Platelet Volume 7.4 fL (7.4-10.4); Platelet Count 249 thou/uL (130-400); RBC Distribution Width 15.2 % (11.5-14.5); Red Blood Cell (RBC) Count 4.35 mill/uL (4.20-5.40); White Blood Cell (WBC) Count 9.8 thou/uL (4.8-10.8)
[2019-05-03 09:28] LABS: Anion Gap 11 mmol/L (10-20); BUN (Urea Nitrogen) 47 mg/dL (9.8-20.1); Calc. Creatinine Clearance 176 mL/min (70-130); Calcium 8.5 mg/dL (7.8-10.44); Carbon Dioxide 24 mmol/L (23-31); Chloride 107 mmol/L (98-107); Estimated GFR-MDRD 66; Glucose 164 mg/dL (80-115); Potassium 3.4 mmol/L (3.5-5.1); Sodium 139 mmol/L (136-145)
[2019-05-03] MEDS: Insulin Regular 300 UNITS/3 ML VIAL SC PRN (11:16)
--- NOTE | 2019-05-03 12:57 | PDOC.HOSPP ---
- Subjective Encounter Date: 05/03/19 Encounter Time: 12:55 Subjective: lise Rodríguez was seen today in follow-up of respiratory failure. She does not have any new complaints. She is feeling a bit better. She is sitting in the Neuro-chair. - Objective Vital Signs & Weight: Vital Signs (12 hours) Temp Pulse Resp Pulse Ox 05/03/19 11:00 97.9 F 05/03/19 08:00 97 05/03/19 07:00 97.6 F 05/03/19 05:51 80 16 98 Weight Admit Weight 397 lb 0.84 oz Weight 392 lb 3.237 oz Most Recent Monitor Data Heart Rate from ECG 90 NIBP 144/93 NIBP BP-Mean 110 Respiration from ECG 20 SpO2 100 I&O: 05/02/19 05/03/19 05/04/19 06:59 06:59 06:59 Intake Total 496 340 720 Output Total 1660 1735 500 Balance -1164 -1395 220 Result Diagrams: 05/03/19 09:04 05/03/19 09:04 Additional Labs: Accuchecks 05/03/19 05/03/19 05/02/19 11:14 06:16 16:39 POC Glucose 175 H 118 H 134 H Hospitalist ROS - Medication Medications: Active Medications Generic Name Dose Route Start Last Admin Trade Name Rodriguez PRN Reason Stop Dose Admin Albuterol/Ipratropium 3 ml 04/29/19 07:00 05/03/19 05:51 Duoneb NEB 3 ml [id number] SANNA Administration Aspirin 81 mg 04/29/19 09:00 05/03/19 08:41 Ecotrin PO 81 mg DAILY SANNA Administration Citalopram Hydrobromide 20 mg 04/29/19 09:00 05/03/19 08:41 Celexa PO 20 mg DAILY SANNA Administration Heparin Sodium (Porcine) 5,000 units 04/29/19 09:00 05/03/19 08:41 Heparin SC 5,000 units TID SANNA Administration Ceftriaxone Sodium 2 gm/ 100 mls @ 200 mls/hr 04/29/19 21:00 05/02/19 22:10 Sodium Chloride IVPB 100 mls QPM SANNA Administration Dopamine HCl/Dextrose 250 mls @ 16.884 mls/hr 04/29/19 04:00 04/30/19 05:36 Dopamine 400 Mg/D5w 250 Ml IVPB 250 mls INF SANNA Administration Protocol 2.5 MCG/KG/MIN Insulin Human Regular 0 units 04/29/19 02:10 05/03/19 11:16 Humulin R SC 2 unit .MILD SLIDING SCALE PRN Administration Mild Correctional Scale Levothyroxine Sodium 125 mcg 04/29/19 06:00 05/03/19 06:10 Synthroid PO 125 mcg 0600 SANNA Administration Morphine Sulfate 4 mg 05/01/19 15:40 05/03/19 00:13 Morphine SLOW IVP 4 mg Q2H PRN Administration Pain Ondansetron HCl 4 mg 05/01/19 12:16 05/02/19 22:10 Zofran IVP 4 mg Q4H PRN Administration Nausea/Vomiting Pantoprazole Sodium 40 mg 04/29/19 09:00 05/03/19 08:41 Protonix PO 40 mg DAILY SANNA Administration - Exam Eye: PERRL Heart: RRR, no murmur, no gallops, no rubs, normal peripheral pulses Respiratory: CTAB (+ rales at the bases) Gastrointestinal: soft, non-tender, non-distended, normal bowel sounds, no palpable masses, no hepatomegaly Extremities: no cyanosis (+ mild erythema), no clubbing, 1+ LE edema Hosp A/P (1) Acute and chronic respiratory failure Code(s): J96.20 - ACUTE AND CHR RESP FAILURE, UNSP W HYPOXIA OR HYPERCAPNIA Status: Acute (2) Acute on chronic diastolic heart failure Code(s): I50.33 - ACUTE ON CHRONIC DIASTOLIC (CONGESTIVE) HEART FAILURE Status : Acute (3) Morbid obesity with BMI of 60.0-69.9, adult Code(s): E66.01 - MORBID (SEVERE) OBESITY DUE TO EXCESS CALORIES; Z68.44 - BODY MASS INDEX (BMI) 60.0-69.9, ADULT Status: Acute (4) Obesity hypoventilation syndrome Code(s): E66.2 - MORBID (SEVERE) OBESITY WITH ALVEOLAR HYPOVENTILATION Status : Acute (5) Diabetes mellitus type 2 in obese Code(s): E11.69 - TYPE 2 DIABETES MELLITUS WITH OTHER SPECIFIED COMPLICATION; E66.9 - OBESITY, UNSPECIFIED Status: Acute - Plan * Acute on chronic diastolic heart failure- better compensated * LANETTE- resolved * Hypotension- improved * Blood and urine cultures are negative- will discontinue Rocephin and start Omnicef * Abdominal pain-likely from passive congestion from right heart failure * DM - stable continue SSI * LAKESHA- BiPAP as needed * She has life threatening Obesity when has resulted in severe Obesity hypoventilation and right heart failure- chronic * Mobilize as much as possible. * Prognosis is guarded. * She is stable for transition out of the ICU- will move to the CU
--- NOTE | 2019-05-03 19:05 | PRG ---
DATE OF SERVICE: 05/03/2019 OBJECTIVE: VITAL SIGNS: Ms. Duran has heart rate of 108, respiratory rate 20, oximetry is 99 on 3 L, blood pressure 141/69. Intake and output are negative 1164. LUNGS: Clear. HEART: Regular rhythm. ABDOMEN: Less uncomfortable by her report. She still has significant abdominal wall and lower extremity edema. LABORATORY DATA: White count 9.8, hemoglobin 12.9, platelets 249. Sodium 139, potassium 3.4, chloride 107, bicarb 24, BUN 47, and creatinine 0.86. IMPRESSION: 1. Diastolic heart failure. 2. Acute on chronic kidney disease with return of her creatinine to normal. 3. Sleep apnea. 4. Pulmonary hypertension secondary to a combination of the above. I believe she is stable to move out of critical care unit to a telemetry bed. She should continue to wear BiPAP at night for sleep apnea. Job ID: [id number]
[2019-05-03] MEDS: Cefdinir 300 MG CAP PO SCH (21:34)
[2019-05-03] MEDS: Carvedilol 3.125 MG TAB PO SCH (21:34)
[2019-05-04 04:32] LABS: Anion Gap 13 mmol/L (10-20); BUN (Urea Nitrogen) 46 mg/dL (9.8-20.1); Calc. Creatinine Clearance 154 mL/min (70-130); Calcium 9.3 mg/dL (7.8-10.44); Carbon Dioxide 27 mmol/L (23-31); Chloride 101 mmol/L (98-107); Estimated GFR-MDRD 56; Glucose 136 mg/dL (80-115); Sodium 137 mmol/L (136-145)
[2019-05-04] MEDS: Levothyroxine Sodium 125 MCG TAB PO SCH (05:53)
--- NOTE | 2019-05-04 08:35 | PRG ---
DATE OF SERVICE: 05/03/2019 SUBJECTIVE: Ms. Duran is doing better. No current complaints. She continues to be in sinus rhythm. OBJECTIVE: VITAL SIGNS: Blood pressure 146/86, pulse 86, respirations 20. LUNGS: Clear to auscultation. HEART: Regular rate and rhythm. ABDOMEN: Obese. EXTREMITIES: 2+ pitting edema. PERTINENT LABORATORY DATA: Hemoglobin 12.9. Creatinine 0.86. IMPRESSION: 1. Diastolic dysfunction. 2. Mild coronary artery disease. 3. Severe obstructive sleep apnea. 4. Pulmonary hypertension. 5. Morbid obesity. RECOMMENDATIONS: No new changes. Continue aspirin 81 q.a.m. in addition to antibiotic therapy. We will add low-dose beta-trista therapy when tolerated. Job ID: [id number]
[2019-05-04] MEDS: Heparin 5,000 UNITS/ML VIAL SC SCH ×3 (09:10→21:56)
[2019-05-04] MEDS: Carvedilol 3.125 MG TAB PO SCH ×2 (09:11→21:56)
[2019-05-04] MEDS: Citalopram 20 MG TAB PO SCH (09:11)
[2019-05-04] MEDS: Cefdinir 300 MG CAP PO SCH ×2 (09:11→21:56)
[2019-05-04] MEDS: Aspirin 81 mg Enteric Coated Tablet PO SCH (09:11)
--- NOTE | 2019-05-04 13:02 | PDOC.HOSPP ---
- Subjective Encounter Date: 05/04/19 Encounter Time: 09:30 Subjective: awake, responds well to verbal stimuli says she ate her breakfast was wearing bipap last night, is on nasal canula now - Objective Vital Signs & Weight: Vital Signs (12 hours) Temp Pulse Resp Pulse Ox 05/04/19 12:44 109 H 16 99 05/04/19 06:52 84 13 100 05/04/19 04:00 98 F Weight Admit Weight 397 lb 0.84 oz Weight 394 lb 13.566 oz Most Recent Monitor Data Heart Rate from ECG 90 NIBP 123/80 NIBP BP-Mean 94 Respiration from ECG 19 SpO2 95 I&O: 05/03/19 05/04/19 05/05/19 06:59 06:59 06:59 Intake Total 340 2259 Output Total 1735 1310 Balance -1395 949 Result Diagrams: 05/03/19 09:04 05/04/19 04:00 Additional Labs: Accuchecks 05/04/19 05/04/19 05/03/19 12:20 05:54 21:35 POC Glucose 118 H 129 H 129 H 05/03/19 15:40 POC Glucose 131 H Hospitalist ROS - Medication Medications: Active Medications Generic Name Dose Route Start Last Admin Trade Name Freq PRN Reason Stop Dose Admin Acetaminophen 650 mg 04/29/19 02:07 05/03/19 18:09 Tylenol PO 650 mg Q4H PRN Administration Headache/Fever/Mild Pain (1-3) Albuterol/Ipratropium 3 ml 04/29/19 07:00 05/04/19 12:44 Duoneb NEB 3 ml [id number] SANNA Administration Aspirin 81 mg 04/29/19 09:00 05/04/19 09:11 Ecotrin PO 81 mg DAILY SANNA Administration Carvedilol 3.125 mg 05/03/19 21:00 05/04/19 09:11 Coreg PO 3.125 mg BID SANNA Administration Cefdinir 300 mg 05/03/19 21:00 05/04/19 09:11 Omnicef PO 300 mg BID SANNA Administration Citalopram Hydrobromide 20 mg 04/29/19 09:00 05/04/19 09:11 Celexa PO 20 mg DAILY SANNA Administration Heparin Sodium (Porcine) 5,000 units 04/29/19 09:00 05/04/19 09:10 Heparin SC 5,000 units TID SANNA Administration Insulin Human Regular 0 units 04/29/19 02:10 05/03/19 11:16 Humulin R SC 2 unit .MILD SLIDING SCALE PRN Administration Mild Correctional Scale Levothyroxine Sodium 125 mcg 04/29/19 06:00 05/04/19 05:53 Synthroid PO 125 mcg 0600 SANNA Administration Morphine Sulfate 4 mg 05/01/19 15:40 05/03/19 21:32 Morphine SLOW IVP 4 mg Q2H PRN Administration Pain Ondansetron HCl 4 mg 05/01/19 12:16 05/02/19 22:10 Zofran IVP 4 mg Q4H PRN Administration Nausea/Vomiting Pantoprazole Sodium 40 mg 04/29/19 09:00 05/04/19 09:11 Protonix PO 40 mg DAILY SANNA Administration - Exam General Appearance: awake alert Eye: PERRL, anicteric sclera ENT: no oropharyngeal lesions, dry oral mucosa Neck: supple, symmetric Heart: RRR, no murmur Respiratory: no wheezes, no rales Gastrointestinal: soft, non-tender, non-distended, normal bowel sounds Extremities: no cyanosis, 1+ LE edema Neurological: cranial nerve grossly intact, no focal deficits Psychiatric: A&O x 3 Hosp A/P (1) Acute respiratory failure with hypoxia Code(s): J96.01 - ACUTE RESPIRATORY FAILURE WITH HYPOXIA Status: Acute (2) LANETTE (acute kidney injury) Code(s): N17.9 - ACUTE KIDNEY FAILURE, UNSPECIFIED Status: Acute (3) Acute on chronic diastolic heart failure Code(s): I50.33 - ACUTE ON CHRONIC DIASTOLIC (CONGESTIVE) HEART FAILURE Status : Acute (4) Hypothyroidism Code(s): E03.9 - HYPOTHYROIDISM, UNSPECIFIED Status: Chronic Qualifiers: Hypothyroidism type: unspecified Qualified Code(s): E03.9 - Hypothyroidism , unspecified (5) Diabetes mellitus type 2 in obese Code(s): E11.69 - TYPE 2 DIABETES MELLITUS WITH OTHER SPECIFIED COMPLICATION; E66.9 - OBESITY, UNSPECIFIED Status: Chronic (6) Morbid obesity with BMI of 60.0-69.9, adult Code(s): E66.01 - MORBID (SEVERE) OBESITY DUE TO EXCESS CALORIES; Z68.44 - BODY MASS INDEX (BMI) 60.0-69.9, ADULT Status: Chronic (7) Obesity hypoventilation syndrome Code(s): E66.2 - MORBID (SEVERE) OBESITY WITH ALVEOLAR HYPOVENTILATION Status : Suspected - Plan is on bipap at bedtime is recovering well counselled to mobilize more with PT is on nebs, asp, omnicef, coreg, celexa and synthroid. may tx to medical if she can bring her home cpap to hospital hemostable
--- NOTE | 2019-05-04 17:26 | PRG ---
DATE OF SERVICE: 05/04/2019 OBJECTIVE: Ms. Duran is afebrile, heart rate is in the 90s, blood pressure 115/92, and respiratory rate 18. LUNGS: Clear. HEART: Regular rhythm. ABDOMEN: Soft and nontender. EXTREMITIES: Without asymmetry. She still has significant edema. She says her abdomen discomfort for all practical purposes is gone. LABORATORY DATA: White count 9.8 and hemoglobin 12.9 yesterday. No lab today other than blood glucoses and electrolytes, which are normal. Creatinine is 0.98. Intake and output are surprisingly positive 949. Not sure where all the positive intake came from. IMPRESSION AND PLAN: 1. Congestive heart failure and sleep apnea. 2. ? Abdominal compartment syndrome with ascites and significant abdominal wall edema. Her renal functions returned to normal and her abdominal discomfort is gone. She is stable to move out of Critical Care. Job ID: [id number]
[2019-05-04] MEDS: Ondansetron PF 4 MG/2 ML Vial IVP PRN (20:21)
[2019-05-04] MEDS ORDERED: Sodium Chloride 0.9% 250 ML IVPB SCH (23:45)
[2019-05-05] MEDS: Morphine 4 MG/ML VIAL SLOW IVP PRN ×4 (00:46→20:19)
[2019-05-05] MEDS: Levothyroxine Sodium 125 MCG TAB PO SCH (06:18)
[2019-05-05] MEDS: Citalopram 20 MG TAB PO SCH (08:17)
[2019-05-05] MEDS: Cefdinir 300 MG CAP PO SCH ×2 (08:17→20:18)
[2019-05-05] MEDS: Aspirin 81 mg Enteric Coated Tablet PO SCH (08:17)
[2019-05-05] MEDS: Carvedilol 3.125 MG TAB PO SCH ×2 (08:17→20:18)
[2019-05-05] MEDS: Heparin 5,000 UNITS/ML VIAL SC SCH ×3 (08:18→20:19)
--- NOTE | 2019-05-05 12:46 | PDOC.HOSPP ---
- Subjective Encounter Date: 05/05/19 Encounter Time: 07:20 Subjective: no complaints says she slept well, no chest pain - Objective Vital Signs & Weight: Vital Signs (12 hours) Temp Pulse Resp Pulse Ox 05/05/19 12:20 98 19 99 05/05/19 11:24 97.0 F L 05/05/19 08:00 98 05/05/19 07:27 96.6 F L 05/05/19 07:18 112 H 17 100 Weight Admit Weight 397 lb 0.84 oz Weight 401 lb 12.8 oz Most Recent Monitor Data Heart Rate from ECG 88 NIBP 111/75 NIBP BP-Mean 87 Respiration from ECG 30 SpO2 100 I&O: 05/04/19 05/05/19 05/06/19 06:59 06:59 06:59 Intake Total 2259 1330 Output Total 1310 974 Balance 949 356 Result Diagrams: 05/03/19 09:04 05/04/19 04:00 Additional Labs: Accuchecks 05/05/19 05/05/19 05/04/19 10:34 06:24 21:15 POC Glucose 196 H 131 H 154 H 05/04/19 17:51 POC Glucose 133 H Hospitalist ROS - Medication Medications: Active Medications Generic Name Dose Route Start Last Admin Trade Name Freq PRN Reason Stop Dose Admin Acetaminophen 650 mg 04/29/19 02:07 05/03/19 18:09 Tylenol PO 650 mg Q4H PRN Administration Headache/Fever/Mild Pain (1-3) Albuterol/Ipratropium 3 ml 04/29/19 07:00 05/05/19 12:20 Duoneb NEB 3 ml [id number] SANNA Administration Aspirin 81 mg 04/29/19 09:00 05/05/19 08:17 Ecotrin PO 81 mg DAILY SANNA Administration Carvedilol 3.125 mg 05/03/19 21:00 05/05/19 08:17 Coreg PO 3.125 mg BID SANNA Administration Cefdinir 300 mg 05/03/19 21:00 05/05/19 08:17 Omnicef PO 300 mg BID SANNA Administration Citalopram Hydrobromide 20 mg 04/29/19 09:00 05/05/19 08:17 Celexa PO 20 mg DAILY SANNA Administration Heparin Sodium (Porcine) 5,000 units 04/29/19 09:00 05/05/19 08:18 Heparin SC 5,000 units TID SANNA Administration Insulin Human Regular 0 units 04/29/19 02:10 05/03/19 11:16 Humulin R SC 2 unit .MILD SLIDING SCALE PRN Administration Mild Correctional Scale Levothyroxine Sodium 125 mcg 04/29/19 06:00 05/05/19 06:18 Synthroid PO 125 mcg 0600 SANNA Administration Morphine Sulfate 4 mg 05/01/19 15:40 05/05/19 00:46 Morphine SLOW IVP 4 mg Q2H PRN Administration Pain Ondansetron HCl 4 mg 05/01/19 12:16 05/04/19 20:21 Zofran IVP 4 mg Q4H PRN Administration Nausea/Vomiting Pantoprazole Sodium 40 mg 04/29/19 09:00 05/05/19 08:17 Protonix PO 40 mg DAILY SANNA Administration - Exam General Appearance: awake alert Eye: PERRL, anicteric sclera ENT: no oropharyngeal lesions, moist mucosa Neck: supple, no JVD Heart: RRR, no murmur Respiratory: no wheezes, no rales, rhonchi Gastrointestinal: soft, non-tender, non-distended, normal bowel sounds Extremities: no cyanosis, 1+ LE edema Neurological: cranial nerve grossly intact, no focal deficits Psychiatric: A&O x 3 Hosp A/P (1) Acute respiratory failure with hypoxia Code(s): J96.01 - ACUTE RESPIRATORY FAILURE WITH HYPOXIA Status: Acute (2) LANETTE (acute kidney injury) Code(s): N17.9 - ACUTE KIDNEY FAILURE, UNSPECIFIED Status: Acute (3) Acute on chronic diastolic heart failure Code(s): I50.33 - ACUTE ON CHRONIC DIASTOLIC (CONGESTIVE) HEART FAILURE Status : Acute (4) Hypothyroidism Code(s): E03.9 - HYPOTHYROIDISM, UNSPECIFIED Status: Chronic Qualifiers: Hypothyroidism type: unspecified Qualified Code(s): E03.9 - Hypothyroidism , unspecified (5) Diabetes mellitus type 2 in obese Code(s): E11.69 - TYPE 2 DIABETES MELLITUS WITH OTHER SPECIFIED COMPLICATION; E66.9 - OBESITY, UNSPECIFIED Status: Chronic (6) Morbid obesity with BMI of 60.0-69.9, adult Code(s): E66.01 - MORBID (SEVERE) OBESITY DUE TO EXCESS CALORIES; Z68.44 - BODY MASS INDEX (BMI) 60.0-69.9, ADULT Status: Chronic (7) Obesity hypoventilation syndrome Code(s): E66.2 - MORBID (SEVERE) OBESITY WITH ALVEOLAR HYPOVENTILATION Status : Suspected - Plan is on bipap at bedtime is recovering well counselled to mobilize more with PT is on nebs, asp, omnicef, coreg, celexa and synthroid. may tx to medical if she can bring her home cpap to hospital might need placement is she did not mobilize with PT, cm consultation for dc planning she needs diuretics, sbp is stable, will check labs for today hemostable
[2019-05-05] MEDS: Ondansetron PF 4 MG/2 ML Vial IVP PRN (13:22)
--- NOTE | 2019-05-05 14:41 | PRG ---
DATE OF SERVICE: 05/05/2019 SUBJECTIVE: Radha Duran says she has some vague abdominal discomfort today. It is nowhere near as bad as the discomfort she had on presentation. OBJECTIVE: VITAL SIGNS: Heart rate is currently in 80s, blood pressure 130/87, respiratory rates in the teens. LUNGS: Clear. HEART: Regular rhythm. ABDOMEN: Soft. LABORATORY DATA: Intake and output were positive 356. She has been in positive fluid balance last 2 days. No lab done today. IMPRESSION: 1. Congestive heart failure. 2. Sleep apnea. 3. Acute on chronic kidney disease. 4. ? abdominal compartment syndrome. She probably will need to be fluid restricted if she continues with a positive fluid balance. It looks like her furosemide is not on her medication administration list, so I will reorder her Lasix. Job ID: [id number]
[2019-05-05] MEDS ORDERED: Furosemide 100 MG/10 ML VIAL SLOW IVP SCH (14:45)
[2019-05-06 04:27] LABS: #Basophils 0.1 thou/uL (0.0-0.2); #Eosinphils 0.2 thou/uL (0.0-0.7); #Monocytes 0.9 thou/uL (0.11-0.59); %Basophils 0.9 % (0.0-1.0); %Eosinophils 2.7 % (0.0-10.0); %Lymphocytes 21.2 % (21.0-51.0); %Monocytes 9.7 % (0.0-10.0); %Neutrophils 65.5 % (42.0-75.0); Mean Corpuscular HGB CONC 30.9 g/dL (32.0-36.0); Mean Corpuscular Volume 93.7 fL (78.0-98.0); Mean Platelet Volume 7.9 fL (7.4-10.4); Platelet Count 266 thou/uL (130-400); RBC Distribution Width 15.2 % (11.5-14.5); Red Blood Cell (RBC) Count 4.49 mill/uL (4.20-5.40); White Blood Cell (WBC) Count 9.2 thou/uL (4.8-10.8)
[2019-05-06 04:50] LABS: ALT (SGPT) 10 U/L (8-55); AST (SGOT) 15 U/L (5-34); Albumin 3.3 g/dL (3.4-4.8); Alkaline Phosphatase 95 U/L (40-110); Anion Gap 13 mmol/L (10-20); BUN (Urea Nitrogen) 48 mg/dL (9.8-20.1); Bilirubin, Total 0.5 mg/dL (0.2-1.2); Calc. Creatinine Clearance 132 mL/min (70-130); Calcium 9.1 mg/dL (7.8-10.44); Carbon Dioxide 26 mmol/L (23-31); Chloride 101 mmol/L (98-107); Estimated GFR-MDRD 46; Globulin 3.7 g/dL (2.4-3.5); Glucose 136 mg/dL (80-115); Potassium 4.2 mmol/L (3.5-5.1); Sodium 136 mmol/L (136-145)
[2019-05-06] MEDS: Levothyroxine Sodium 125 MCG TAB PO SCH (06:09)
--- NOTE | 2019-05-06 08:11 | PDOC.CPN ---
- Subjective Date: 05/06/19 Time: 08:13 Interval history: The pt seen and examined. No overnight events. No cardiac complaints - Objective Allergies/Adverse Reactions: Allergies Allergy/AdvReac Type Severity Reaction Status Date / Time chlorpromazine Allergy Verified 04/29/19 03:27 [From Thorazine] iodine Allergy Verified 04/29/19 03:27 Sulfa (Sulfonamide Allergy Verified 04/29/19 03:27 Antibiotics) Visit Medications: Current Medications Acetaminophen (Tylenol) 650 mg PO Q4H PRN PRN Reason: Headache/Fever/Mild Pain (1-3) Last Admin: 05/03/19 18:09 Dose: 650 mg Acetaminophen (Tylenol Elixir) 650 mg PO Q6H PRN PRN Reason: Fever > 101 or Mild Pain Albuterol/Ipratropium (Duoneb) 3 ml NEB [id number] PENDING SALE TO [facility] Last Admin: 05/06/19 07:26 Dose: 3 ml Aspirin (Ecotrin) 81 mg PO DAILY [facility] Last Admin: 05/05/19 08:17 Dose: 81 mg Atropine Sulfate (Atropine) 0.5 mg IVP ASDIR PRN PRN Reason: Sustained Bradycardia HR < 30 Calcium Carbonate (Tums) 1,000 mg PO Q4H PRN PRN Reason: Heartburn or Indigestion Carvedilol (Coreg) 3.125 mg PO BID [facility] Last Admin: 05/05/19 20:18 Dose: 3.125 mg Cefdinir (Omnicef) 300 mg PO BID [facility] Last Admin: 05/05/19 20:18 Dose: 300 mg Citalopram Hydrobromide (Celexa) 20 mg PO DAILY [facility] Last Admin: 05/05/19 08:17 Dose: 20 mg Dextrose/Water (Dextrose 50%) 25 gm SLOW IVP PRN PRN PRN Reason: Hypoglycemia Furosemide (Lasix) 60 mg SLOW IVP DAILY [facility] Glucagon (Glucagon) 1 mg IM PRN PRN PRN Reason: Hypoglycemia Heparin Sodium (Porcine) (Heparin) 5,000 units SC TID [facility] Last Admin: 05/05/19 20:19 Dose: 5,000 units Dextrose/Water (D5w) 1,000 mls @ 0 mls/hr IV .Q0M PRN PRN Reason: Hypoglycemia Insulin Human Regular (Humulin R) 0 units SC .MILD SLIDING SCALE PRN PRN Reason: Mild Correctional Scale Last Admin: 05/03/19 11:16 Dose: 2 unit Insulin Human Regular (Humulin R) 0 units SC .BEDTIME SLIDING SC PRN PRN Reason: Bedtime Correctional Scale Levothyroxine Sodium (Synthroid) 125 mcg PO 0600 [facility] Last Admin: 05/06/19 06:09 Dose: 125 mcg Mineral Oil/White Petrolatum (Systane Nighttime Eye Ointment) 0 gm EA EYE PRN PRN PRN Reason: Dry Eyes Morphine Sulfate (Morphine) 4 mg SLOW IVP Q2H PRN PRN Reason: Pain Last Admin: 05/05/19 20:19 Dose: 4 mg Nitroglycerin (Nitrostat) 0.4 mg PO Q5MIN PRN PRN Reason: Chest Pain Ondansetron HCl (Zofran) 4 mg IVP Q4H PRN PRN Reason: Nausea/Vomiting Last Admin: 05/05/19 13:22 Dose: 4 mg Pantoprazole Sodium (Protonix) 40 mg PO DAILY [facility] Last Admin: 05/05/19 08:17 Dose: 40 mg Senna/Docusate Sodium (Senokot S) 2 tab PO BID PRN PRN Reason: Constipation Sodium Chloride (Flush - Normal Saline) 10 ml IVF PRN PRN PRN Reason: Saline Flush Sodium Chloride (Flush - Normal Saline) 10 ml IVF PRN PRN PRN Reason: Saline Flush Vital Signs & Weight: Vital Signs Temp Pulse Resp Pulse Ox 05/06/19 07:31 97 05/06/19 07:29 97 05/06/19 07:28 96.7 F L 05/06/19 07:26 79 22 H 97 05/06/19 03:31 96.5 F L 05/06/19 01:16 75 97 05/06/19 01:15 100 05/05/19 23:31 96.9 F L 05/05/19 20:40 98 05/05/19 20:39 87 17 98 Admit Weight 397 lb 0.84 oz Weight 397 lb 9.6 oz - Physical Exam General: alert & oriented x3 HEENT: mucus membranes moist Neck: supple neck Cardiac: regular rate and rhythm, S1/S2 Lungs: decreased breath sounds Neuro: cranial nerve 2-12 intact Extremities: other: (2-3+ non pitting BLE edema) - Labs Result Diagrams: 05/06/19 04:15 05/06/19 04:15 Troponin/CKMB CK-MB (CK-2) 1.9 ng/mL (0-6.6) 04/29/19 04:15 Troponin I 0.029 ng/mL (< 0.028) H 04/29/19 04:15 - Telemetry Sinus rhythms and dysrhythmias: sinus rhythm - Assessment/Plan Assessment/Plan: 1. Acute on Chronic Diastolic HF with Rt side HF with dilated RV/RA - stable; on Coreg 3.125mg BID and Lasix 60mg IV qd; 2. mild CAD, diag. 50%, with LHC in 2013 with no intervention. - on ASA and Coreg;Her LDL in 02/2019 was 60 without any Statin 3. HTN - stable 4. DM type 2 5. Severe LAKESHA - Cpap at HS 6. Morbid obesity - strongly recommend weight management 7. LANETTE on CKD stage 4 - managed by cafeteria supervisor 8. Hypothyroidism 9. Chronic BLE edema - 10. Chronic abd. discomfort. Hx. of diverticulosis. 11. Intermittent tachycardia, at times this appears to be atrial fib. at other times is sinus tach. MAR reviewed Pt. was seen and eval. by me. I agree with the A/P by the STATE TESTED NURSING ASSISTANT. Pt. is extremely deconditioned and assists little with movement. Chest clear. RRR at this time. Mild lower extremity edema. Continue present management. Difficult situation with right sided failure and pulm. HTN.
--- NOTE | 2019-05-06 10:05 | PRG ---
DATE OF SERVICE: 05/06/2019 SUBJECTIVE: Radha Duran is intermittently still having rapid atrial fibrillation. OBJECTIVE: VITAL SIGNS: She is afebrile, heart rates in the 70s, respiratory rates in the 20s, oximetry is 97%. Intake and output, positive 354. She is back on her Lasix. She needs 1000 mL of fluid restriction. She took in a liter and a half water yesterday by mouth. We will continue to follow. Job ID: [id number]
[2019-05-06] MEDS: Citalopram 20 MG TAB PO SCH (10:39)
[2019-05-06] MEDS: Furosemide 100 MG/10 ML VIAL SLOW IVP SCH (10:40)
[2019-05-06] MEDS: Aspirin 81 mg Enteric Coated Tablet PO SCH (10:40)
[2019-05-06] MEDS: Cefdinir 300 MG CAP PO SCH ×2 (10:40→20:59)
[2019-05-06] MEDS: Heparin 5,000 UNITS/ML VIAL SC SCH ×3 (10:40→20:59)
[2019-05-06] MEDS: Carvedilol 3.125 MG TAB PO SCH ×2 (10:40→20:59)
--- NOTE | 2019-05-06 12:49 | PDOC.HOSPP ---
- Subjective Encounter Date: 05/06/19 Encounter Time: 09:40 Subjective: no sob or palp feels better - Objective Vital Signs & Weight: Vital Signs (12 hours) Temp Pulse Resp Pulse Ox 05/06/19 11:50 96.4 F L 05/06/19 07:31 97 05/06/19 07:29 97 05/06/19 07:28 96.7 F L 05/06/19 07:26 79 22 H 97 05/06/19 03:31 96.5 F L 05/06/19 01:16 75 97 05/06/19 01:15 100 Weight Admit Weight 397 lb 0.84 oz Weight 397 lb 9.6 oz Most Recent Monitor Data Heart Rate from ECG 142 NIBP 162/102 NIBP BP-Mean 122 Respiration from ECG 18 SpO2 96 I&O: 05/05/19 05/06/19 05/07/19 06:59 06:59 06:59 Intake Total 1330 1504 Output Total 974 1150 Balance 356 354 Result Diagrams: 05/06/19 04:15 05/06/19 04:15 Additional Labs: Accuchecks 05/06/19 05/06/19 05/05/19 10:56 05:40 20:39 POC Glucose 195 H 143 H 158 H 05/05/19 16:44 POC Glucose 162 H Hospitalist ROS - Medication Medications: Active Medications Generic Name Dose Route Start Last Admin Trade Name Freq PRN Reason Stop Dose Admin Acetaminophen 650 mg 04/29/19 02:07 05/03/19 18:09 Tylenol PO 650 mg Q4H PRN Administration Headache/Fever/Mild Pain (1-3) Albuterol/Ipratropium 3 ml 04/29/19 07:00 05/06/19 07:26 Duoneb NEB 3 ml [id number] SANNA Administration Aspirin 81 mg 04/29/19 09:00 05/06/19 10:40 Ecotrin PO 81 mg DAILY SANNA Administration Carvedilol 3.125 mg 05/03/19 21:00 05/06/19 10:40 Coreg PO 3.125 mg BID SANNA Administration Cefdinir 300 mg 05/03/19 21:00 05/06/19 10:40 Omnicef PO 300 mg BID SANNA Administration Citalopram Hydrobromide 20 mg 04/29/19 09:00 05/06/19 10:39 Celexa PO 20 mg DAILY SANNA Administration Furosemide 60 mg 05/06/19 09:00 05/06/19 10:40 Lasix SLOW IVP 60 mg DAILY SANNA Administration Heparin Sodium (Porcine) 5,000 units 04/29/19 09:00 05/06/19 10:40 Heparin SC 5,000 units TID SANNA Administration Insulin Human Regular 0 units 04/29/19 02:10 05/03/19 11:16 Humulin R SC 2 unit .MILD SLIDING SCALE PRN Administration Mild Correctional Scale Levothyroxine Sodium 125 mcg 04/29/19 06:00 05/06/19 06:09 Synthroid PO 125 mcg 0600 SANNA Administration Morphine Sulfate 4 mg 05/01/19 15:40 05/05/19 20:19 Morphine SLOW IVP 4 mg Q2H PRN Administration Pain Ondansetron HCl 4 mg 05/01/19 12:16 05/05/19 13:22 Zofran IVP 4 mg Q4H PRN Administration Nausea/Vomiting Pantoprazole Sodium 40 mg 04/29/19 09:00 05/06/19 10:39 Protonix PO 40 mg DAILY SANNA Administration - Exam General Appearance: awake alert Eye: PERRL, anicteric sclera ENT: no oropharyngeal lesions, moist mucosa Neck: supple, no JVD Heart: RRR, no murmur Respiratory: no wheezes, no rales, rhonchi Gastrointestinal: soft, normal bowel sounds, no guarding, no rigidity Extremities: no cyanosis, 1+ LE edema Neurological: cranial nerve grossly intact, no focal deficits Psychiatric: A&O x 3 Hosp A/P (1) Acute respiratory failure with hypoxia Code(s): J96.01 - ACUTE RESPIRATORY FAILURE WITH HYPOXIA Status: Acute (2) LANETTE (acute kidney injury) Code(s): N17.9 - ACUTE KIDNEY FAILURE, UNSPECIFIED Status: Acute (3) Acute on chronic diastolic heart failure Code(s): I50.33 - ACUTE ON CHRONIC DIASTOLIC (CONGESTIVE) HEART FAILURE Status : Acute (4) Hypothyroidism Code(s): E03.9 - HYPOTHYROIDISM, UNSPECIFIED Status: Chronic Qualifiers: Hypothyroidism type: unspecified Qualified Code(s): E03.9 - Hypothyroidism , unspecified (5) Diabetes mellitus type 2 in obese Code(s): E11.69 - TYPE 2 DIABETES MELLITUS WITH OTHER SPECIFIED COMPLICATION; E66.9 - OBESITY, UNSPECIFIED Status: Chronic (6) Morbid obesity with BMI of 60.0-69.9, adult Code(s): E66.01 - MORBID (SEVERE) OBESITY DUE TO EXCESS CALORIES; Z68.44 - BODY MASS INDEX (BMI) 60.0-69.9, ADULT Status: Chronic (7) Obesity hypoventilation syndrome Code(s): E66.2 - MORBID (SEVERE) OBESITY WITH ALVEOLAR HYPOVENTILATION Status : Suspected - Plan is on bipap at bedtime, fluid restriction is recovering well, has a bmi of 62, her weight has remained constant around 397 lbs. counselled to mobilize more with PT is on nebs, asp, omnicef, lasix, coreg, celexa and synthroid. may tx to medical if she can bring her home cpap to hospital d/w CM, pt has agreed to go to swing bed in [place]. hemostable
[2019-05-06 12:54] VITALS: BMI 62.2
[2019-05-06] MEDS: Morphine 4 MG/ML VIAL SLOW IVP PRN ×2 (15:21→21:00)
[2019-05-07] MEDS: Levothyroxine Sodium 125 MCG TAB PO SCH (06:03)
[2019-05-07] MEDS: Heparin 5,000 UNITS/ML VIAL SC SCH ×3 (08:14→21:40)
[2019-05-07] MEDS: Aspirin 81 mg Enteric Coated Tablet PO SCH (08:14)
[2019-05-07] MEDS: Carvedilol 3.125 MG TAB PO SCH ×2 (08:14→21:40)
[2019-05-07] MEDS: Furosemide 100 MG/10 ML VIAL SLOW IVP SCH (08:14)
[2019-05-07] MEDS: Cefdinir 300 MG CAP PO SCH ×2 (08:14→21:39)
[2019-05-07] MEDS: Citalopram 20 MG TAB PO SCH (08:14)
[2019-05-07 08:32] LABS: Anion Gap 16 mmol/L (10-20); BUN (Urea Nitrogen) 50 mg/dL (9.8-20.1); Calc. Creatinine Clearance 109 mL/min (70-130); Calcium 9.3 mg/dL (7.8-10.44); Carbon Dioxide 20 mmol/L (23-31); Chloride 102 mmol/L (98-107); Estimated GFR-MDRD 37; Glucose 149 mg/dL (80-115); Potassium 4.6 mmol/L (3.5-5.1); Sodium 133 mmol/L (136-145)
--- NOTE | 2019-05-07 10:21 | PDOC.CPN ---
- Subjective Date: 05/07/19 Time: 10:27 Interval history: The pt seen and examined. No overnight events. No cardiac complaints. She feels more "clear" her mind today - Objective Allergies/Adverse Reactions: Allergies Allergy/AdvReac Type Severity Reaction Status Date / Time chlorpromazine Allergy Verified 04/29/19 03:27 [From Thorazine] iodine Allergy Verified 04/29/19 03:27 Sulfa (Sulfonamide Allergy Verified 04/29/19 03:27 Antibiotics) Visit Medications: Current Medications Acetaminophen (Tylenol) 650 mg PO Q4H PRN PRN Reason: Headache/Fever/Mild Pain (1-3) Last Admin: 05/03/19 18:09 Dose: 650 mg Acetaminophen (Tylenol Elixir) 650 mg PO Q6H PRN PRN Reason: Fever > 101 or Mild Pain Albuterol/Ipratropium (Duoneb) 3 ml NEB [id number] [facility] Last Admin: 05/07/19 06:28 Dose: 3 ml Aspirin (Ecotrin) 81 mg PO DAILY [facility] Last Admin: 05/07/19 08:14 Dose: 81 mg Atropine Sulfate (Atropine) 0.5 mg IVP ASDIR PRN PRN Reason: Sustained Bradycardia HR < 30 Calcium Carbonate (Tums) 1,000 mg PO Q4H PRN PRN Reason: Heartburn or Indigestion Carvedilol (Coreg) 3.125 mg PO BID [facility] Last Admin: 05/07/19 08:14 Dose: 3.125 mg Cefdinir (Omnicef) 300 mg PO BID [facility] Last Admin: 05/07/19 08:14 Dose: 300 mg Citalopram Hydrobromide (Celexa) 20 mg PO DAILY [facility] Last Admin: 05/07/19 08:14 Dose: 20 mg Dextrose/Water (Dextrose 50%) 25 gm SLOW IVP PRN PRN PRN Reason: Hypoglycemia Furosemide (Lasix) 60 mg SLOW IVP DAILY [facility] Last Admin: 05/07/19 08:14 Dose: 60 mg Glucagon (Glucagon) 1 mg IM PRN PRN PRN Reason: Hypoglycemia Heparin Sodium (Porcine) (Heparin) 5,000 units SC TID [facility] Last Admin: 05/07/19 08:14 Dose: 5,000 units Dextrose/Water (D5w) 1,000 mls @ 0 mls/hr IV .Q0M PRN PRN Reason: Hypoglycemia Insulin Human Regular (Humulin R) 0 units SC .MILD SLIDING SCALE PRN PRN Reason: Mild Correctional Scale Last Admin: 05/03/19 11:16 Dose: 2 unit Insulin Human Regular (Humulin R) 0 units SC .BEDTIME SLIDING SC PRN PRN Reason: Bedtime Correctional Scale Levothyroxine Sodium (Synthroid) 125 mcg PO 0600 [facility] Last Admin: 05/07/19 06:03 Dose: 125 mcg Mineral Oil/White Petrolatum (Systane Nighttime Eye Ointment) 0 gm EA EYE PRN PRN PRN Reason: Dry Eyes Morphine Sulfate (Morphine) 4 mg SLOW IVP Q2H PRN PRN Reason: Pain Last Admin: 05/06/19 21:00 Dose: 4 mg Nitroglycerin (Nitrostat) 0.4 mg PO Q5MIN PRN PRN Reason: Chest Pain Ondansetron HCl (Zofran) 4 mg IVP Q4H PRN PRN Reason: Nausea/Vomiting Last Admin: 05/05/19 13:22 Dose: 4 mg Pantoprazole Sodium (Protonix) 40 mg PO DAILY [facility] Last Admin: 05/07/19 08:14 Dose: 40 mg Senna/Docusate Sodium (Senokot S) 2 tab PO BID PRN PRN Reason: Constipation Sodium Chloride (Flush - Normal Saline) 10 ml IVF PRN PRN PRN Reason: Saline Flush Last Admin: 05/06/19 21:06 Dose: 10 ml Sodium Chloride (Flush - Normal Saline) 10 ml IVF PRN PRN PRN Reason: Saline Flush Vital Signs & Weight: Vital Signs Temp Pulse Resp Pulse Ox 05/07/19 08:00 98 05/07/19 07:41 96.7 F L 05/07/19 06:31 92 L 05/07/19 06:28 73 13 92 L 05/07/19 04:00 97.0 F L 05/06/19 23:33 90 16 99 05/06/19 23:17 96.5 F L Admit Weight 397 lb 0.84 oz Weight 400 lb 6 oz - Physical Exam General: alert & oriented x3 HEENT: mucus membranes moist Neck: supple neck Cardiac: regular rate and rhythm, S1/S2 Lungs: decreased breath sounds Neuro: cranial nerve 2-12 intact - Labs Result Diagrams: 05/06/19 04:15 05/07/19 07:54 Troponin/CKMB CK-MB (CK-2) 1.9 ng/mL (0-6.6) 04/29/19 04:15 Troponin I 0.029 ng/mL (< 0.028) H 04/29/19 04:15 - Telemetry Sinus rhythms and dysrhythmias: other (SR, ST, and Afib) - Assessment/Plan Assessment/Plan: 1. Acute on Chronic Diastolic HF with Rt side HF with dilated RV/RA and pulm. HTN - stable; on Coreg 3.125mg BID and Lasix 60mg IV qd; 2. Mild CAD and s/p LHC in 2013 with 50% stenosis in diag. with no intervention. - on ASA and Coreg; Her LDL in 02/2019 was 60 without any Statin 3. HTN - stable 4. DM type 2 5. Severe LAKESHA - Cpap at HS 6. LANETTE on CKD stage 4 - managed by rubber goods tester water 7. Hypothyroidism 8. Chronic BLE edema - 9 Chronic abd. discomfort. Hx. of diverticulosis. 10. Intermittent tachycardia, at times this appears to be atrial fib. at other times is sinus tach. 11. Morbid obesity - strongly recommend weight management MAR reviewed .Pt. seen and eval. by me. I agree with the A/P by the POKER SUPERVISOR.Hopefully she can be transferred to rehab soon. Chest : clear. RRR. No significant edema but large extremities.
--- NOTE | 2019-05-07 11:35 | EKG ---
Test Reason : C/P Blood Pressure : / mmHG Vent. Rate : 081 BPM Atrial Rate : 081 BPM P-R Int : 188 ms QRS Dur : 128 ms QT Int : 424 ms P-R-T Axes : 027 144 025 degrees QTc Int : 492 ms Sinus rhythm with Premature supraventricular complexes Right bundle branch block Abnormal ECG When compared with ECG of 04-MAY-2019 23:23, (Unconfirmed) Fusion complexes are no longer Present Confirmed by PAKO ZENG, SMontserrat ([id number]) on 05/07/2019 11:35:02 AM Referred By: HO Confirmed By:DR. Berhane MIN MD
--- NOTE | 2019-05-07 12:43 | PDOC.HOSPP ---
- Subjective Encounter Date: 05/07/19 Encounter Time: 12:00 Subjective: no sob or chest pain has stood with PT and took 2-3 steps this am - Objective Vital Signs & Weight: Vital Signs (12 hours) Temp Pulse Resp Pulse Ox 05/07/19 11:58 97.2 F L 05/07/19 08:00 98 05/07/19 07:41 96.7 F L 05/07/19 06:31 92 L 05/07/19 06:28 73 13 92 L 05/07/19 04:00 97.0 F L Weight Admit Weight 397 lb 0.84 oz Weight 400 lb 6 oz Most Recent Monitor Data Heart Rate from ECG 147 NIBP 126/104 NIBP BP-Mean 111 Respiration from ECG 20 SpO2 84 I&O: 05/06/19 05/07/19 05/08/19 06:59 06:59 06:59 Intake Total 1504 1190 Output Total 1150 925 Balance 354 265 Result Diagrams: 05/06/19 04:15 05/07/19 07:54 Additional Labs: Accuchecks 05/07/19 05/07/19 05/06/19 11:13 06:06 21:04 POC Glucose 133 H 153 H 177 H 05/06/19 16:51 POC Glucose 173 H Hospitalist ROS - Medication Medications: Active Medications Generic Name Dose Route Start Last Admin Trade Name Freq PRN Reason Stop Dose Admin Acetaminophen 650 mg 04/29/19 02:07 05/03/19 18:09 Tylenol PO 650 mg Q4H PRN Administration Headache/Fever/Mild Pain (1-3) Albuterol/Ipratropium 3 ml 04/29/19 07:00 05/07/19 06:28 Duoneb NEB 3 ml [id number] SANNA Administration Aspirin 81 mg 04/29/19 09:00 05/07/19 08:14 Ecotrin PO 81 mg DAILY SANNA Administration Carvedilol 3.125 mg 05/03/19 21:00 05/07/19 08:14 Coreg PO 3.125 mg BID SANNA Administration Cefdinir 300 mg 05/03/19 21:00 05/07/19 08:14 Omnicef PO 300 mg BID SANNA Administration Citalopram Hydrobromide 20 mg 04/29/19 09:00 05/07/19 08:14 Celexa PO 20 mg DAILY SANNA Administration Furosemide 60 mg 05/06/19 09:00 05/07/19 08:14 Lasix SLOW IVP 60 mg DAILY SANNA Administration Heparin Sodium (Porcine) 5,000 units 04/29/19 09:00 05/07/19 08:14 Heparin SC 5,000 units TID SANNA Administration Insulin Human Regular 0 units 04/29/19 02:10 05/03/19 11:16 Humulin R SC 2 unit .MILD SLIDING SCALE PRN Administration Mild Correctional Scale Levothyroxine Sodium 125 mcg 04/29/19 06:00 05/07/19 06:03 Synthroid PO 125 mcg 0600 SANNA Administration Morphine Sulfate 4 mg 05/01/19 15:40 05/06/19 21:00 Morphine SLOW IVP 4 mg Q2H PRN Administration Pain Ondansetron HCl 4 mg 05/01/19 12:16 05/05/19 13:22 Zofran IVP 4 mg Q4H PRN Administration Nausea/Vomiting Pantoprazole Sodium 40 mg 04/29/19 09:00 05/07/19 08:14 Protonix PO 40 mg DAILY SANNA Administration Sodium Chloride 10 ml 04/29/19 02:03 05/06/19 21:06 Flush - Normal Saline IVF 10 ml PRN PRN Administration Saline Flush - Exam General Appearance: awake alert Eye: PERRL, anicteric sclera ENT: no oropharyngeal lesions, moist mucosa Neck: supple, no JVD Heart: RRR, no murmur Respiratory: no wheezes, no rales Gastrointestinal: soft, non-tender, non-distended, normal bowel sounds, no guarding, no rigidity Gastrointestinal - other findings: abd wall edema++ Extremities: no cyanosis, 2+ LE edema Neurological: cranial nerve grossly intact, no focal deficits Psychiatric: normal affect, A&O x 3 Hosp A/P (1) Acute respiratory failure with hypoxia Code(s): J96.01 - ACUTE RESPIRATORY FAILURE WITH HYPOXIA Status: Acute (2) LANETTE (acute kidney injury) Code(s): N17.9 - ACUTE KIDNEY FAILURE, UNSPECIFIED Status: Acute (3) Acute on chronic diastolic heart failure Code(s): I50.33 - ACUTE ON CHRONIC DIASTOLIC (CONGESTIVE) HEART FAILURE Status : Acute (4) Hypothyroidism Code(s): E03.9 - HYPOTHYROIDISM, UNSPECIFIED Status: Chronic Qualifiers: Hypothyroidism type: unspecified Qualified Code(s): E03.9 - Hypothyroidism , unspecified (5) Diabetes mellitus type 2 in obese Code(s): E11.69 - TYPE 2 DIABETES MELLITUS WITH OTHER SPECIFIED COMPLICATION; E66.9 - OBESITY, UNSPECIFIED Status: Chronic (6) Morbid obesity with BMI of 60.0-69.9, adult Code(s): E66.01 - MORBID (SEVERE) OBESITY DUE TO EXCESS CALORIES; Z68.44 - BODY MASS INDEX (BMI) 60.0-69.9, ADULT Status: Chronic (7) Obesity hypoventilation syndrome Code(s): E66.2 - MORBID (SEVERE) OBESITY WITH ALVEOLAR HYPOVENTILATION Status : Suspected - Plan is on bipap at bedtime, fluid restriction is recovering well, has a bmi of 62, her weight has remained constant around 397 lbs. counselled to mobilize more with PT is on nebs, asp, omnicef, lasix, coreg, celexa and synthroid. Will add zaroxolyn to see if it makes any difference. watch for renal function. may tx to medical if she can bring her home cpap to hospital d/w CM, pt has agreed to go to swing bed in [place]. hemostable
[2019-05-07] MEDS ORDERED: Metolazone 5 MG TAB PO SCH (12:45)
--- NOTE | 2019-05-07 15:52 | PRG ---
DATE OF SERVICE: 05/07/2019 SUBJECTIVE: Ms. Duran is stable. She has no complaints of shortness of breath today. She denies abdominal complaints. OBJECTIVE: VITAL SIGNS: Heart rate 80, respiratory rate 16, and oximetry is 97%. LUNGS: Clear. HEART: Regular rhythm. ABDOMEN: Soft. Intake and output, positive 265. Positive almost 2 L over the last four days. LABORATORY DATA: Creatinine is 1.41 today. Her creatinine got down to 0.86. IMPRESSION: 1. Diastolic heart failure. 2. Chronic kidney disease. 3. Sleep apnea. 4. Life-threatening obesity. 5. Deconditioning. Apparently, she has been declining physical therapy. She is stable from a rehab standpoint in my opinion; although, we will have to watch her fluid balance and her renal function. Job ID: [id number]
[2019-05-07] MEDS: Morphine 4 MG/ML VIAL SLOW IVP PRN (22:49)
[2019-05-08] MEDS: Morphine 4 MG/ML VIAL SLOW IVP PRN ×2 (03:34→09:29)
[2019-05-08 04:52] LABS: Anion Gap 13 mmol/L (10-20); BUN (Urea Nitrogen) 47 mg/dL (9.8-20.1); Calc. Creatinine Clearance 123 mL/min (70-130); Carbon Dioxide 28 mmol/L (23-31); Chloride 100 mmol/L (98-107); Estimated GFR-MDRD 43; Glucose 152 mg/dL (80-115); Sodium 137 mmol/L (136-145)
[2019-05-08] MEDS: Levothyroxine Sodium 125 MCG TAB PO SCH (05:34)
[2019-05-08] MEDS ORDERED: Metolazone 5 MG TAB PO SCH (08:30)
[2019-05-08] MEDS: Cefdinir 300 MG CAP PO SCH (09:27)
[2019-05-08] MEDS: Citalopram 20 MG TAB PO SCH (09:27)
[2019-05-08] MEDS: Heparin 5,000 UNITS/ML VIAL SC SCH (09:27)
[2019-05-08] MEDS: Carvedilol 3.125 MG TAB PO SCH (09:27)
[2019-05-08] MEDS: Aspirin 81 mg Enteric Coated Tablet PO SCH (09:27)
--- NOTE | 2019-05-08 11:02 | PRG ---
DATE OF SERVICE: 05/08/2019 Radha Duran says she is better OBJECTIVE: VITAL SIGNS: Heart rate 77, blood pressure 124/77, respiratory rate 18. HEART: Regular. ABDOMEN: Soft. LABORATORY: Creatinine is 1.25, platelets 266.000. . IMPRESSION: 1. Volume overload, heart failure combined with hypertension, sleep apnea. 2. Life threatening obesity. 3. Pulmonary Hypertension 4. She has been decling exercise,She needs to be out of bed into chair every day. 5. Paroxysmal rapid atrial fibrillatioin followed by Cardiology while in the hospital. Job ID: [id number] MTDD
--- NOTE | 2019-05-08 11:04 | PDOC.CPN ---
- Subjective Date: 05/08/19 Time: 08:30 Interval history: The pt seen and examined. No overnight events. No cardiac complaints. The pt reported she could walk from her bed to bathroom at home; however, per family, she has not walked for last a few years. - Objective Allergies/Adverse Reactions: Allergies Allergy/AdvReac Type Severity Reaction Status Date / Time chlorpromazine Allergy Verified 04/29/19 03:27 [From Thorazine] iodine Allergy Verified 04/29/19 03:27 Sulfa (Sulfonamide Allergy Verified 04/29/19 03:27 Antibiotics) Visit Medications: Current Medications Acetaminophen (Tylenol) 650 mg PO Q4H PRN PRN Reason: Headache/Fever/Mild Pain (1-3) Last Admin: 05/03/19 18:09 Dose: 650 mg Acetaminophen (Tylenol Elixir) 650 mg PO Q6H PRN PRN Reason: Fever > 101 or Mild Pain Albuterol/Ipratropium (Duoneb) 3 ml NEB [id number] [facility] Last Admin: 05/08/19 07:46 Dose: 3 ml Apixaban (Eliquis) 5 mg PO BID [facility] Aspirin (Ecotrin) 81 mg PO DAILY [facility] Last Admin: 05/08/19 09:27 Dose: 81 mg Atropine Sulfate (Atropine) 0.5 mg IVP ASDIR PRN PRN Reason: Sustained Bradycardia HR < 30 Calcium Carbonate (Tums) 1,000 mg PO Q4H PRN PRN Reason: Heartburn or Indigestion Carvedilol (Coreg) 3.125 mg PO BID [facility] Last Admin: 05/08/19 09:27 Dose: 3.125 mg Cefdinir (Omnicef) 300 mg PO BID [facility] Last Admin: 05/08/19 09:27 Dose: 300 mg Citalopram Hydrobromide (Celexa) 20 mg PO DAILY [facility] Last Admin: 05/08/19 09:27 Dose: 20 mg Dextrose/Water (Dextrose 50%) 25 gm SLOW IVP PRN PRN PRN Reason: Hypoglycemia Furosemide (Lasix) 60 mg SLOW IVP DAILY [facility] Last Admin: 05/08/19 09:27 Dose: 60 mg Glucagon (Glucagon) 1 mg IM PRN PRN PRN Reason: Hypoglycemia Dextrose/Water (D5w) 1,000 mls @ 0 mls/hr IV .Q0M PRN PRN Reason: Hypoglycemia Insulin Human Regular (Humulin R) 0 units SC .MILD SLIDING SCALE PRN PRN Reason: Mild Correctional Scale Last Admin: 05/03/19 11:16 Dose: 2 unit Insulin Human Regular (Humulin R) 0 units SC .BEDTIME SLIDING SC PRN PRN Reason: Bedtime Correctional Scale Levothyroxine Sodium (Synthroid) 125 mcg PO 0600 [facility] Last Admin: 05/08/19 05:34 Dose: 125 mcg Metolazone (Zaroxolyn) 5 mg PO 0830 [facility] Last Admin: 05/08/19 09:27 Dose: 5 mg Mineral Oil/White Petrolatum (Systane Nighttime Eye Ointment) 0 gm EA EYE PRN PRN PRN Reason: Dry Eyes Morphine Sulfate (Morphine) 4 mg SLOW IVP Q2H PRN PRN Reason: Pain Last Admin: 05/08/19 09:29 Dose: 4 mg Nitroglycerin (Nitrostat) 0.4 mg PO Q5MIN PRN PRN Reason: Chest Pain Ondansetron HCl (Zofran) 4 mg IVP Q4H PRN PRN Reason: Nausea/Vomiting Last Admin: 05/05/19 13:22 Dose: 4 mg Pantoprazole Sodium (Protonix) 40 mg PO DAILY [facility] Last Admin: 05/08/19 09:27 Dose: 40 mg Senna/Docusate Sodium (Senokot S) 2 tab PO BID PRN PRN Reason: Constipation Sodium Chloride (Flush - Normal Saline) 10 ml IVF PRN PRN PRN Reason: Saline Flush Last Admin: 05/06/19 21:06 Dose: 10 ml Sodium Chloride (Flush - Normal Saline) 10 ml IVF PRN PRN PRN Reason: Saline Flush Vital Signs & Weight: Vital Signs Temp Pulse Resp Pulse Ox 05/08/19 09:56 98.5 F 05/08/19 08:00 98 05/08/19 07:48 95 05/08/19 07:46 95 20 95 05/08/19 03:39 97.6 F 05/08/19 02:30 74 05/08/19 00:06 121 H 05/07/19 23:35 97.6 F Admit Weight 397 lb 0.84 oz Weight 399 lb 5 oz - Physical Exam General: alert & oriented x3 HEENT: mucus membranes moist Neck: supple neck Cardiac: regular rate and rhythm, S1/S2 Lungs: decreased breath sounds Extremities: other: (non-pitting BLE edema) - Labs Result Diagrams: 05/06/19 04:15 05/08/19 04:19 Troponin/CKMB CK-MB (CK-2) 1.9 ng/mL (0-6.6) 04/29/19 04:15 Troponin I 0.029 ng/mL (< 0.028) H 04/29/19 04:15 - Telemetry Sinus rhythms and dysrhythmias: other (SR with prox Afib) - Assessment/Plan Assessment/Plan: 1. Acute on Chronic Diastolic HF with Rt side HF with dilated RV/RA and pulm. HTN - stable; on Coreg 3.125mg BID and Lasix 60mg IV qd; 2. Mild CAD and s/p LHC in 2013 with 50% stenosis in diag. with no intervention. - on ASA and Coreg; Her LDL in 02/2019 was 60 without any Statin 3. HTN - stable 4. DM type 2 5. Severe LAKESHA - Cpap at HS 6. LANETTE on CKD stage 4 - managed by floorman 7. Hypothyroidism 8. Chronic BLE edema - she is on lasix and zaroxolyn. Will need to be cautious not to over diurese the pt. 9 Chronic abd. discomfort. Hx. of diverticulosis. 10. Prox Afib - several episodes of Afib with HR up to 130s a day and back SR with HR 70-80s; Will start Eliquis 5mg BID from tonight 11. Morbid obesity - strongly recommend weight management MAR reviewed Pt. seen and eval. by me. I agree with the A/P by the LOAN FUNDER.The HR is still fluctuating. I will resume the diltiazem. If this does not control the HR or afib. then antiarrhythmics may be needed. She seems to be tolerating the HR well. The systolic function is normal so she will likely tolerate the intermittent tachycardia.Once the HR is controlled she could be transferred to rehab. Chest clear. RRR at this time.
[2019-05-08] MEDS: Furosemide 100 MG/10 ML VIAL SLOW IVP SCH (11:18)
[2019-05-08] MEDS: Insulin Regular 300 UNITS/3 ML VIAL SC PRN (11:48)
[2019-05-08 11:53] VITALS: BP 109/90
[2019-05-08 12:21] VITALS: TEMP 98.2
--- NOTE | 2019-05-08 19:05 | DIS ---
DATE OF ADMISSION: 04/29/2019 DATE OF DISCHARGE: 05/08/2019 DISCHARGE DISPOSITION: [facility]. PRIMARY DISCHARGE DIAGNOSES: Acute respiratory failure with hypoxia and hypercarbia due to multiple comorbid issues including morbid obesity, obstructive sleep apnea, obesity hypoventilation syndrome, and acute on chronic congestive heart failure exacerbation with diastolic dysfunction; acute kidney injury due to diuresis on top of chronic kidney disease; hypothyroidism; morbid obesity with BMI exceeding 60; diabetes mellitus, type 2. PROCEDURES DONE DURING HOSPITALIZATION: The patient has had echo with 2D Doppler done, which showed EF of 55% to 60% with diastolic dysfunction, RV cavity was enlarged, left atrium was moderately enlarged as well. Ultrasound venous Doppler of lower extremities showed no evidence of DVT. Abdominal ultrasound done showed very scant ascites with abdominal wall edema. Blood cultures x2, no growth. Urine culture, no growth. Influenza A and B antigens were negative. Discharge hemoglobin and hematocrit are 13 and 42, platelet count 266, MCV is 93. Blood gas on the showed a pH of 7.30, pCO2 of 39, PO2 of 78. Discharge BUN and creatinine are 47 and 1.2, serum bicarb is 28, albumin 3.3. BNP 797. TSH 3.81. DISCHARGE MEDICATIONS: 1. Lasix 40 mg p.o. twice daily. 2. Metolazone 2.5 mg p.o. daily for another 15 days. 3. DuoNebs q.6 hourly. 4. Lantus 10 units subcu at bedtime. 5. Omnicef 300 mg p.o. twice daily for 4 days. 6. Coreg 3.125 mg twice daily. 7. Aspirin 81 mg p.o. daily. 8. Eliquis 5 mg twice daily. 9. Protonix 40 mg p.o. daily. 10. Levothyroxine 125 mcg p.o. daily. 11. Cardizem CD 120 mg p.o. daily. 12. Celexa 20 mg p.o. daily. ALLERGIES: ALLERGIC TO CHLORPROMAZINE, IODINE, AND SULFA. INPATIENT CONSULTS: 1. Dr. Botello for Pulmonology. 2. Dr. Zee for Cardiology. DISCHARGE PLAN: The patient to follow up with her primary care physician, Dr. Azalia López in 1 week. She needs to follow up with Dr. Hopkins, her primary table cut off saw operator or Dr. Zee in 2 to 3 weeks. The patient also needs to have outpatient formal sleep study, the old one being more than 20 years old. BRIEF COURSE DURING HOSPITALIZATION: The patient initially got admitted on the with complaints of shortness of breath. On arrival, the patient was also found to be bradycardic in the 40s. She was on atenolol 100 mg and Cardizem CD 120 mg prior to arrival here. The patient was placed on dopamine drip for her bradycardia along with gentle diuresis done for severe anasarca. The patient has had echo done, which revealed normal ejection fraction with diastolic dysfunction. Abdominal ultrasound done showed mild ascites, but had severe abdominal wall edema and anasarca. The patient's BMI is around 62. She has had gentle diuresis done during her stay here. Despite this, the patient still had a lot of third-spacing. This likely will take at least 20 to 30 days for slow removal with careful monitoring of her renal function. She has severe deconditioning and has barely stood up with 1 to 2 steps with max assist with Physical Therapy. In view of severe deconditioning and generalized anasarca, which requires close monitoring with renal function, the patient is being discharged to [facility]. I was told Dr. Avila is her primary care physician at [facility], but she did mention that Dr. Morales is merchandiser seasonal and we will try to reach out to Dr. Morales to give updates about procedures done here. Please note, I have seen and examined the patient on the day of discharge. A total of 35 minutes were spent on discharge plan. Job ID: [id number]
[2019-05-08] MEDS ORDERED: Apixaban 5 MG TAB PO SCH (21:00)
== END 2019-05-08 15:45 | DRG 291 ==
LOC: ERS 21:27 → CCU 04-29 00:52 → IMCU/EMU 05-04 21:53
PROVIDERS: ADMIT Internal Medicine; ATTEND Internal Medicine
PROC: 05HM33Z Insertion of Infusion Device into Right Internal Jugular Vein, Percutaneous Approach (ICD-10-PCS; principal; 2019-04-29)
PROC: B543ZZA Ultrasonography of Right Jugular Veins, Guidance (ICD-10-PCS; 2019-04-29)
DX: I13.0 Hypertensive heart and chronic kidney disease with heart failure and stage 1 through stage 4 chronic kidney disease, or unspecified chronic kidney disease (principal); J96.01 Acute respiratory failure with hypoxia; I50.33 Acute on chronic diastolic (congestive) heart failure; N17.9 Acute kidney failure, unspecified; E87.1 Hypo-osmolality and hyponatremia; Z68.44 Body mass index [BMI] 60.0-69.9, adult; N18.4 Chronic kidney disease, stage 4 (severe); E11.22 Type 2 diabetes mellitus with diabetic chronic kidney disease; E83.42 Hypomagnesemia; I25.10 Atherosclerotic heart disease of native coronary artery without angina pectoris; E78.5 Hyperlipidemia, unspecified; E66.01 Morbid (severe) obesity due to excess calories; K21.9 Gastro-esophageal reflux disease without esophagitis; E03.9 Hypothyroidism, unspecified; M54.5 Low back pain; G47.33 Obstructive sleep apnea (adult) (pediatric); I27.20 Pulmonary hypertension, unspecified; D64.9 Anemia, unspecified; I95.9 Hypotension, unspecified; R53.81 Other malaise; Z90.49 Acquired absence of other specified parts of digestive tract; Z88.2 Allergy status to sulfonamides; Z98.51 Tubal ligation status; Z87.891 Personal history of nicotine dependence
CPT/HCPCS: 36415; 36416; 51701; 71045; 76770; 80048; 80053; 81003; 81015; 82553; 82805; 83605; 83735; 83880; 84443; 84484; 85025; 85610; 85730; 87040; 87086; 87804; 93005; 93010; 93306; 93970; 93975; 94640; 94660; 94760; 96365; 96367; 96375; A4353; J0456; J0696; J1265; J1644; J1815; J1940; J2001; J2270; J2405; J3475; J3490; J7050; J7620

== ENCOUNTER 2019-09-09 15:46 | Inpatient (IN) | payer MEDICARE, OTHER ==
[~2019-09-09 15:46] MED LIST: Iopamidol-370 76% 500 ML 1 ML ONE
[2019-09-09 16:46] LABS: #Lymphocytes 2.6 thou/uL (1.20-3.40); #Monocytes 0.7 thou/uL (0.11-0.59); #Neutrophils 4.1 thou/uL (1.40-6.50); %Basophils 0.1 % (0.0-1.0); %Eosinophils 0.6 % (0.0-10.0); %Lymphocytes 34.7 % (21.0-51.0); %Neutrophils 54.7 % (42.0-75.0); Hemoglobin 13.1 g/dL (12.0-16.0); Mean Corpuscular HGB CONC 34.2 g/dL (32.0-36.0); Mean Corpuscular Hemoglobin 29.9 pg (27.0-31.0); Mean Corpuscular Volume 87.5 fL (78.0-98.0); Mean Platelet Volume 8.3 fL (7.4-10.4); Platelet Count 179 thou/uL (130-400); RBC Distribution Width 14.7 % (11.5-14.5); Red Blood Cell (RBC) Count 4.37 mill/uL (4.20-5.40); White Blood Cell (WBC) Count 7.4 thou/uL (4.8-10.8)
[2019-09-09 16:59] LABS: AST (SGOT) 19 U/L (5-34); Anion Gap 17 mmol/L (10-20); BUN (Urea Nitrogen) 43 mg/dL (9.8-20.1); Bilirubin, Total 0.6 mg/dL (0.2-1.2); Calc. Creatinine Clearance 0 mL/min (70-130); Carbon Dioxide 32 mmol/L (23-31); Chloride 84 mmol/L (98-107); Estimated GFR-MDRD 33; Globulin 4.2 g/dL (2.4-3.5); Glucose 218 mg/dL (80-115); Lipase 20 U/L (8-78); Sodium 130 mmol/L (136-145)
[2019-09-09 17:06] LABS: Potassium 2.6 mmol/L (3.5-5.1)
[2019-09-09] MEDS ORDERED: Potassium Chloride 20 MEQ TAB ONE (17:49)
[2019-09-09] MEDS ORDERED: methylPREDNISolone Sod Succ 40 MG VIAL ONE (17:49)
[2019-09-09] MEDS ORDERED: Magnesium 2 GM/50 ML BAG (IN WATER) ONE (17:49)
[2019-09-09] MEDS ORDERED: diphenhydrAMINE 50 MG/ML VIAL ONE (17:49)
[2019-09-09] MEDS ORDERED: Famotidine/PF 20 mg/2ml Vial ONE (17:49)
[2019-09-09 17:51] LABS: ALT (SGPT) 11 U/L (8-55); Albumin 3.8 g/dL (3.4-4.8); Alkaline Phosphatase 109 U/L (40-110)
[2019-09-09 17:54] LABS: CKMB 0.6 ng/mL (0-6.6)
[2019-09-09] MEDS ORDERED: NS 0.9% w/ 40 MEQ KCL 1,000 ML IV SCH (18:00)
[2019-09-09] MEDS ORDERED: Ondansetron ODT 4 MG TAB ONE (18:04)
--- NOTE | 2019-09-09 19:33 | CT ---
CT ABDOMEN AND PELVIS WITH IV CONTRAST 09/09/2019 CLINICAL INFORMATION: Chronic epigastric pain which is been getting worse. COMPARISON: None. Technique: Multiple contiguous axial CT images are obtained through the abdomen and pelvis with IV contrast. Cor onal reformatted images are provided. FINDINGS: Lower Chest: Consolidation is seen at the right lung base with incomplete visualization of minimal ai rspace densities in the right middle lobe and lingula. These density were better visualized on CT angiogram chest, and please see that exam for further details. Vessels: Vascular calcifications are seen in the abdominal aorta and in the iliac arteries. Abdomen: Portal vein:Patent Gallbladder: Not visualized and may be surgically absent. Liver: within normal limits. Spleen: Punctate splenic granuloma visualized. Pancreas: within normal limits. Adrenals: Question of a small nodule involving the lateral limb of the left adrenal gland measuring 1 .6 cm. Follow-up noncontrast CT abdomen is recommended. Kidneys: within normal limits. Bowel: Fluid seen in the distal esophagus which may related to gastroesophageal reflux. Loops of smal l bowel are normal in caliber. Colonic diverticulosis is present. Appendix: Not visualized, but there are no secondary signs to suggest appendicitis. Peritoneum: No ascites or free air; no fluid collection. Mesentery and Retroperitoneum: No enlarged mesenteric or retroperitoneal lymph nodes. Abdominal Wall: There are multiple linear calcifications seen in the adipose tissues involving the lo wer abdominal fat/pannus with similar-appearing calcifications seen in the gluteal adipose tissues bilaterally. Findings may be related to areas of fat necrosis with calcification. There is a prominen t fat-containing umbilical hernia. Pelvis: Reproductive Organs: Calcifications are seen in the right aspect of the uterus. Pelvis within normal limits. Bladder: within normal limits. Bones: Degenerative changes are seen in the spine. IMPRESSION: 1. Multifocal densities seen at each lung base with large area of consolidation right lung base. Find ings are worrisome for multifocal pneumonia or viral pneumonitis. 2. Question of left adrenal nodule. A follow-up CT abdomen without IV contrast is recommended for fur ther evaluation. 3. Fluid in the distal esophagus which may related to gastroesophageal reflux. 4. Colonic diverticulosis. 5. Prominent fat-containing umbilical hernia.
--- NOTE | 2019-09-09 19:40 | CT ---
CT PULMONARY ANGIOGRAM CHEST WITH 3D RENDERING: History: Chest pain, epigastric pain. FINDINGS: There are patchy bilateral alveolar and ground glass opacity changes, somewhat peripherally oriented in both right and left lungs which certainly has an appearance that is consistent with that of bilate ral Covid pneumonia. There is a moderate sized hiatal hernia with fluid noted within the esophagus, e vidence for gastroesophageal reflux. There are numerous lymph nodes noted within the mediastinum incl uding some minimally enlarged nodes, a prevascular node, short axis 0.8 cm; AP window node, short axi s 1.1 cm; as well as other borderline sized nodes. There is three vessel coronary artery calcific dis ease. There is no convincing evidence for acute pulmonary embolism. Visualized upper abdomen appears unremarkable. Minimal bilateral pleural based thickening. 0.2 cm right middle lobe pleural based nodu le. IMPRESSION: 1. Bilateral alveolar and ground glass opacity changes throughout both lungs, evidence for bilateral Covid pneumonia. 2. No convincing CT evidence for acute pulmonary embolism. 3. Moderate sized hiatal hernia with evidence for gastroesophageal reflux. 4. Minimal mediastinal adenopathy. 5. 0.2 cm pleural based nodule in the right middle lobe. 6. Other findings as above. POS: RRE
[2019-09-09] MEDS ORDERED: Dexamethasone 10 MG/ML VIAL ONE (21:52)
[2019-09-09] MEDS ORDERED: cefTRIAXone\\ROCEPHIN 1 GM VIAL ONE (21:52)
[2019-09-09 22:11] LABS: SARS-CoV-2 NAA Rapid Test DETECTED (NotDetected)
[2019-09-09 22:56] LABS: Troponin I 0.038 ng/mL (< 0.028)
[2019-09-10] MEDS ORDERED: Senokot S 8.6-50 MG TAB PO PRN (00:32)
[2019-09-10] MEDS ORDERED: Calcium Carbonate 500 MG ChewTAB PO PRN ×2 (00:32→20:36)
[2019-09-10] MEDS ORDERED: Guaifenesin DM 100-10/5 ML UDCUP PO PRN (00:32)
[2019-09-10] MEDS ORDERED: Ondansetron PF 4 MG/2 ML Vial IVP PRN (00:32)
[2019-09-10] MEDS ORDERED: Ondansetron ODT 4 MG TAB PO PRN (00:32)
[2019-09-10] MEDS ORDERED: Aspirin 325 MG TAB PO SCH (00:45)
[2019-09-10] MEDS ORDERED: Dextrose 50% Abboject 50 ML SYRINGE SLOW IVP PRN (00:50)
[2019-09-10] MEDS ORDERED: Dextrose 5% in Water 1,000 ML IV PRN (00:50)
[2019-09-10] MEDS ORDERED: Potassium Chloride 20 MEQ TAB PO SCH ×2 (01:00→07:30)
[2019-09-10 01:51] LABS: ALT (SGPT) 11 U/L (8-55); AST (SGOT) 19 U/L (5-34); Albumin 3.8 g/dL (3.4-4.8); Alkaline Phosphatase 110 U/L (40-110); Anion Gap 17 mmol/L (10-20); BUN (Urea Nitrogen) 43 mg/dL (9.8-20.1); Bilirubin, Total 0.5 mg/dL (0.2-1.2); Calc. Creatinine Clearance 0 mL/min (70-130); Calcium 8.9 mg/dL (7.8-10.44); Carbon Dioxide 30 mmol/L (23-31); Chloride 88 mmol/L (98-107); Estimated GFR-MDRD 32; Globulin 4.2 g/dL (2.4-3.5); Glucose 397 mg/dL (80-115); Potassium 3.7 mmol/L (3.5-5.1); Sodium 131 mmol/L (136-145)
[2019-09-10] MEDS: Azithromycin 500 MG in Sodium Chloride 0.9% 250 ML 250 ML IVPB SCH (02:04)
[2019-09-10] MEDS: HumaLOG 300 UNITS/3 ML VIAL SC PRN ×4 (02:15→20:35)
--- NOTE | 2019-09-10 02:30 | HP ---
PRIMARY CARE PHYSICIAN: Barbara CHIEF COMPLAINT: Chest pain and shortness of breath. HISTORY OF PRESENT ILLNESS: The patient is a 69-year-old female with a past medical history significant for COPD, on home oxygen, obstructive sleep apnea, on CPAP, CHF, type 2 diabetes, on insulin, hypertension, hypothyroidism, and GERD, who presents to the ER for the above complaint. The patient reports having chronic epigastric pain, however, over the past several days, that pain has worsened. She describes the pain as "sick to my stomach." She reports that it is constant. It is exacerbated with movement. It is relieved by nothing. It is associated with some nausea and shortness of breath which she claims she has also had for several months. She denies any diarrhea or blood in her stools. She denies any hemoptysis. She denies any heart palpitations or swelling to her lower extremities. She does report a low-grade fever and having chills yesterday. For these reasons, she came to the ER. In the ER, EKG, 62 beats per minute, prolonged QT, had some T-wave flattening. Initial troponin 0.036, second troponin 0.040, CK-MB 0.6. BNP 152.1. D-dimer was 2.0. CT of the chest was performed. It showed bilateral alveolar and ground- glass opacities to both lungs. Evidence for bilateral COVID pneumonia. No convincing CT evidence for acute pulmonary embolism. Mild hiatal hernia. Evidence of gastroesophageal reflux. It also showed a 0.2 cm pleural-based nodule in the right middle lobe. CT of the abdomen showed multifocal densities at each lung base with an area of consolidation in the right lung base, findings worrisome for multifocal pneumonia or viral pneumonitis, questionable left adrenal nodule. Recommended CT abdomen without IV contrast followup nonemergent. The patient had a sodium of 130, corrected for glucose 132, potassium of 2.6, creatinine of 1.54, BUN of 43, lipase of 20, WBCs of 7.4, and COVID positive. The patient was given dexamethasone, Solu-Medrol, Rocephin, Benadryl, Pepcid, 40 mEq of potassium, 2 g of magnesium. She will be admitted to the floor. PAST MEDICAL HISTORY: 1. COPD, on home O2, 2 L nasal cannula. 2. Obstructive sleep apnea, on CPAP at home. 3. CHF. Echo on 04/29/2019 showed EF of 50% to 55% with some diastolic dysfunction. 4. Diabetes type 2, on Levemir 20 units b.i.d. 5. Hypertension. 6. Hypothyroidism. 7. GERD. PAST SURGICAL HISTORY: 1. Tubal. 2. Appendectomy. 3. Cholecystectomy. SOCIAL HISTORY: The patient lives with her family at home. She is a former smoker, quit greater than 10 years ago. No illicit drug use. No alcohol intake. FAMILY HISTORY: Noncontributory to this case. ALLERGIES: 1. IODINE. 2. SULFA. 3. THORAZINE. HOME MEDICATIONS: Unable to reconcile home medications with the patient at bedside. REVIEW OF SYSTEMS: All review of systems are negative unless otherwise stated in the HPI. PHYSICAL EXAMINATION: VITAL SIGNS: Temperature 98.9, blood pressure 143/76, pulse 70, respirations 24 , 99% on 2 L nasal cannula, 0/10 pain. CONSTITUTIONAL: The patient is alert and oriented to person, place, and time. No acute distress. Nontoxic in appearance. HEAD: Atraumatic and normocephalic. EYES: PERRLA. Extraocular muscles intact. ENT: Bilateral TMs intact. EACs clear. Nares patent bilaterally. Oropharynx is clear. Uvula midline. Tacky mucous membranes. No oral lesions. NECK: Full range of motion. No cervical spinous tenderness. No cervical adenopathy. No JVD. RESPIRATORY/CHEST: Respirations are even and unlabored. The patient is on 2 L nasal cannula. SpO2 of 100%. The patient is mildly tachypneic, breathing about 20-24 per minute. No rhonchi, wheezes, or rales. CHEST: Regular rate and rhythm. No murmurs, rubs, or gallops. ABDOMEN: Soft. Mildly tender to the epigastric region. Active bowel sounds. No guarding. No rigidity. No rebound. Negative Rovsing sign. Negative Braden sign. No abdominal bruit auscultated. BACK: Full range of motion. No central spinous tenderness. No CVA tenderness. UPPER EXTREMITIES: Full range of motion. Strength intact. Sensation intact. Palpable radial pulses. LOWER EXTREMITIES: Full range of motion. Strength intact. Sensation intact. Palpable pedal pulses. NEURO: The patient is alert and oriented to person, place, and time. Normal speech. Moving all extremities. No focal motor deficits. Cranial nerves 2 through 12 are intact. SKIN: Warm, dry, and intact. PSYCHIATRIC: Normal affect. A and O x3. LABS AND DIAGNOSTICS: CT of the chest: Bilateral alveolar and ground-glass opacities throughout both lungs. Evidence for bilateral COVID pneumonia. No evidence of acute pulmonary embolism. There is a 0.2 cm pleural-based nodule in the right middle lobe. CT of the abdomen and pelvis: Multifocal densities seen at each lung base with large area of consolidation in the right lung base concerning for multifocal pneumonia versus viral pneumonitis. Questionable left adrenal nodule. Recommend followup CT without IV contrast nonemergent. Initial troponin 0.036, next troponin 0.040, then 0.038. BNP 152.7. D-dimer 2.0. Sodium 130, potassium 2.6, chloride 84, carbon dioxide 32, BUN 43, creatinine 1.57, glucose 218, calcium 9, Mag 1.4, total bilirubin 0.6. AST 19, ALT 11, alkaline phosphatase 109, lipase 20, albumin 3.8. WBCs 7.4, hemoglobin 13.1, hematocrit 38.2, platelets 179. COVID positive. CONTINUATION: IMPRESSION AND PLAN: 1. COVID pneumonia. We will admit the patient to the telemetry floor inpatient status. Expected length of stay greater than two midnights. The patient presented for worsening chest pain and shortness of breath over the last several days. The patient had elevated D-dimer. CT of chest was consistent for bilateral COVID pneumonia, possible multifocal pneumonia. The patient was given Rocephin and dexamethasone in the ER. We will continue Rocephin. We will add azithromycin. We will continue dexamethasone scheduled. We will check acute phase reactants. We will start vitamin C and zinc. We will consult Infectious Disease. We will place the patient on droplet precautions and give supplemental oxygen as needed. #. 2. Chest pain, rule out acute coronary syndrome. The patient presented for epigastric pain that she has had for over two months. We will trend troponins. We will give aspirin full dose. The patient had echo on 04/29/2019, showed EF of 50% to 55% with some diastolic dysfunction. The patient had recent fasting lipids and TSH levels that appeared within normal limits. We will not repeat those lab levels. We will repeat EKG in the a.m. 3. Acute kidney injury. The patient presented with a BUN of 43 and a creatinine of 1.57 on 08/09/2019. Her creatinine was 1.22, so mild acute kidney injury. The patient was given some fluids in the ER. We will recheck labs in the a.m. 4. Hypokalemia. The patient presented with a potassium of 2.6 and EKG does show some T-wave flattening. The patient was given 40 mEq of potassium in the ER. We will give 40 more mEq's orally on the floor and we will recheck level in the a.m. 5. Hypomagnesium. The patient presented with a magnesium of 1.4, was given 2 g of magnesium in the ER. We will recheck level in the a.m. 6. Hyponatremia. The patient presented with a sodium of 130, corrected for elevated glucose, it is 132, mild. We will recheck in a.m. 7. Incidental finding of a left adrenal nodule. Recommended CT without contrast , followup nonemergent. 8. Chronic obstructive pulmonary disease. The patient is on home O2 of 2 L. We will continue supplemental oxygen as needed. We will give nebs as needed. #. Obstructive sleep apnea. The patient is on CPAP at home. We will get respiratory therapy to initiate CPAP therapy per patient's request. 9. Congestive heart failure, chronic. The patient had an echo on 04/29/2019, showed an EF of 50% to 55% with some diastolic dysfunction. We will continue to monitor. 10. Diabetes type 2, insulin dependent. The patient says she takes Levemir 20 units b.i.d. We will restart long-acting insulin and we will start the patient on moderate sliding scale with before meals and at bedtime Accu- Cheks. 11. Hypertension. The patient presented with a mildly elevated blood pressure of 153/79. When home medications are reconciled, we will restart antihypertensive home medications. 12. Hypothyroidism. The patient takes levothyroxine unknown dosage. When reconciled by nursing, we will restart in the a.m. 13. Acid reflux. We will start Protonix. We will start Lovenox for deep venous thrombosis prophylaxis and Protonix for gastrointestinal prophylaxis. The patient is a full code. Her contact is her daughter, [place], #[phone]. Discussed the case with Dr. Lamar. Job ID: [id number] [facility]
[2019-09-10 05:18] LABS: #Lymphocytes 1.1 thou/uL (1.20-3.40); #Monocytes 0.3 thou/uL (0.11-0.59); #Neutrophils 2.7 thou/uL (1.40-6.50); %Basophils 0.9 % (0.0-1.0); %Eosinophils 0.4 % (0.0-10.0); %Lymphocytes 26.8 % (21.0-51.0); %Monocytes 6.6 % (0.0-10.0); %Neutrophils 65.4 % (42.0-75.0); Hemoglobin 12.9 g/dL (12.0-16.0); Mean Corpuscular HGB CONC 30.7 g/dL (32.0-36.0); Mean Corpuscular Hemoglobin 27.6 pg (27.0-31.0); Mean Corpuscular Volume 89.8 fL (78.0-98.0); Mean Platelet Volume 8.9 fL (7.4-10.4); Platelet Count 176 thou/uL (130-400); RBC Distribution Width 14.9 % (11.5-14.5); Red Blood Cell (RBC) Count 4.66 mill/uL (4.20-5.40); White Blood Cell (WBC) Count 4.1 thou/uL (4.8-10.8)
[2019-09-10 05:40] LABS: CRP (Inflammatory) 6.87 mg/dL (= or < 0.5); Magnesium 1.9 mg/dL (1.6-2.6)
[2019-09-10 05:46] LABS: Anion Gap 16 mmol/L (10-20); BUN (Urea Nitrogen) 43 mg/dL (9.8-20.1); Calc. Creatinine Clearance 76 mL/min (70-130); Calcium 8.6 mg/dL (7.8-10.44); Carbon Dioxide 26 mmol/L (23-31); Chloride 89 mmol/L (98-107); Estimated GFR-MDRD 32; Glucose 495 mg/dL (80-115); Potassium 3.4 mmol/L (3.5-5.1); Sodium 128 mmol/L (136-145)
[2019-09-10] MEDS ORDERED: Electrolyte Replacement Protoc 1 EACH EACH FS SCH ×2 (07:30→17:30)
[2019-09-10] MEDS ORDERED: Magnesium 2 GM/50 ML 2 GM in Premix Bag 1 BAG IVPB SCH (07:45)
[2019-09-10 08:51] LABS: ALT (SGPT) 11 U/L (8-55); AST (SGOT) 17 U/L (5-34); Alkaline Phosphatase 115 U/L (40-110); Anion Gap 15 mmol/L (10-20); BUN (Urea Nitrogen) 42 mg/dL (9.8-20.1); Bilirubin, Total 0.4 mg/dL (0.2-1.2); Calc. Creatinine Clearance 74 mL/min (70-130); Calcium 9.1 mg/dL (7.8-10.44); Carbon Dioxide 31 mmol/L (23-31); Chloride 88 mmol/L (98-107); Estimated GFR-MDRD 31; Globulin 4.4 g/dL (2.4-3.5); Glucose 439 mg/dL (80-115); Potassium 3.4 mmol/L (3.5-5.1); Protein, Total 8.4 g/dL (6.0-8.3); Sodium 131 mmol/L (136-145)
[2019-09-10] MEDS ORDERED: Famotidine/PF 20 mg/2ml Vial SLOW IVP SCH (09:00)
[2019-09-10] MEDS ORDERED: Famotidine 20 MG TAB PO SCH (09:00)
[2019-09-10] MEDS: Dexamethasone 10 MG/ML VIAL SLOW IVP SCH (09:50)
[2019-09-10] MEDS: Insulin Glargine 20 UNITS in Pre-Filled Syringe 1 EACH SC SCH ×2 (09:50→20:35)
[2019-09-10] MEDS: Pantoprazole 40 MG VIAL IVP SCH (09:50)
[2019-09-10] MEDS: Ascorbic Acid 500 mg Chewable Tablet PO SCH (09:51)
[2019-09-10] MEDS: Zinc Sulfate 220 MG CAP PO SCH (09:51)
[2019-09-10 17:02] LABS: ALT (SGPT) 10 U/L (8-55); AST (SGOT) 16 U/L (5-34); Albumin 3.7 g/dL (3.4-4.8); Alkaline Phosphatase 101 U/L (40-110); Anion Gap 17 mmol/L (10-20); BUN (Urea Nitrogen) 41 mg/dL (9.8-20.1); Bilirubin, Total 0.3 mg/dL (0.2-1.2); Calc. Creatinine Clearance 83 mL/min (70-130); Carbon Dioxide 27 mmol/L (23-31); Chloride 90 mmol/L (98-107); Estimated GFR-MDRD 35; Glucose 373 mg/dL (80-115); Potassium 4.3 mmol/L (3.5-5.1); Protein, Total 7.7 g/dL (6.0-8.3); Sodium 130 mmol/L (136-145)
[2019-09-10] MEDS ORDERED: HumaLOG 300 UNITS/3 ML VIAL SC PRN (17:25)
[2019-09-10] MEDS ORDERED: HumaLOG 300 UNITS/3 ML VIAL SC SCH (17:45)
--- NOTE | 2019-09-10 18:39 | CON ---
DATE OF CONSULTATION: 09/10/2019 REASON FOR CONSULTATION: COVID infection, abdominal pain. HISTORY OF PRESENT ILLNESS: A 69-year-old with history of obesity; venous insufficiency; CKD, stage 3; sleep apnea, on CPAP; hypoventilation syndrome; and type 2 diabetes, who had been admitted in April and discharged almost one month later after having developed diastolic heart failure with worsening dyspnea, which had been present for the three months prior to this admission. She had diuresis in the hospital with Lasix and lost about 54 pounds in weight, was eventually transferred to home with [facility]. She lives in [place] with family members and one of her family members tested positive for COVID recently , and she really does not have a lot of precision in the limitation of the symptomatic deterioration except that she had this fairly rapid onset of diffuse abdominal cramps when she was trying to have a bowel movement 2 days ago and that precipitated her arrival to the emergency room yesterday with this abdominal pain. She has had abdominal issues in the past, which were ascribed to H pylori. On arrival, BP 150/70, pulse 63, temperature 99.6, O2 saturations were 100%, and the pertinent findings in the exam included normal lung sounds and the abdomen was tender in the epigastric area, moderately so. Other findings on admission included a white cell count 7.4, normal hemoglobin and platelets, normal differential. D-dimers 2. Sodium 130, potassium 2.6, creatinine 1.57 with a baseline of 0.98. Liver profile normal and CRP was 6.87 and ferritin 185. Albumin 3.8. Urinalysis was not obtained. The patient had a positive COVID test RNA PCR on 09/08. CT of the abdomen was not particularly remarkable. She did have vascular calcifications noted and she did have consolidation in right lung base, also has minimal airspace densities in the right middle lobe and lingula. There is some fluid in the distal esophagus, but now nothing else. Currently, Ms. Duarn was using her CPAP and she was able to remove it and then appear in distress. No headaches. No dyspnea. No chest pain. The abdominal pain has improved. No joint symptoms. She has chronic areas of drainage in the soft tissues of the left thigh and sometimes they are characterized by the excretion of those stony like particles from those orifices. PAST MEDICAL HISTORY: Obesity; type 2 diabetes; cardiomyopathy, probably ischemic; obstructive sleep apnea; CKD. She also has those areas of calcification in subcutaneous tissues but those are described below. SOCIAL HISTORY: Former smoker, quit more than 10 years ago. Lives with family in [place]. ALLERGIES: CHLORPROMAZINE. MEDICATIONS: 1. Azithromycin. 2. Ceftriaxone. 3. Decadron. 4. Glucagon. 5. Insulin. 6. Zinc. FAMILY HISTORY: Type 2 diabetes, recent COVID diagnosis in one of her family members who lives in the same household. PHYSICAL EXAMINATION: VITAL SIGNS: T-max 98.1, blood pressure 130/70, pulse 61, respirations 16 to 20. She has been afebrile since admission. Other vital signs are not remarkable. O2 saturations are ranged from 93% to 96% on 2 L nasal cannula. SKIN: She has those areas of stony like hardening of the subcutaneous skin and some are in a very platelike distribution in the medial thighs also in the abdominal area. She has peripheral IV access. LYMPHATIC: No lymphadenopathy. HEENT: Ocular movements conjugate. Oral cavity with some missing teeth. NECK: Supple. No jugular vein distention. LUNGS: With symmetric air entry. HEART: S1 and S2. Regular rate. ABDOMEN: Soft. Very prominent panniculus in those areas of hardening with stone hardening of the skin. EXTREMITIES: She has some element of lymphedema in lower extremities and lipodermatosclerosis. Pulses are 1+ in dorsalis pedis. NEUROLOGIC: Nonfocal. She is awake, oriented, follows commands. Speaking, is able to speak in full sentences. LABORATORY DATA: Sodium 128, creatinine 1.62, glucose 495. ASSESSMENT: Obesity, cardiomyopathy, probably ischemic, diastolic dysfunction, obstructive sleep apnea that is likely tissue calcinosis in abdomen and lower extremities, COVID infection, [id number] abdominal pain. DISCUSSION: The patient is early in her COVID infection and she has been started on Decadron. She is not yet eligible for any other treatment at this point in time and I am afraid she is at high risk for decompensation in the ensuing days. For example, if she is discharged, she may be readmitted with decompensation after 7th day of illness. Right now, I think she is around the 3rd or the 4th day approximately but it is hard to be precise. She does have those areas of calcinosis, but those are chronic and I do not think have a bearing on her current problem. Job ID: [id number] MTDD
[2019-09-10] MEDS: Acetaminophen 325 MG TAB PO PRN (20:16)
[2019-09-10] MEDS ORDERED: Acetaminophen 325 MG TAB PO PRN (20:36)
[2019-09-10] MEDS ORDERED: Nitroglycerin 0.4 MG TAB (25 Tab Bottle) SL PRN (20:36)
[2019-09-10] MEDS ORDERED: Nystatin Powder 15 GM BOT TOP PRN (20:40)
[2019-09-10] MEDS ORDERED: Insulin Glargine 20 UNITS in Pre-Filled Syringe 1 EACH SC SCH (21:00)
[2019-09-10] MEDS ORDERED: Albuterol 200 PUFF (6.7GM INHALER) INH PRN (21:02)
[2019-09-10] MEDS: Melatonin 3 MG TAB PO PRN (21:45)
[2019-09-10] MEDS ORDERED: Citalopram 20 MG TAB PO SCH (21:45)
[2019-09-10] MEDS: Carvedilol 3.125 MG TAB PO SCH (21:45)
[2019-09-10] MEDS: Apixaban 5 MG TAB PO SCH (21:45)
[2019-09-10] MEDS: Gabapentin 300 MG CAP PO SCH (21:45)
[2019-09-10] MEDS ORDERED: cefTRIAXone\\ROCEPHIN 1 GM in Sodium Chloride 0.9% 100 ML IVPB SCH (22:00)
[2019-09-11] MEDS: Azithromycin 500 MG in Sodium Chloride 0.9% 250 ML 250 ML IVPB SCH (02:29)
[2019-09-11 05:48] LABS: Anion Gap 16 mmol/L (10-20); BUN (Urea Nitrogen) 43 mg/dL (9.8-20.1); Calc. Creatinine Clearance 80 mL/min (70-130); Calcium 8.7 mg/dL (7.8-10.44); Carbon Dioxide 28 mmol/L (23-31); Chloride 90 mmol/L (98-107); Estimated GFR-MDRD 34; Glucose 510 mg/dL (80-115); Magnesium 2.3 mg/dL (1.6-2.6); Potassium 3.9 mmol/L (3.5-5.1); Sodium 130 mmol/L (136-145)
[2019-09-11] MEDS: HumaLOG 300 UNITS/3 ML VIAL SC PRN ×3 (06:42→21:05)
[2019-09-11] MEDS ORDERED: HumaLOG 300 UNITS/3 ML VIAL SC SCH ×2 (08:00→08:20)
[2019-09-11] MEDS ORDERED: Potassium Chloride 20 MEQ TAB PO SCH (08:00)
[2019-09-11] MEDS: Ascorbic Acid 500 mg Chewable Tablet PO SCH (08:44)
[2019-09-11] MEDS: Carvedilol 3.125 MG TAB PO SCH ×2 (08:44→20:54)
[2019-09-11] MEDS: Apixaban 5 MG TAB PO SCH ×2 (08:44→20:54)
[2019-09-11] MEDS: Aspirin 81 mg Enteric Coated Tablet PO SCH (08:45)
[2019-09-11] MEDS: Gabapentin 300 MG CAP PO SCH ×2 (08:45→20:54)
[2019-09-11] MEDS: Furosemide 20 MG TAB PO SCH ×2 (08:45→15:16)
[2019-09-11] MEDS: Zinc Sulfate 220 MG CAP PO SCH (08:45)
[2019-09-11] MEDS: Fluticasone Propionate Nasal Spray 16 gm Bottle NASAL SCH (08:46)
[2019-09-11] MEDS: Citalopram 20 MG TAB PO SCH (08:46)
[2019-09-11] MEDS: Dexamethasone 10 MG/ML VIAL SLOW IVP SCH (08:46)
[2019-09-11] MEDS: Pantoprazole 40 MG VIAL IVP SCH (08:47)
[2019-09-11 08:56] LABS: Hemoglobin 12.3 g/dL (12.0-16.0); Platelet Count 229 thou/uL (130-400)
[2019-09-11] MEDS ORDERED: Insulin Glargine 50 UNITS in Pre-Filled Syringe 1 EACH SC SCH (09:00)
[2019-09-11] MEDS ORDERED: Insulin Glargine 25 UNITS in Pre-Filled Syringe 1 EACH SC SCH (09:00)
[2019-09-11] MEDS: Acetaminophen 325 MG TAB PO PRN ×2 (09:10→11:42)
[2019-09-11] MEDS: HumaLOG 300 UNITS/3 ML VIAL SC SCH ×2 (11:42→17:07)
--- NOTE | 2019-09-11 15:02 | PDOC.HOSPP ---
- Subjective Encounter Date: 09/11/19 Encounter Time: 09:00 Subjective: no overnight events. this morning, complains of diffuse pressing headache, 5-6/ 10, not associated with photo- or phono-phobia, n/v, or change in vision. otherwise no complaints. - Objective Vital Signs & Weight: Vital Signs (12 hours) Temp Pulse Resp BP Pulse Ox 09/11/19 11:55 97.9 F 61 18 153/76 H 97 09/11/19 08:45 94 L 09/11/19 07:55 97.7 F 65 22 H 139/69 94 L Weight Admit Weight 318 lb Weight 323 lb I&O: 09/10/19 09/11/19 09/12/19 06:59 06:59 06:59 Intake Total 790 2210 Output Total 800 2100 Balance -10 110 Result Diagrams: 09/11/19 08:43 09/11/19 08:43 Hospitalist ROS - Review of Systems Constitutional: denies: fever, chills, sweats Respiratory: denies: cough, dry, shortness of breath Cardiovascular: denies: chest pain, palpitations, orthopnea Gastrointestinal: denies: nausea, vomiting, abdominal pain - Medication Medications: Active Medications Generic Name Dose Route Start Last Admin Trade Name Freq PRN Reason Stop Dose Admin Acetaminophen 650 mg 09/10/19 00:32 09/11/19 11:42 Tylenol PO 650 mg Q4H PRN Administration Headache/Fever/Mild Pain (1-3) Apixaban 5 mg 09/10/19 21:00 09/11/19 08:44 Eliquis PO 5 mg BID SANNA Administration Ascorbic Acid 1,000 mg 09/10/19 09:00 09/11/19 08:44 Vitamin C PO 1,000 mg DAILY SANNA Administration Aspirin 81 mg 09/11/19 09:00 09/11/19 08:45 Ecotrin PO 81 mg DAILY SANNA Administration Carvedilol 3.125 mg 09/10/19 21:00 09/11/19 08:44 Coreg PO 3.125 mg BID SANNA Administration Citalopram Hydrobromide 20 mg 09/11/19 09:00 09/11/19 08:46 Celexa PO 20 mg DAILY SANNA Administration Dexamethasone 6 mg 09/10/19 09:00 09/11/19 08:46 Decadron SLOW IVP 6 mg DAILY SANNA Administration Diltiazem HCl 120 mg 09/11/19 09:00 09/11/19 08:45 Cardizem Cd PO 120 mg DAILY SANNA Administration Fluticasone Propionate 0 gm 09/11/19 09:00 09/11/19 08:46 Flonase Nasal [place] NASAL 1 applic DAILY SANNA Administration Furosemide 20 mg 09/11/19 09:00 09/11/19 08:45 Lasix PO 20 mg 0900,1400 SANNA Administration Gabapentin 300 mg 09/10/19 21:00 09/11/19 08:45 Neurontin PO 300 mg BID SANNA Administration Insulin Human Lispro 0 units 09/10/19 00:50 09/10/19 20:35 Humalog SC 5 units .BEDTIME SLIDING SC PRN Administration Bedtime Correctional Scale Insulin Human Lispro 0 units 09/11/19 06:25 09/11/19 06:42 Humalog SC 13 unit .AGGRESSIVE SLIDING PRN Administration AGGRESSIVE SLIDING SCALE Protocol Insulin Human Lispro 16 units 09/11/19 08:22 09/11/19 11:42 Humalog SC 16 unit TID-WM SANNA Administration Melatonin 3 mg 09/10/19 20:36 09/10/19 21:45 Melatonin PO 3 mg HS PRN Administration Insomnia Pantoprazole Sodium 40 mg 09/10/19 09:00 09/11/19 08:47 Protonix IVP 40 mg DAILY SANNA Administration Zinc Sulfate 220 mg 09/10/19 09:00 09/11/19 08:45 Zinc Sulfate PO 220 mg DAILY SANNA Administration - Exam General Appearance: NAD General - other findings: mild distress due to headache ENT: normocephalic atraumatic, moist mucosa Neck: no JVD Heart: RRR, no murmur, no gallops, no rubs Extremities: 2+ LE edema Extremities - other findings: bilateral pitting equal unchanged Psychiatric: normal affect, normal behavior, A&O x 3 Hosp A/P - Plan #COVID penumonia - high risk for complications; continue decadron; stopped ABx #Tension headache #T2DM - poorly controlled; likely steroid component; increased scheduled insulin and correction #CKD G3b - at baseline #HTN well controlled, continue to monitor Full code GI PPx no Ix DVT PPx: on therapeutic apixaban
[2019-09-11] MEDS: Aspirin/APAP/Caffeine Tab (Excedrin Migraine) PO PRN (15:16)
--- NOTE | 2019-09-11 18:20 | PRG ---
DATE OF SERVICE: 09/11/2019 SUBJECTIVE: Feeling better. Less cough, almost no cough. Not as dyspneic. Able to eat. She feels the taste in the food. OBJECTIVE: VITAL SIGNS: Temperature is normal. She is breathing at 20 times a minute, O2 saturation 98% on 2 L, which is a clear-cut improvement. BP 130/63. GENERAL: Awake, alert, oriented. LUNGS: Clear. HEART: S1 and S2. Regular rate. ABDOMEN: Soft, not distended or tender. EXTREMITIES: Moves extremities equally. LABORATORY DATA: Hemoglobin 12.3. D-dimer 2 and ferritin is 185 and C-reactive protein has not been repeated 687. ASSESSMENT AND DISCUSSION: Obesity, cardiomyopathy, diastolic dysfunction, obstructive sleep apnea. She seems to be doing well at least over at this point, still early in her COVID infection. She is about 5 or 6 days maybe 5 days, so there is still room for decompensation going forward due to the beginning of inflammatory phase of illness. Job ID: [id number]
[2019-09-11] MEDS: Insulin Glargine 50 UNITS in Pre-Filled Syringe 1 EACH SC SCH (20:53)
[2019-09-12] MEDS ORDERED: Azithromycin 500 MG in Sodium Chloride 0.9% 250 ML 250 ML IVPB SCH (03:00)
[2019-09-12] MEDS: HumaLOG 300 UNITS/3 ML VIAL SC PRN ×4 (05:24→20:37)
[2019-09-12] MEDS: Furosemide 20 MG TAB PO SCH ×2 (08:12→14:34)
[2019-09-12] MEDS: Gabapentin 300 MG CAP PO SCH ×2 (08:12→20:30)
[2019-09-12] MEDS: Carvedilol 3.125 MG TAB PO SCH ×2 (08:12→20:30)
[2019-09-12] MEDS: Ascorbic Acid 500 mg Chewable Tablet PO SCH (08:12)
[2019-09-12] MEDS: Zinc Sulfate 220 MG CAP PO SCH (08:12)
[2019-09-12] MEDS: Aspirin/APAP/Caffeine Tab (Excedrin Migraine) PO PRN (08:13)
[2019-09-12] MEDS: Apixaban 5 MG TAB PO SCH ×2 (08:13→20:30)
[2019-09-12] MEDS: Aspirin 81 mg Enteric Coated Tablet PO SCH (08:13)
[2019-09-12] MEDS: Dexamethasone 10 MG/ML VIAL SLOW IVP SCH (08:13)
[2019-09-12] MEDS: Citalopram 20 MG TAB PO SCH (08:13)
[2019-09-12] MEDS: HumaLOG 300 UNITS/3 ML VIAL SC SCH ×3 (08:15→16:43)
[2019-09-12] MEDS: Fluticasone Propionate Nasal Spray 16 gm Bottle NASAL SCH (08:17)
[2019-09-12] MEDS ORDERED: HYDROcodone/Acetaminophen 7.5/325 mg Tablet PO PRN (08:24)
[2019-09-12] MEDS ORDERED: Milk Of Magnesia 30 ML UDCUP PO PRN (08:24)
[2019-09-12] MEDS ORDERED: Docusate 100 MG CAP PO SCH (09:00)
[2019-09-12] MEDS ORDERED: Polyethylene Glycol 3350 17 GM Packet PO PRN (09:00)
[2019-09-12 10:22] VITALS: BMI 52.1
--- NOTE | 2019-09-12 16:41 | PDOC.HOSPP ---
- Subjective Encounter Date: 09/12/19 Encounter Time: 09:00 Subjective: no overnight events. this morning, feeling better overall. Headache resolved. Hasn't had bowel movement since admission, baseline daily - Objective Vital Signs & Weight: Vital Signs (12 hours) Temp Pulse Pulse Pulse Resp BP BP 09/12/19 12:20 97.5 F L 59 L 20 09/12/19 09:45 59 L 88 140/84 141/83 H 09/12/19 08:20 09/12/19 08:10 97.2 F L 60 20 BP BP Pulse Ox Pulse Ox Pulse Ox 09/12/19 12:20 140/70 95 09/12/19 09:45 94 L 94 L 09/12/19 08:20 96 09/12/19 08:10 133/66 96 Weight Admit Weight 318 lb Weight 323 lb I&O: 09/11/19 09/12/19 09/13/19 06:59 06:59 06:59 Intake Total 2210 965 Output Total 2100 1800 Balance 110 -835 Result Diagrams: 09/11/19 08:43 09/11/19 08:43 Additional Labs: Accuchecks 09/12/19 09/12/19 09/12/19 12:14 08:26 05:08 POC Glucose 249 H 333 H 343 H 09/11/19 09/11/19 09/11/19 21:03 17:16 15:24 POC Glucose 342 H 281 H 317 H 09/11/19 09/11/19 09/10/19 11:52 06:02 20:09 POC Glucose 394 H 480 H 528 H 09/10/19 09/10/19 16:16 11:45 POC Glucose 365 H 443 H Hospitalist ROS - Review of Systems Constitutional: denies: fever, chills, sweats Respiratory: denies: cough, dry, shortness of breath, hemoptysis Cardiovascular: denies: chest pain, palpitations, orthopnea Gastrointestinal: denies: nausea, vomiting, abdominal pain, diarrhea - Medication Medications: Active Medications Generic Name Dose Route Start Last Admin Trade Name Freq PRN Reason Stop Dose Admin Acetaminophen 650 mg 09/10/19 00:32 09/11/19 11:42 Tylenol PO 650 mg Q4H PRN Administration Headache/Fever/Mild Pain (1-3) Acetaminophen/Aspirin/Caffeine 1 tab 09/11/19 14:55 09/12/19 08:13 Excedrin Migraine PO 1 tab Q6H PRN Administration Headache Apixaban 5 mg 09/10/19 21:00 09/12/19 08:13 Eliquis PO 5 mg BID SANNA Administration Ascorbic Acid 1,000 mg 09/10/19 09:00 09/12/19 08:12 Vitamin C PO 1,000 mg DAILY SANNA Administration Aspirin 81 mg 09/11/19 09:00 09/12/19 08:13 Ecotrin PO 81 mg DAILY SANNA Administration Carvedilol 3.125 mg 09/10/19 21:00 09/12/19 08:12 Coreg PO 3.125 mg BID SANNA Administration Citalopram Hydrobromide 20 mg 09/11/19 09:00 09/12/19 08:13 Celexa PO 20 mg DAILY SANNA Administration Dexamethasone 6 mg 09/10/19 09:00 09/12/19 08:13 Decadron SLOW IVP 6 mg DAILY SANNA Administration Diltiazem HCl 120 mg 09/11/19 09:00 09/12/19 08:12 Cardizem Cd PO 120 mg DAILY SANNA Administration Fluticasone Propionate 0 gm 09/11/19 09:00 09/12/19 08:17 Flonase Nasal [place] NASAL 1 applic DAILY SANNA Administration Furosemide 20 mg 09/11/19 09:00 09/12/19 14:34 Lasix PO 20 mg 0900,1400 SANNA Administration Gabapentin 300 mg 09/10/19 21:00 09/12/19 08:12 Neurontin PO 300 mg BID SANNA Administration Insulin Glargine 50 units/ 0.5 mls @ 0 mls/hr 09/11/19 21:00 09/11/19 20:53 Miscellaneous Medication SC 0.5 mls HS SANNA Administration As Directed Insulin Human Lispro 0 units 09/10/19 00:50 09/11/19 21:05 Humalog SC 4 units .BEDTIME SLIDING SC PRN Administration Bedtime Correctional Scale Insulin Human Lispro 0 units 09/11/19 06:25 09/12/19 12:05 Humalog SC 6 unit .AGGRESSIVE SLIDING PRN Administration AGGRESSIVE SLIDING SCALE Protocol Insulin Human Lispro 16 units 09/11/19 08:22 09/12/19 12:04 Humalog SC 16 unit TID-WM SANNA Administration Melatonin 3 mg 09/10/19 20:36 09/10/19 21:45 Melatonin PO 3 mg HS PRN Administration Insomnia Zinc Sulfate 220 mg 09/10/19 09:00 09/12/19 08:12 Zinc Sulfate PO 220 mg DAILY SANNA Administration - Exam General Appearance: NAD, awake alert Neck: no JVD Heart: RRR, no murmur, no gallops Respiratory: CTAB, no wheezes, no rales, no ronchi Gastrointestinal: soft, non-tender, non-distended, normal bowel sounds Extremities: 1+ LE edema Psychiatric: normal affect, normal behavior, A&O x 3 Hosp A/P - Plan #COVID penumonia - high risk for complications; continue decadron; stopped ABx #Tension headache - improved/resolved; excedrin PRN #T2DM - improving; continue regimen, will adjust based on correction #CKD G3b - at baseline #HTN well controlled, continue to monitor Full code GI PPx no Ix DVT PPx: on therapeutic apixaban
[2019-09-12] MEDS: Insulin Glargine 50 UNITS in Pre-Filled Syringe 1 EACH SC SCH (20:30)
[2019-09-12] MEDS: Melatonin 3 MG TAB PO PRN (21:16)
[2019-09-12] MEDS: Acetaminophen 325 MG TAB PO PRN (21:16)
[2019-09-13] MEDS: Levothyroxine Sodium 125 MCG TAB PO SCH (05:44)
[2019-09-13] MEDS: HumaLOG 300 UNITS/3 ML VIAL SC PRN ×2 (05:52→20:53)
[2019-09-13] MEDS: Aspirin 81 mg Enteric Coated Tablet PO SCH (09:50)
[2019-09-13] MEDS: Apixaban 5 MG TAB PO SCH ×2 (09:50→19:52)
[2019-09-13] MEDS: Ascorbic Acid 500 mg Chewable Tablet PO SCH (09:50)
[2019-09-13] MEDS: Carvedilol 3.125 MG TAB PO SCH (09:51)
[2019-09-13] MEDS: Dexamethasone 10 MG/ML VIAL SLOW IVP SCH (09:51)
[2019-09-13] MEDS: Citalopram 20 MG TAB PO SCH (09:51)
[2019-09-13] MEDS: Zinc Sulfate 220 MG CAP PO SCH (09:52)
[2019-09-13] MEDS: Gabapentin 300 MG CAP PO SCH ×2 (09:52→19:52)
[2019-09-13] MEDS: Furosemide 20 MG TAB PO SCH ×2 (09:52→13:38)
[2019-09-13] MEDS: Fluticasone Propionate Nasal Spray 16 gm Bottle NASAL SCH (09:52)
[2019-09-13] MEDS: HumaLOG 300 UNITS/3 ML VIAL SC SCH ×3 (09:53→17:42)
--- NOTE | 2019-09-13 11:20 | CON ---
DATE OF CONSULTATION: REASON FOR CONSULTATION: Premature ventricular contractions bigeminy, bradycardia in the setting of COVID infection. PRIMARY MARBLE FINISHER: Janny Zee MD HISTORY OF PRESENT ILLNESS: Ms. Duran is a 69-year-old woman with history of mild coronary artery disease, history of diastolic heart failure, and morbid obesity. The patient was admitted to the hospital with symptomatic COVID pneumonia. It has been noted on the monitor that she has had some premature ventricular contractions and some brief episodes of bigeminy. Reviewing the records, the patient does have a history of paroxysmal atrial fibrillation. REVIEW OF SYSTEMS: Per the chart. PAST MEDICAL HISTORY: 1. Coronary artery disease, mild based on previous catheterization. 2. Diabetes. 3. Morbid obesity. 4. Paroxysmal atrial fibrillation. MEDICATIONS: At home including; 1. Diltiazem long-acting (Cartia XT 120 mg a day). 2. Aspirin. 3. Carvedilol 3.125 mg twice a day. 4. Metolazone. 5. Potassium. 6. Furosemide. 7. Insulin. PHYSICAL EXAMINATION: This records are obtained from the chart per current COVID recommendations direct evaluation minimized to reduce contacts. VITAL SIGNS: Blood pressure is 138/74 and pulse sometimes in the very low 60s and high 50s at times. Other exam per the chart. LABORATORY DATA: Reviewing the laboratory, the creatinine has improved from 1.57 down to 1.43. EKG does show some T-wave inversions in V3 through V6. ASSESSMENT: 1. Symptomatic COVID pneumonia. 2. Bradycardia. 3. History of atrial fibrillation. 4. Occasional ventricular bigeminy. 5. Diastolic heart failure appears to be improved. PLAN: 1. Would stop carvedilol. 2. Continue diltiazem in view of history of paroxysmal atrial fibrillation. No other recommendations at this time. Job ID: [id number]
[2019-09-13] MEDS: Senokot S 8.6-50 MG TAB PO SCH (11:46)
--- NOTE | 2019-09-13 17:13 | PDOC.HOSPP ---
- Subjective Encounter Date: 09/13/19 Encounter Time: 08:00 Subjective: no ovnernight events. this morning, feeling well and has no complaints. Increasingly frequent PVC and bigeminies on telemetry and bradycardia, especially when at rest. cardiology consulted. Inflammatory markers reduced. oxygen demand and inflammatory markers reduced. Consider discharging if continues to improve - Objective Vital Signs & Weight: Vital Signs (12 hours) Temp Pulse Resp BP Pulse Ox 09/13/19 15:52 98.3 F 64 20 159/79 H 94 L 09/13/19 12:00 97.3 F L 58 L 19 153/75 H 96 09/13/19 09:45 97.8 F 64 18 154/75 H 97 Weight Admit Weight 318 lb Weight 323 lb I&O: 09/12/19 09/13/19 09/14/19 06:59 06:59 06:59 Intake Total 965 1610 Output Total 1800 Balance -835 1610 Result Diagrams: 09/11/19 08:43 09/11/19 08:43 Additional Labs: Accuchecks 09/12/19 16:52 POC Glucose 411 H Hospitalist ROS - Review of Systems Constitutional: denies: fever, chills Respiratory: denies: cough, dry, shortness of breath Cardiovascular: reports: edema. denies: chest pain, palpitations, orthopnea, paroxysmal noc. dyspnea Gastrointestinal: denies: nausea, vomiting, abdominal pain Genitourinary: denies: dysuria, frequency - Medication Medications: Active Medications Generic Name Dose Route Start Last Admin Trade Name Freq PRN Reason Stop Dose Admin Acetaminophen 650 mg 09/10/19 00:32 09/12/19 21:16 Tylenol PO 650 mg Q4H PRN Administration Headache/Fever/Mild Pain (1-3) Acetaminophen/Aspirin/Caffeine 1 tab 09/11/19 14:55 09/12/19 08:13 Excedrin Migraine PO 1 tab Q6H PRN Administration Headache Apixaban 5 mg 09/10/19 21:00 09/13/19 09:50 Eliquis PO 5 mg BID SANNA Administration Ascorbic Acid 1,000 mg 09/10/19 09:00 09/13/19 09:50 Vitamin C PO 1,000 mg DAILY SANNA Administration Aspirin 81 mg 09/11/19 09:00 09/13/19 09:50 Ecotrin PO 81 mg DAILY SANNA Administration Citalopram Hydrobromide 20 mg 09/11/19 09:00 09/13/19 09:51 Celexa PO 20 mg DAILY SANNA Administration Dexamethasone 6 mg 09/10/19 09:00 09/13/19 09:51 Decadron SLOW IVP 6 mg DAILY SANNA Administration Diltiazem HCl 120 mg 09/11/19 09:00 09/13/19 09:51 Cardizem Cd PO 120 mg DAILY SANNA Administration Fluticasone Propionate 0 gm 09/11/19 09:00 09/13/19 09:52 Flonase Nasal [place] NASAL 1 applic DAILY SANNA Administration Furosemide 20 mg 09/11/19 09:00 09/13/19 13:38 Lasix PO 20 mg 0900,1400 SANNA Administration Gabapentin 300 mg 09/10/19 21:00 09/13/19 09:52 Neurontin PO 300 mg BID SANNA Administration Insulin Glargine 50 units/ 0.5 mls @ 0 mls/hr 09/11/19 21:00 09/12/19 20:30 Miscellaneous Medication SC 0.5 mls HS SANNA Administration As Directed Insulin Human Lispro 0 units 09/10/19 00:50 09/12/19 20:37 Humalog SC 5 units .BEDTIME SLIDING SC PRN Administration Bedtime Correctional Scale Insulin Human Lispro 0 units 09/11/19 06:25 09/13/19 05:52 Humalog SC 11 unit .AGGRESSIVE SLIDING PRN Administration AGGRESSIVE SLIDING SCALE Protocol Insulin Human Lispro 16 units 09/11/19 08:22 09/13/19 11:43 Humalog SC 16 unit TID-WM SANNA Administration Levothyroxine Sodium 125 mcg 09/13/19 06:00 09/13/19 05:44 Synthroid PO 125 mcg 0600 SANNA Administration Melatonin 3 mg 09/10/19 20:36 09/12/19 21:16 Melatonin PO 3 mg HS PRN Administration Insomnia Senna/Docusate Sodium 2 tab 09/12/19 09:01 09/13/19 11:46 Senokot S PO 2 tab BIDPRN SANNA Administration Zinc Sulfate 220 mg 09/10/19 09:00 09/13/19 09:52 Zinc Sulfate PO 220 mg DAILY SANNA Administration - Exam General Appearance: NAD, awake alert Neck: no JVD Heart: RRR, no murmur, no gallops, no rubs Respiratory: CTAB, no wheezes, no rales, no ronchi Gastrointestinal: soft, non-tender, non-distended, normal bowel sounds Extremities: 1+ LE edema Psychiatric: normal affect, normal behavior, A&O x 3 Hosp A/P - Plan #JHONNYID penumonia - high risk for complications; continue decadron; stopped ABx; inflammatory markers down; oxygen demand down; consider discharge after monitoring PVCs/bigeminy overnight #PVCs/bigeminy, bradycardia - per cardiology, stop beta trista, continue calcium channel trista #Tension headache - improved/resolved; excedrin PRN #T2DM - increased insulin regimen based on correction (09/13) #CKD G3b - at baseline #HTN poorly controlled; started lisinopril Full code GI PPx no Ix DVT PPx: on therapeutic apixaban
[2019-09-13] MEDS ORDERED: HumaLOG 300 UNITS/3 ML VIAL SC SCH ×2 (17:30→17:45)
[2019-09-13] MEDS ORDERED: Lisinopril 20 MG TAB PO SCH (17:30)
[2019-09-13] MEDS: Insulin Glargine 75 UNITS in Pre-Filled Syringe 1 EACH SC SCH (20:52)
[2019-09-13] MEDS: Acetaminophen 325 MG TAB PO PRN (20:54)
[2019-09-13] MEDS: Melatonin 3 MG TAB PO PRN (20:55)
[2019-09-14] MEDS: Levothyroxine Sodium 125 MCG TAB PO SCH (05:53)
[2019-09-14] MEDS: HumaLOG 300 UNITS/3 ML VIAL SC PRN ×4 (05:54→20:22)
[2019-09-14] MEDS: HumaLOG 300 UNITS/3 ML VIAL SC SCH ×3 (08:34→17:18)
[2019-09-14] MEDS: Ascorbic Acid 500 mg Chewable Tablet PO SCH (08:35)
[2019-09-14] MEDS: Lisinopril 20 MG TAB PO SCH (08:36)
[2019-09-14] MEDS: Zinc Sulfate 220 MG CAP PO SCH (08:36)
[2019-09-14] MEDS: Aspirin 81 mg Enteric Coated Tablet PO SCH (08:36)
[2019-09-14] MEDS: Gabapentin 300 MG CAP PO SCH ×2 (08:36→19:46)
[2019-09-14] MEDS: Citalopram 20 MG TAB PO SCH (08:36)
[2019-09-14] MEDS: Apixaban 5 MG TAB PO SCH ×2 (08:37→19:46)
[2019-09-14] MEDS: Dexamethasone 10 MG/ML VIAL SLOW IVP SCH (08:37)
[2019-09-14] MEDS: Furosemide 20 MG TAB PO SCH ×2 (08:37→14:15)
[2019-09-14] MEDS: Fluticasone Propionate Nasal Spray 16 gm Bottle NASAL SCH (08:39)
--- NOTE | 2019-09-14 10:01 | PRG ---
DATE OF SERVICE: 09/14/2019 SUBJECTIVE: Ms. Duarn was taken off the beta-trista. Heart rate is in the 60s today. They seemed to be decreased in frequency and PVCs. PHYSICAL EXAMINATION: Not done due to COVID positive. I did call the patient's room. 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 ASSESSMENT: 1. Premature ventricular contractions seem to be somewhat reduced. 2. Mild coronary disease best treated medically. PLAN: 1. To leave her off the beta trista. 2. Continue Cardizem as we are doing. 3. Please call if needed. 4. The patient, otherwise, is stable from a cardiac standpoint. Job ID: [id number]
[2019-09-14 11:45] LABS: Hemoglobin 13.8 g/dL (12.0-16.0); Platelet Count 319 thou/uL (130-400)
[2019-09-14] MEDS: Senokot S 8.6-50 MG TAB PO SCH (14:15)
--- NOTE | 2019-09-14 15:58 | PDOC.HOSPP ---
- Subjective Encounter Date: 09/14/19 Encounter Time: 08:00 Subjective: Pt seen for followup re: COVID 19 pneumonia. Feels better. - Objective Vital Signs & Weight: Vital Signs (12 hours) Temp Pulse Resp BP Pulse Ox 09/14/19 11:05 98.1 F 60 18 130/68 96 09/14/19 08:35 98.0 F 60 20 118/60 95 Weight Admit Weight 318 lb Weight 308 lb 12.8 oz I&O: 09/13/19 09/14/19 09/15/19 06:59 06:59 06:59 Intake Total 1610 2140 480 Output Total 2900 400 Balance 1610 -760 80 Result Diagrams: 09/14/19 11:29 09/14/19 11:29 Additional Labs: Accuchecks 09/14/19 09/14/19 09/13/19 11:07 06:00 20:03 POC Glucose 223 H 225 H 385 H 09/13/19 09/13/19 09/13/19 17:02 11:54 05:52 POC Glucose 469 H 216 H 319 H 09/12/19 20:39 POC Glucose 450 H labs and MARs reviewed by [facility] Hospitalist ROS - Review of Systems Respiratory: reports: cough, dry. denies: shortness of breath, hemoptysis, SOB with excertion, pleuritic pain, sputum, wheezing Cardiovascular: denies: chest pain, palpitations, orthopnea, paroxysmal noc. dyspnea, edema, light headedness - Medication Medications: Active Medications Generic Name Dose Route Start Last Admin Trade Name Freq PRN Reason Stop Dose Admin Acetaminophen 650 mg 09/10/19 00:32 09/13/19 20:54 Tylenol PO 650 mg Q4H PRN Administration Headache/Fever/Mild Pain (1-3) Acetaminophen/Aspirin/Caffeine 1 tab 09/11/19 14:55 09/12/19 08:13 Excedrin Migraine PO 1 tab Q6H PRN Administration Headache Apixaban 5 mg 09/10/19 21:00 09/14/19 08:37 Eliquis PO 5 mg BID SANNA Administration Ascorbic Acid 1,000 mg 09/10/19 09:00 09/14/19 08:35 Vitamin C PO 1,000 mg DAILY SANNA Administration Aspirin 81 mg 09/11/19 09:00 09/14/19 08:36 Ecotrin PO 81 mg DAILY SANNA Administration Citalopram Hydrobromide 20 mg 09/11/19 09:00 09/14/19 08:36 Celexa PO 20 mg DAILY SANNA Administration Dexamethasone 6 mg 09/10/19 09:00 09/14/19 08:37 Decadron SLOW IVP 6 mg DAILY SANNA Administration Diltiazem HCl 120 mg 09/11/19 09:00 09/14/19 08:36 Cardizem Cd PO 120 mg DAILY SANNA Administration Fluticasone Propionate 0 gm 09/11/19 09:00 09/14/19 08:39 Flonase Nasal [place] NASAL 1 applic DAILY SANNA Administration Furosemide 20 mg 09/11/19 09:00 09/14/19 14:15 Lasix PO 20 mg 0900,1400 SANNA Administration Gabapentin 300 mg 09/10/19 21:00 09/14/19 08:36 Neurontin PO 300 mg BID SANNA Administration Insulin Glargine 75 units/ 0.75 mls @ 0 mls/hr 09/13/19 21:00 09/13/19 20:52 Miscellaneous Medication SC 0.75 mls HS SANNA Administration As Directed Insulin Human Lispro 0 units 09/10/19 00:50 09/13/19 20:53 Humalog SC 5 units .BEDTIME SLIDING SC PRN Administration Bedtime Correctional Scale Insulin Human Lispro 0 units 09/11/19 06:25 09/14/19 12:25 Humalog SC 6 unit .AGGRESSIVE SLIDING PRN Administration AGGRESSIVE SLIDING SCALE Protocol Insulin Human Lispro 20 units 09/14/19 08:00 09/14/19 12:24 Humalog SC 20 unit TID-WM SANNA Administration Levothyroxine Sodium 125 mcg 09/13/19 06:00 09/14/19 05:53 Synthroid PO 125 mcg 0600 SANNA Administration Lisinopril 20 mg 09/14/19 09:00 09/14/19 08:36 Zestril PO 20 mg DAILY SANNA Administration Melatonin 3 mg 09/10/19 20:36 09/13/19 20:55 Melatonin PO 3 mg HS PRN Administration Insomnia Polyethylene Glycol 17 gm 09/12/19 09:00 09/13/19 17:48 Miralax PO 17 gm DAILYPRN PRN Administration Constipation Senna/Docusate Sodium 2 tab 09/12/19 09:01 09/14/19 14:15 Senokot S PO 2 tab BIDPRN SANNA Administration Zinc Sulfate 220 mg 09/10/19 09:00 09/14/19 08:36 Zinc Sulfate PO 220 mg DAILY SANNA Administration - Exam General Appearance: awake alert General - other findings: Morbid obesity Eye: anicteric sclera ENT: moist mucosa Neck: supple Heart: RRR Respiratory: CTAB Gastrointestinal: soft, non-tender Psychiatric: normal affect, normal behavior Hosp A/P - Plan - Assessment/Plan #COVID penumonia - continue dexamethasone #Tension headache - improved #PVCs/bigeminy, bradycardia - Improved; beta trista stopped. #T2DM - [id number] accuchecks, insulin sliding scale #CKD G3b - stable #HTN -controlled, continue lisinopril
[2019-09-14] MEDS: Insulin Glargine 75 UNITS in Pre-Filled Syringe 1 EACH SC SCH (20:21)
[2019-09-15] MEDS: Levothyroxine Sodium 125 MCG TAB PO SCH (04:45)
[2019-09-15] MEDS: HumaLOG 300 UNITS/3 ML VIAL SC PRN (06:31)
[2019-09-15] MEDS: Zinc Sulfate 220 MG CAP PO SCH (08:46)
[2019-09-15] MEDS: Gabapentin 300 MG CAP PO SCH (08:46)
[2019-09-15] MEDS: Ascorbic Acid 500 mg Chewable Tablet PO SCH (08:46)
[2019-09-15] MEDS: Citalopram 20 MG TAB PO SCH (08:46)
[2019-09-15] MEDS: HumaLOG 300 UNITS/3 ML VIAL SC SCH (08:46)
[2019-09-15] MEDS: Apixaban 5 MG TAB PO SCH (08:47)
[2019-09-15] MEDS: Lisinopril 20 MG TAB PO SCH (08:47)
[2019-09-15] MEDS: Aspirin 81 mg Enteric Coated Tablet PO SCH (08:47)
[2019-09-15] MEDS: Furosemide 20 MG TAB PO SCH (08:48)
[2019-09-15] MEDS: Fluticasone Propionate Nasal Spray 16 gm Bottle NASAL SCH (08:48)
[2019-09-15] MEDS ORDERED: Dexamethasone 4 MG TAB PO SCH (09:00)
[2019-09-15 11:46] VITALS: BP 134/78; TEMP 98.3
--- NOTE | 2019-09-15 14:48 | DIS ---
DATE OF ADMISSION: 09/09/2019 DATE OF DISCHARGE: 09/15/2019 PRIMARY CARE PROVIDER: Anant Jimenez MD DISCHARGE DIAGNOSES: 1. COVID-19 pneumonia. 2. Tension headache. 3. Premature ventricular complexes/bigeminy and bradycardia. 4. Acute kidney injury. CONDITION OF PATIENT ON THE DAY OF DISCHARGE: Stable. I assessed Ms. Duran on the day of discharge. She denies any chest pain or shortness of breath. Vital signs are stable. S1 and S2 are heard, regular. Lungs are clear to auscultation bilaterally. CONSULTATIONS DURING THIS HOSPITALIZATION: 1. Infectious Diseases, Dr. Balderas. 2. Cardiology, Dr. Mendoza. DISCHARGE MEDICATIONS: 1. Tylenol p.r.n. 2. Tums p.r.n. 3. Diltiazem 120 mg daily. 4. Colace 100 mg 2 times a day. 5. Flonase nasal spray daily. 6. [place] p.r.n. 7. Lantus 50 units daily while she is on dexamethasone, subsequently to drop down to 25 units daily. 8. DuoNeb p.r.n. 9. Levothyroxine 125 mcg daily. 10. Milk of magnesium p.r.n. 11. Protonix 40 mg daily. 12. Nitroglycerin p.r.n. 13. Apixaban 5 mg two times a day. 14. Vitamin C 1000 mg daily for 5 days. 15. Aspirin 81 mg daily. 16. Coreg has been discontinued. 17. Celexa 20 mg daily. 18. Dexamethasone 6 mg daily for 5 days. 19. Lasix 20 mg 2 times a day. 20. Gabapentin 300 mg 2 times a day. 21. Lisinopril 20 mg daily. 22. Melatonin p.r.n. 23. Metolazone 5 mg daily. 24. Potassium chloride 40 mEq daily. 25. Zinc sulfate 220 mg daily for 5 days. HOSPITAL COURSE: Ms. Duran is a pleasant 69-year-old lady who was admitted to [facility] on September 09, 2019 for COVID-19 pneumonia. Please refer to Mr. Hickman's History and Physical note dated September 10, 2019 for further details. She was also found to have acute kidney injury, which subsequently resolved. She was seen by Infectious Disease Service. She was started on dexamethasone, zinc, and vitamin C. She continued to improve clinically. She was also seen by Cardiology Service for PVCs and bradycardia. Coreg was discontinued. Her blood sugars were high. Her Lantus dose was increased. She has been asked to increase her Lantus to 50 units every night while taking dexamethasone and to subsequently drop it down to 25 units every night. She has also been advised to check her blood sugars, blood pressure and heart rate 3 times a day and show the readings to her primary care provider. She has also been advised to obtain an oximeter and keep an eye on her pulse oximetry and to seek medical attention if oxygen saturation is less than 90%. Home health services are being resumed at the time of discharge. Many thanks for allowing me to participate in your patient's care. Please feel free to contact me with any questions or concerns. POST-ACUTE CARE FOLLOWUP: With primary care provider in 3 days. ACTIVITY: As tolerated. DIET: Diabetic, heart healthy. DISCHARGE DESTINATION: Home. TIME SPENT: Total amount of time spent coordinating this discharge: 31 minutes. Job ID: [id number]
== END 2019-09-15 11:25 | disposition home health service (06) | DRG 177 ==
LOC: ERS 15:46 → ERHOLD 20:06 → 2SW 09-10 01:52
PROVIDERS: ADMIT Internal Medicine; ATTEND Internal Medicine
PROC: 8E0ZXY6 Isolation (ICD-10-PCS; principal; 2019-09-09)
DX: U07.1 COVID-19 (principal); J12.89 Other viral pneumonia; N17.9 Acute kidney failure, unspecified; J44.0 Chronic obstructive pulmonary disease with (acute) lower respiratory infection; E87.1 Hypo-osmolality and hyponatremia; I13.0 Hypertensive heart and chronic kidney disease with heart failure and stage 1 through stage 4 chronic kidney disease, or unspecified chronic kidney disease; I42.9 Cardiomyopathy, unspecified; Z68.42 Body mass index [BMI] 45.0-49.9, adult; I50.32 Chronic diastolic (congestive) heart failure; G44.209 Tension-type headache, unspecified, not intractable; I49.3 Ventricular premature depolarization; G47.33 Obstructive sleep apnea (adult) (pediatric); E03.9 Hypothyroidism, unspecified; K21.9 Gastro-esophageal reflux disease without esophagitis; R94.31 Abnormal electrocardiogram [ECG] [EKG]; E87.6 Hypokalemia; E83.42 Hypomagnesemia; E11.22 Type 2 diabetes mellitus with diabetic chronic kidney disease; N18.3 Chronic kidney disease, stage 3 (moderate); E66.01 Morbid (severe) obesity due to excess calories; E11.65 Type 2 diabetes mellitus with hyperglycemia; Z99.81 Dependence on supplemental oxygen; Z88.2 Allergy status to sulfonamides; Z88.8 Allergy status to other drugs, medicaments and biological substances; Z87.891 Personal history of nicotine dependence; Z79.82 Long term (current) use of aspirin; Z79.4 Long term (current) use of insulin; Z79.899 Other long term (current) drug therapy
CPT/HCPCS: 36415; 36416; 71275; 74177; 80048; 80053; 82553; 82565; 82728; 83690; 83735; 83880; 84145; 84484; 85014; 85018; 85025; 85049; 85379; 86140; 93005; 94660; 96365; 96366; 96367; 96368; 96375; C9113; J0456; J0696; J1100; J1200; J1815; J2920; J3475; J3480; J3490; J7050; J8540; Q0162; Q9967; S0028; U0002

== ENCOUNTER 2019-10-16 16:51 | Emergency (ER) | payer MEDICARE, OTHER ==
--- NOTE | 2019-10-16 17:40 | CT ---
EXAM: CT brain without contrast HISTORY: Headache and seizure-like activity COMPARISON: None TECHNIQUE: Multiple contiguous axial images were obtained and a CT of the brain without contrast. FINDINGS: The brain is normal in morphology and attenuation without focal lesions or confluent areas of infarction. There is no evidence of hydrocephalus, intracranial hemorrhage, or extra-axial fluid collection. The calvarium and overlying soft tissues are unremarkable. The visualized paranasal sinuses and masto id air cells are well aerated. IMPRESSION: No evidence of acute intracranial abnormality
[2019-10-16 18:24] LABS: #Basophils 0.1 thou/uL (0.0-0.2); #Eosinphils 0.1 thou/uL (0.0-0.7); #Lymphocytes 3.9 thou/uL (1.20-3.40); #Monocytes 0.8 thou/uL (0.11-0.59); #Neutrophils 6.3 thou/uL (1.40-6.50); %Basophils 0.8 % (0.0-1.0); %Lymphocytes 35.1 % (21.0-51.0); %Monocytes 6.7 % (0.0-10.0); %Neutrophils 56.3 % (42.0-75.0); Hemoglobin 12.4 g/dL (12.0-16.0); Mean Corpuscular HGB CONC 32.6 g/dL (32.0-36.0); Mean Corpuscular Hemoglobin 29.5 pg (27.0-31.0); Mean Corpuscular Volume 90.5 fL (78.0-98.0); Mean Platelet Volume 8.4 fL (7.4-10.4); Platelet Count 254 thou/uL (130-400); RBC Distribution Width 15.4 % (11.5-14.5); Red Blood Cell (RBC) Count 4.21 mill/uL (4.20-5.40); White Blood Cell (WBC) Count 11.1 thou/uL (4.8-10.8)
[2019-10-16 18:51] LABS: ALT (SGPT) 13 U/L (8-55); AST (SGOT) 16 U/L (5-34); Albumin 3.5 g/dL (3.4-4.8); Alkaline Phosphatase 116 U/L (40-110); Anion Gap 17 mmol/L (10-20); BUN (Urea Nitrogen) 29 mg/dL (9.8-20.1); Bilirubin, Total 0.3 mg/dL (0.2-1.2); Calc. Creatinine Clearance 0 mL/min (70-130); Carbon Dioxide 25 mmol/L (23-31); Chloride 97 mmol/L (98-107); Estimated GFR-MDRD 39; Globulin 3.6 g/dL (2.4-3.5); Glucose 347 mg/dL (80-115); Potassium 4.8 mmol/L (3.5-5.1); Protein, Total 7.1 g/dL (6.0-8.3); Sodium 134 mmol/L (136-145)
[2019-10-16] MEDS ORDERED: Insulin Regular 300 UNITS/3 ML VIAL ONE (19:43)
--- NOTE | 2019-10-19 14:35 | EKG ---
Test Reason : Blood Pressure : / mmHG Vent. Rate : 076 BPM Atrial Rate : 076 BPM P-R Int : 162 ms QRS Dur : 114 ms QT Int : 420 ms P-R-T Axes : 053 106 -21 degrees QTc Int : 472 ms Normal sinus rhythm Rightward axis Incomplete right bundle branch block Prolonged QT Abnormal ECG Confirmed by SHAHRAM ZENG, LYSSA Santana ([id number]), purchasing expeditor DEREK LEDBETTER ([id number]) on 10/19/2019 2:35:25 PM Referred By: Confirmed By:LYSSA OMALLEY MD
== END 2019-10-16 20:38 | disposition home or self-care (01) ==
LOC: ERS 16:51
DX: R56.9 Unspecified convulsions (principal); E11.65 Type 2 diabetes mellitus with hyperglycemia; E03.9 Hypothyroidism, unspecified; F41.9 Anxiety disorder, unspecified; Z79.899 Other long term (current) drug therapy
CPT/HCPCS: 36415; 36416; 70450; 80053; 84146; 85025; 93005; 96361; 96374; J1815

== ENCOUNTER 2021-10-14 22:35 | Inpatient (IN) | payer MEDICARE ==
[2021-10-14] MEDS ORDERED: Cefepime 2 GM VIAL ONE (23:50)
[2021-10-14 23:54] LABS: Hemoglobin 9.7 g/dL (12.0-16.0); Mean Corpuscular HGB CONC 32.9 g/dL (32.0-36.0); Mean Corpuscular Volume 85.1 fL (78.0-98.0); Mean Platelet Volume 7.2 fL (7.4-10.4); Platelet Count 294 thou/uL (130-400); RBC Distribution Width 14.5 % (11.5-14.5); Red Blood Cell (RBC) Count 3.47 mill/uL (4.20-5.40); White Blood Cell (WBC) Count 12.5 thou/uL (4.8-10.8)
[2021-10-15 00:01] LABS: ALT (SGPT) Less than 7 U/L (8-55); AST (SGOT) 7 U/L (5-34); Albumin 3.2 g/dL (3.4-4.8); Alkaline Phosphatase 99 U/L (40-110); Anion Gap 20 mmol/L (10-20); BUN (Urea Nitrogen) 120 mg/dL (9.8-20.1); Bilirubin, Total 0.4 mg/dL (0.2-1.2); Calc. Creatinine Clearance 0 mL/min (70-130); Calcium 8.1 mg/dL (7.8-10.44); Carbon Dioxide 18 mmol/L (23-31); Chloride 89 mmol/L (98-107); Estimated GFR 15; Globulin 3.2 g/dL (2.4-3.5); Glucose 190 mg/dL (80-115); Lipase 530 U/L (8-78); Protein, Total 6.4 g/dL (5.8-8.1); Sodium 122 mmol/L (136-145)
[2021-10-15 00:22] LABS: Band 11 % (5-11); Lymphocytes 9 % (21-51); MDiff Complete? YES; Monocytes 6 % (0-10); Neutrophil 74 % (42-75)
[2021-10-15] MEDS ORDERED: NOREPINEPHRINE 8 MG/250 ML-D5W 250 ML ONE (00:29)
[2021-10-15 00:54] LABS: SARS-CoV-2 NAA Rapid Test Not Detected (NotDetected)
[2021-10-15 00:57] LABS: Bacteria/HPF 4+ HPF (None Seen); Bilirubin Negative (Negative); Blood, Urine Negative (Negative); Clarity Turbid (Clear); Glucose, Urine (Dipstick) Normal (Negative); Ketone, Urine Negative (Negative); Leukocyte 500 Leu/uL (Negative); Nitrite Negative (Negative); Protein, Urine (Dipstick) 10 mg/dL (Neg-Trace); RBC/HPF 0-3 HPF (0-3); Specific Gravity, Urine 1.012 (1.002-1.036); Squamous Epithelial 0-3 HPF (0-3); Urobilinogen Normal mg/dL (Less than 2); WBC/HPF Greater than 50 HPF (0-3)
[2021-10-15] MEDS ORDERED: Vancomycin 1.5 GRAM/300 ML BAG 1.5 GM in Premix Bag 1 BAG IVPB SCH (01:30)
[2021-10-15] MEDS ORDERED: Ondansetron PF 4 MG/2 ML Vial IVP PRN (02:27)
[2021-10-15 03:56] LABS: Troponin I Less than 0.010 ng/mL (< 0.028)
[2021-10-15] MEDS ORDERED: Nystatin Powder 15 GM BOT TOP PRN (04:41)
[2021-10-15] MEDS ORDERED: NOREPINEPHRINE 8 MG/250 ML-D5W 250 ML IVPB SCH (04:45)
[2021-10-15 05:27] LABS: ALT (SGPT) 7 U/L (8-55); AST (SGOT) 10 U/L (5-34); Albumin 3.1 g/dL (3.4-4.8); Alkaline Phosphatase 95 U/L (40-110); Anion Gap 17 mmol/L (10-20); BUN (Urea Nitrogen) 113 mg/dL (9.8-20.1); Bilirubin, Total 0.4 mg/dL (0.2-1.2); Calc. Creatinine Clearance 0 mL/min (70-130); Calcium 8.4 mg/dL (7.8-10.44); Carbon Dioxide 17 mmol/L (23-31); Chloride 92 mmol/L (98-107); Estimated GFR 17; Globulin 4.1 g/dL (2.4-3.5); Glucose 131 mg/dL (80-115); Potassium 5.2 mmol/L (3.5-5.1); Protein, Total 7.2 g/dL (5.8-8.1); Sodium 121 mmol/L (136-145)
[2021-10-15 05:28] LABS: Cardiac Risk 4.9 (Less than 4.5); Cholesterol 122 mg/dl (< 200 Desired); HDL Cholesterol 25 mg/dL (>60 Neg Risk); LDL Cholesterol, Calculated 77 mg/dL; Magnesium 1.6 mg/dL (1.6-2.6); Triglycerides 100 mg/dL (Less than 150)
[2021-10-15 06:05] LABS: Hemoglobin 10.2 g/dL (12.0-16.0); Mean Corpuscular HGB CONC 32.4 g/dL (32.0-36.0); Mean Corpuscular Hemoglobin 27.7 pg (27.0-31.0); Mean Corpuscular Volume 85.6 fL (78.0-98.0); Mean Platelet Volume 7.2 fL (7.4-10.4); Platelet Count 287 thou/uL (130-400); RBC Distribution Width 14.6 % (11.5-14.5); Red Blood Cell (RBC) Count 3.69 mill/uL (4.20-5.40); White Blood Cell (WBC) Count 13.7 thou/uL (4.8-10.8)
[2021-10-15 06:06] LABS: Band 7 % (5-11); Lymphocytes 15 % (21-51); MDiff Complete? YES; Monocytes 11 % (0-10); Neutrophil 67 % (42-75)
[2021-10-15 06:28] LABS: Troponin I Less than 0.010 ng/mL (< 0.028)
[2021-10-15] MEDS ORDERED: Albumin 25% 25 GM/100 ML BOT IVPB SCH (06:30)
[2021-10-15 06:42] VITALS: BMI 54.5
[2021-10-15] MEDS: Sodium Chloride 0.9% 1,000 ML IV SCH ×2 (06:45→19:00)
[2021-10-15] MEDS ORDERED: [UNRECOGNIZED DRUG - REMARK] FS SCH (06:45)
[2021-10-15] MEDS ORDERED: Dextrose 5% in Water 1,000 ML IV PRN (07:22)
[2021-10-15] MEDS ORDERED: Dextrose 50% Abboject 50 ML SYRINGE SLOW IVP PRN (07:22)
[2021-10-15] MEDS ORDERED: HumaLOG 300 UNITS/3 ML VIAL SC PRN ×2 (07:22)
[2021-10-15] MEDS ORDERED: Vancomycin HCl 500 MG in Sodium Chloride 0.9% 100 ML IVPB SCH (07:30)
[2021-10-15] MEDS: Heparin 5,000 UNITS/ML VIAL SC SCH ×3 (08:33→21:42)
[2021-10-15] MEDS ORDERED: Famotidine 20 MG TAB PO SCH (09:00)
[2021-10-15] MEDS: Cefepime 1 GM in Sodium Chloride 0.9% 100 ML IVPB SCH (23:10)
[2021-10-15] MEDS: Acetaminophen 325 MG TAB PO PRN (23:13)
[2021-10-16] MEDS: Sodium Chloride 0.9% 1,000 ML IV SCH ×2 (03:31→17:14)
[2021-10-16 04:07] LABS: Mean Corpuscular HGB CONC 33.1 g/dL (32.0-36.0); Mean Corpuscular Hemoglobin 28.6 pg (27.0-31.0); Mean Corpuscular Volume 86.3 fL (78.0-98.0); Mean Platelet Volume 7.1 fL (7.4-10.4); Platelet Count 290 thou/uL (130-400); RBC Distribution Width 14.6 % (11.5-14.5); Red Blood Cell (RBC) Count 3.49 mill/uL (4.20-5.40); White Blood Cell (WBC) Count 11.9 thou/uL (4.8-10.8)
[2021-10-16 04:26] LABS: ALT (SGPT) 7 U/L (8-55); AST (SGOT) 8 U/L (5-34); Albumin 3.3 g/dL (3.4-4.8); Alkaline Phosphatase 94 U/L (40-110); Anion Gap 20 mmol/L (10-20); BUN (Urea Nitrogen) 111 mg/dL (9.8-20.1); Bilirubin, Total 0.4 mg/dL (0.2-1.2); Calc. Creatinine Clearance 53 mL/min (70-130); Calcium 8.7 mg/dL (7.8-10.44); Carbon Dioxide 18 mmol/L (23-31); Chloride 93 mmol/L (98-107); Estimated GFR 21; Globulin 3.7 g/dL (2.4-3.5); Glucose 134 mg/dL (80-115); Magnesium 1.6 mg/dL (1.6-2.6); Potassium 4.6 mmol/L (3.5-5.1); Sodium 126 mmol/L (136-145); Vancomycin, Random 14.5 ug/mL (See Comment)
[2021-10-16 04:35] LABS: Band 8 % (5-11); Eosinophils 1 % (0-10); Lymphocytes 10 % (21-51); MDiff Complete? YES; Metamyelocyte 1 % (0-0); Monocytes 4 % (0-10); Neutrophil 76 % (42-75)
[2021-10-16] MEDS ORDERED: Vancomycin HCl 1.25 GM in Sodium Chloride 0.9% 250 ML 250 ML IVPB SCH (06:00)
[2021-10-16] MEDS: Acetaminophen 325 MG TAB PO PRN ×2 (08:43→17:12)
[2021-10-16] MEDS: Heparin 5,000 UNITS/ML VIAL SC SCH ×3 (08:43→20:39)
[2021-10-16] MEDS ORDERED: cefTRIAXone\\ROCEPHIN 1 GM in Sodium Chloride 0.9% 100 ML IVPB SCH (15:00)
[2021-10-16] MEDS ORDERED: Lorazepam 0.5 MG TAB PO PRN (18:05)
[2021-10-16] MEDS ORDERED: Lorazepam 0.5 MG TAB PO SCH (22:45)
[2021-10-16] MEDS ORDERED: Ziprasidone 20 MG VIAL IM SCH (22:45)
[2021-10-16] MEDS: Cefepime 1 GM in Sodium Chloride 0.9% 100 ML IVPB SCH (22:55)
[2021-10-17] MEDS: Acetaminophen 325 MG TAB PO PRN (03:20)
[2021-10-17 05:11] LABS: #Eosinphils 0.1 thou/uL (0.0-0.7); #Lymphocytes 1.4 thou/uL (1.20-3.40); #Monocytes 0.8 thou/uL (0.11-0.59); #Neutrophils 6.8 thou/uL (1.40-6.50); %Basophils 0.3 % (0.0-1.0); %Eosinophils 0.7 % (0.0-10.0); %Lymphocytes 15.6 % (21.0-51.0); %Monocytes 8.9 % (0.0-10.0); %Neutrophils 74.5 % (42.0-75.0); Hemoglobin 10.3 g/dL (12.0-16.0); Mean Corpuscular HGB CONC 33.1 g/dL (32.0-36.0); Mean Corpuscular Hemoglobin 28.9 pg (27.0-31.0); Mean Corpuscular Volume 87.1 fL (78.0-98.0); Platelet Count 262 thou/uL (130-400); RBC Distribution Width 14.4 % (11.5-14.5); Red Blood Cell (RBC) Count 3.55 mill/uL (4.20-5.40); White Blood Cell (WBC) Count 9.1 thou/uL (4.8-10.8)
[2021-10-17 05:26] LABS: Vancomycin, Random 17.5 ug/mL (See Comment)
[2021-10-17 05:31] LABS: ALT (SGPT) Less than 7 U/L (8-55); AST (SGOT) 9 U/L (5-34); Albumin 3.3 g/dL (3.4-4.8); Alkaline Phosphatase 90 U/L (40-110); Anion Gap 19 mmol/L (10-20); BUN (Urea Nitrogen) 95 mg/dL (9.8-20.1); Bilirubin, Total 0.4 mg/dL (0.2-1.2); Calc. Creatinine Clearance 77 mL/min (70-130); Calcium 8.9 mg/dL (7.8-10.44); Carbon Dioxide 17 mmol/L (23-31); Chloride 98 mmol/L (98-107); Estimated GFR 32; Globulin 3.8 g/dL (2.4-3.5); Glucose 141 mg/dL (80-115); Magnesium 1.6 mg/dL (1.6-2.6); Potassium 4.5 mmol/L (3.5-5.1); Protein, Total 7.1 g/dL (5.8-8.1); Sodium 129 mmol/L (136-145)
[2021-10-17] MEDS: Sodium Chloride 0.9% 1,000 ML IV SCH (06:17)
[2021-10-17] MEDS: Heparin 5,000 UNITS/ML VIAL SC SCH ×3 (08:35→22:08)
[2021-10-17] MEDS ORDERED: Vancomycin HCl 750 MG in Sodium Chloride 0.9% 250 ML 250 ML IVPB SCH (09:00)
[2021-10-17] MEDS ORDERED: Magnesium Citrate 300 ML BOT PO SCH (09:15)
[2021-10-17] MEDS: Morphine 4 MG/ML VIAL SLOW IVP PRN ×3 (09:35→22:13)
[2021-10-17] MEDS ORDERED: Iopamidol-370 76% 500 ML 1 ML ONE (15:45)
[2021-10-17] MEDS ORDERED: Famotidine/PF 20 mg/2ml Vial SLOW IVP SCH (17:30)
[2021-10-17] MEDS ORDERED: methylPREDNISolone Sod Succ 40 MG VIAL IVP SCH (17:30)
[2021-10-17] MEDS ORDERED: diphenhydrAMINE 50 MG/ML VIAL IVP SCH (17:30)
[2021-10-17] MEDS: Senokot S 8.6-50 MG TAB PO SCH (22:09)
[2021-10-17] MEDS ORDERED: Cefepime 1 GM in Sodium Chloride 0.9% 100 ML IVPB SCH (23:00)
[2021-10-18] MEDS: Acetaminophen 325 MG TAB PO PRN (00:34)
[2021-10-18 07:26] LABS: #Lymphocytes 0.8 thou/uL (1.20-3.40); #Monocytes 0.4 thou/uL (0.11-0.59); #Neutrophils 7.6 thou/uL (1.40-6.50); %Basophils 0.1 % (0.0-1.0); %Eosinophils 0.2 % (0.0-10.0); %Lymphocytes 8.7 % (21.0-51.0); %Monocytes 4.6 % (0.0-10.0); %Neutrophils 86.4 % (42.0-75.0); Hemoglobin 9.5 g/dL (12.0-16.0); Mean Corpuscular HGB CONC 31.9 g/dL (32.0-36.0); Mean Corpuscular Hemoglobin 28.1 pg (27.0-31.0); Mean Corpuscular Volume 88.1 fL (78.0-98.0); Mean Platelet Volume 7.1 fL (7.4-10.4); Platelet Count 257 thou/uL (130-400); RBC Distribution Width 14.4 % (11.5-14.5); Red Blood Cell (RBC) Count 3.39 mill/uL (4.20-5.40); White Blood Cell (WBC) Count 8.8 thou/uL (4.8-10.8)
[2021-10-18 07:36] LABS: Anion Gap 19 mmol/L (10-20); BUN (Urea Nitrogen) 85 mg/dL (9.8-20.1); Calc. Creatinine Clearance 90 mL/min (70-130); Calcium 9.3 mg/dL (7.8-10.44); Carbon Dioxide 19 mmol/L (23-31); Chloride 102 mmol/L (98-107); Estimated GFR 38; Glucose 164 mg/dL (80-115); Potassium 5.3 mmol/L (3.5-5.1); Sodium 135 mmol/L (136-145)
[2021-10-18] MEDS ORDERED: Insulin Regular 300 UNITS/3 ML VIAL IVP SCH (08:30)
[2021-10-18] MEDS: Heparin 5,000 UNITS/ML VIAL SC SCH ×2 (08:35→15:34)
[2021-10-18] MEDS: Senokot S 8.6-50 MG TAB PO SCH (08:35)
[2021-10-18] MEDS ORDERED: Polyethylene Glycol 3350 17 GM Packet PO SCH (09:00)
[2021-10-18] MEDS ORDERED: Furosemide 40 MG/4 ML VIAL SLOW IVP SCH ×2 (09:00→15:00)
[2021-10-18] MEDS ORDERED: Dextrose 50% Abboject 50 ML SYRINGE SLOW IVP SCH (09:00)
[2021-10-18] MEDS: Morphine 4 MG/ML VIAL SLOW IVP PRN ×2 (09:26→15:33)
[2021-10-18] MEDS ORDERED: cefTRIAXone\\ROCEPHIN 1 GM in Sodium Chloride 0.9% 100 ML IVPB SCH (11:00)
[2021-10-18 14:51] LABS: Potassium 5.3 mmol/L (3.5-5.1)
[2021-10-18 17:03] VITALS: BP 127/75; TEMP 97.7
== END 2021-10-18 17:20 | disposition hospice, home (50) | DRG 871 ==
LOC: ERS 22:35 → CCU 10-15 02:51 → T4-B 10-16 15:08
PROVIDERS: ADMIT Hospitalist; ATTEND Hospitalist
PROC: 3E03329 Introduction of Other Anti-infective into Peripheral Vein, Percutaneous Approach (ICD-10-PCS; principal; 2021-10-15)
PROC: 3E033XZ Introduction of Vasopressor into Peripheral Vein, Percutaneous Approach (ICD-10-PCS; 2021-10-15)
DX: A41.51 Sepsis due to Escherichia coli [E. coli] (principal); I50.33 Acute on chronic diastolic (congestive) heart failure; R65.21 Severe sepsis with septic shock; K85.90 Acute pancreatitis without necrosis or infection, unspecified; R57.1 Hypovolemic shock; N39.0 Urinary tract infection, site not specified; I13.0 Hypertensive heart and chronic kidney disease with heart failure and stage 1 through stage 4 chronic kidney disease, or unspecified chronic kidney disease; N17.9 Acute kidney failure, unspecified; E87.1 Hypo-osmolality and hyponatremia; I42.9 Cardiomyopathy, unspecified; E27.40 Unspecified adrenocortical insufficiency; J98.11 Atelectasis; J96.11 Chronic respiratory failure with hypoxia; Z68.43 Body mass index [BMI] 50.0-59.9, adult; G93.40 Encephalopathy, unspecified; Z66 Do not resuscitate; Z20.822 Contact with and (suspected) exposure to COVID-19; N18.30 Chronic kidney disease, stage 3 unspecified; E11.22 Type 2 diabetes mellitus with diabetic chronic kidney disease; E03.9 Hypothyroidism, unspecified; G47.33 Obstructive sleep apnea (adult) (pediatric); E66.01 Morbid (severe) obesity due to excess calories; F41.9 Anxiety disorder, unspecified; I48.0 Paroxysmal atrial fibrillation; I27.29 Other secondary pulmonary hypertension; E87.5 Hyperkalemia; E88.09 Other disorders of plasma-protein metabolism, not elsewhere classified; E11.65 Type 2 diabetes mellitus with hyperglycemia; D63.1 Anemia in chronic kidney disease; E11.69 Type 2 diabetes mellitus with other specified complication; K74.60 Unspecified cirrhosis of liver; A41.59 Other Gram-negative sepsis; T17.990A Other foreign object in respiratory tract, part unspecified in causing asphyxiation, initial encounter; Z88.2 Allergy status to sulfonamides; Z91.041 Radiographic dye allergy status; Z88.8 Allergy status to other drugs, medicaments and biological substances; Z79.82 Long term (current) use of aspirin; Z79.890 Hormone replacement therapy; Z79.01 Long term (current) use of anticoagulants; Z79.899 Other long term (current) drug therapy; Z79.51 Long term (current) use of inhaled steroids; Z79.84 Long term (current) use of oral hypoglycemic drugs; Z99.81 Dependence on supplemental oxygen; Z98.51 Tubal ligation status; Z90.49 Acquired absence of other specified parts of digestive tract; Z82.49 Family history of ischemic heart disease and other diseases of the circulatory system; J44.9 Chronic obstructive pulmonary disease, unspecified
CPT/HCPCS: 36415; 36416; 71045; 71275; 74176; 80048; 80053; 80061; 80202; 81003; 81015; 82533; 83605; 83690; 83735; 83880; 84484; 85025; 85379; 87040; 87077; 87086; 87186; 90471; 90732; 93005; 93010; 93306; 96365; 96366; 96367; G0009; J0692; J0696; J1200; J1644; J1815; J1940; J2270; J2920; J3370; J3486; J3490; J7050; J7999; P9047; Q9967; S0028; U0002